=== PATIENT | male | born 1940 | race Caucasian/White ===

== ENCOUNTER 2016-11-03 12:30 | Inpatient (IN) | payer OTHER ==
[2016-11-03] MEDS ORDERED: PHARMACY CONSULT - DOSE _____ XX SCH (15:06)
[2016-11-03] MEDS: NS 1000 ML 1,000 ML IV SCH (15:37)
[2016-11-03 15:45] LABS: BASOPHILS # (AUTO) 0.1 X10^3/uL (0.0-0.1); BASOPHILS % (AUTO) 0.8 % (0.2-1.0); EOSINOPHILS # (AUTO) 0.4 x10^3/uL (0.0-0.2); EOSINOPHILS % (AUTO) 2.7 % (0.9-2.9); LYMPHOCYTES # (AUTO) 1.3 X10^3/uL (1.3-2.9); LYMPHOCYTES % (AUTO) 9.7 % (21.0-51.0); MEAN CORPUSCULAR HEMOGLOBIN 30.4 pg (27.0-34.0); MEAN CORPUSCULAR HGB CONC 33.3 g/dL (33.0-35.0); MEAN CORPUSCULAR VOLUME 91.3 fL (80.0-100.0); MONOCYTES # (AUTO) 1.3 x10^3/uL (0.3-0.8); MONOCYTES % (AUTO) 9.3 % (0.0-13.0); NEUTROPHILS # (AUTO) 10.4 x10^3/uL (2.2-4.8); NEUTROPHILS % (AUTO) 77.5 % (42.0-75.0); PLATELET COUNT 327 X10^3/uL (150.0-450.0); RED BLOOD COUNT 3.28 X10^6/uL (4.7-6.0); RED CELL DISTRIBUTION WIDTH 13.5 % (11.6-16.5); WHITE BLOOD COUNT 13.5 X10^3/uL (3.6-10.0)
[2016-11-03 15:58] LABS: ALBUMIN 2.7 g/dL (3.4-5.0); C-REACTIVE PROTEIN 60.6 mg/L (0-3.0); CARBON DIOXIDE 26.5 mmol/L (21-32); CREATININE 2.05 mg/dL (0.70-1.30); TOTAL PROTEIN 7.9 g/dL (6.4-8.2)
[2016-11-03 16:02] VITALS: BMI 32.8
[2016-11-03] MEDS: HumuLIN R SUBCUT PRN (16:44)
[2016-11-03 17:50] LABS: ERYTHROCYTE SEDIMENTATION RATE 111 MM/HOUR (0-15)
[2016-11-03] MEDS: ROCEPHIN VIAL 1 GM 1 GM in NS 50 ML IV + SPIKE MINIBAG* 50 ML IV SCH (17:55)
[2016-11-03] MEDS ORDERED: MILK OF MAGNESIA PO PRN (19:07)
[2016-11-03] MEDS ORDERED: PROVENTIL NEB TX 0.083% 2.5MG/ 3ML NEB PRN (19:52)
[2016-11-03] MEDS: LIPITOR TAB 40 MG PO SCH (20:36)
[2016-11-03] MEDS: PROSCAR PO SCH (20:36)
[2016-11-03] MEDS: VISTARIL PO PRN (20:37)
[2016-11-03] MEDS: COLACE CAP 100 MG PO SCH (20:39)
[2016-11-03] MEDS: COREG TAB 12.5 MG PO SCH (20:39)
[2016-11-03] MEDS: ULTRAM PO PRN (20:39)
[2016-11-03] MEDS: COUMADIN TAB 7.5 MG PO SCH (20:41)
[2016-11-03] MEDS: SNACK - Diabetic Appropriate PO SCH (20:43)
[2016-11-03] MEDS ORDERED: LANTUS SC SCH (21:00)
[2016-11-04] MEDS ORDERED: BENADRYL CAP 50 MG PO PRN (01:41)
[2016-11-04] MEDS ORDERED: BENADRYL CAP/TAB 25 MG PO ONE (01:43)
[2016-11-04] MEDS: ULTRAM PO PRN ×3 (04:31→18:06)
[2016-11-04] MEDS: NS 1000 ML 1,000 ML IV SCH ×2 (04:32→14:23)
[2016-11-04 06:21] LABS: BASOPHILS # (AUTO) 0.1 X10^3/uL (0.0-0.1); BASOPHILS % (AUTO) 0.9 % (0.2-1.0); EOSINOPHILS # (AUTO) 0.4 x10^3/uL (0.0-0.2); EOSINOPHILS % (AUTO) 3.9 % (0.9-2.9); HEMATOCRIT 28.5 % (42.0-54.0); HEMOGLOBIN 9.6 g/dL (13.5-18.0); LYMPHOCYTES # (AUTO) 1.7 X10^3/uL (1.3-2.9); LYMPHOCYTES % (AUTO) 14.5 % (21.0-51.0); MEAN CORPUSCULAR HEMOGLOBIN 30.5 pg (27.0-34.0); MEAN CORPUSCULAR HGB CONC 33.6 g/dL (33.0-35.0); MEAN CORPUSCULAR VOLUME 90.7 fL (80.0-100.0); MEAN PLATELET VOLUME 8.5 fL (7.4-11.0); MONOCYTES # (AUTO) 1.3 x10^3/uL (0.3-0.8); MONOCYTES % (AUTO) 11.7 % (0.0-13.0); NEUTROPHILS # (AUTO) 7.9 x10^3/uL (2.2-4.8); PLATELET COUNT 287 X10^3/uL (150.0-450.0); RED BLOOD COUNT 3.15 X10^6/uL (4.7-6.0); WHITE BLOOD COUNT 11.4 X10^3/uL (3.6-10.0)
[2016-11-04 06:32] LABS: ALANINE AMINOTRANSFERASE 20 Units/L (12-78); ALBUMIN 2.5 g/dL (3.4-5.0); ALKALINE PHOSPHATASE 133 Units/L (46-116); ASPARTATE AMINO TRANSFERASE 22 Units/L (15-37); BLOOD UREA NITROGEN 49 mg/dL (7-18); CALCIUM 8.8 mg/dL (8.5-10.1); CARBON DIOXIDE 25.6 mmol/L (21-32); CHLORIDE 104 mmol/L (98-107); CREATININE 1.74 mg/dL (0.70-1.30); GLUCOSE 87 mg/dL (65-99); SODIUM 139 mmol/L (136-145); TOTAL PROTEIN 7.5 g/dL (6.4-8.2); eGFR BLACK RACES 49 (>60); eGFR NON BLACK RACES 41 (>60)
[2016-11-04 07:21] LABS: ERYTHROCYTE SEDIMENTATION RATE 108 MM/HOUR (0-15)
[2016-11-04] MEDS: IMDUR PO SCH (08:51)
[2016-11-04] MEDS: COREG TAB 12.5 MG PO SCH ×2 (08:51→22:07)
[2016-11-04] MEDS: HYZAAR 50/12.5 MG PO SCH (08:52)
[2016-11-04] MEDS: ROCEPHIN VIAL 1 GM 1 GM in NS 50 ML IV + SPIKE MINIBAG* 50 ML IV SCH (08:57)
[2016-11-04] MEDS: PULMICORT NEB TX 0.5 MG NEB SCH (08:58)
[2016-11-04] MEDS ORDERED: LANTUS SC SCH (09:00)
[2016-11-04] MEDS ORDERED: LASIX PO SCH (09:00)
[2016-11-04] MEDS ORDERED: ALDACTONE TAB 25 MG PO SCH (09:00)
[2016-11-04] MEDS ORDERED: REFLEX: PROVENTIL NEB & PulmiCORT NEB~ NEB SCH (09:00)
[2016-11-04] MEDS: VISTARIL PO PRN ×2 (09:00→18:06)
[2016-11-04] MEDS: ATARAX TAB 25 MG PO SCH ×3 (11:00→22:04)
[2016-11-04] MEDS: HumuLIN R SUBCUT PRN (11:45)
--- NOTE | 2016-11-04 11:57 | DR.H&P ---
H&P - History & Physical for Day of: H&P Date: 11/03/16 - Chief Complaint Chief Complaint: Renal Failure - Allergies Allergies/Adverse Reactions: Allergies Allergy/AdvReac Type Severity Reaction Status Date / Time Oxycodone Allergy Mild NAUSEA Verified 11/03/16 15:36 Acetaminophen Allergy Verified 11/03/16 17:38 [From Lorcet 10650] Azithromycin Allergy Verified 07/30/14 11:29 Clindamycin Allergy Verified 07/30/14 11:29 Hydrocodone Allergy Verified 11/03/16 17:38 [From Lorcet 10650] Pseudoephedrine Allergy Verified 07/30/14 11:29 [From Sudafed] Ramipril [From Altace] Allergy Verified 07/30/14 11:29 Rosiglitazone [From Avandia] Allergy Verified 07/30/14 11:29 - History of Present Illness History of Present Illness: Patient is an 76 yo male who presented to the hospital as a direct admit from the office after receiving his outpatient lab work show acute renal failure. Patient was admitted for Acute on chronic renal failure. Patient started on NS@75 and Rocephin 1gm IV Daily. We resumed his home medications with the exception of his aldactone and Lasix. Patient has a history of Renal Failure, Diabetes Mellitus Type 2, Coronary artery disease, pacemaker and defibrillator placement, Hyperlipidemia, Hypertension, COPD. Patient is also noted to have a small tunneling wound to his right heel which we are setting up a wound culture for. Vital signs on arrival 98.3, 60, 20, 98% on RA, 143/67. Labs are within normal limits with the exception of WBC 13.5, RBC 3.28, Hgb 10.0 Hct 30.0, Neut% 77.5, Lymph% 9.7, Neut# 10.4, [place]# 1.3, Eos # 0.4, ESR 111, INR 1.58, Sodium 134, Potassium 5.7, BUN 60, Creatinine 2.05, Est GFR 34, Glucose 163, Alkaline Phosphate 141, CRP 60.60, Albumin 2.7, Globulin 5.2, Albumin/Globulin Ratio 0.5. We will follow up with patient in the am with repeat labs and continue his current treatment. - Past Medical History Past Medical History: COPD, Coronary Artery Disease, Diabetes, Dyslipidemia, Hypertension, Renal Disease Additional Medical History: Pacemaker, Defibrillator - Past Surgical History Surgical History: CABG/Valve Surgery, Other - Family History Family Medical History: Heart Failure, Hypertension - Social History Does patient currently use any type of tobacco product: No Have you used tobacco products in the last 12 months: No Type of Tobacco Use: None Does any household member use tobacco: No Alcohol Use: None Drug Use: None - Medications Home Medications: Budesonide-Formoterol [SYMBICORT INH 160/4.5 mcg] 1 - 2 puff IN DAILY 11/03/16 [ History Confirmed 11/03/16] Ciprofloxacin HCl [Cipro 750 mg tab] 750 mg PO BID 11/03/16 [History Confirmed 11/03/16] Diphenhydramine HCl [Benadryl Cap/Tab 25 mg] 25 mg PO Q4-6H PRN 11/03/16 [ History Confirmed 11/03/16] Docusate Sodium [COLACE CAP 100 MG *] 200 mg PO HS 11/03/16 [History Confirmed 11/03/16] Insulin Lispro (Human) [Humalog] 4 - 6 unit SC AC PRN 11/03/16 [History Confirmed 11/03/16] Magnesium Hydroxide Susp [Milk of Magnesia] 30 ml PO HS PRN 11/03/16 [History Confirmed 11/03/16] Spironolactone [Aldactone] 100 mg PO DAILY 11/03/16 [History Confirmed 11/03/16] Tramadol HCl 50 mg PO BID PRN 11/03/16 [History Confirmed 11/03/16] - Review of Systems Constitutional: No Symptoms Reported Eyes: No Symptoms Reported ENT: No Symptoms Reported Respiratory: No Symptoms Reported Cardiovascular: No Symptoms Reported Gastrointestinal: No Symptoms Reported Genitourinary: No Symptoms Reported Musculoskeletal: Leg Pain (right leg and foot pain) Skin: No Symptoms Reported Neurological: No Symptoms Reported - Physical Exam Vital Signs: 98.3, 60, 20, 98% on RA, 143/67. Oriented: Normal Eyes: Normal Ear: Normal Nose: Normal Throat: Normal Respiratory: Clear Throughout Cardiovascular: Normal : Normal Auscultation: Bowel Sounds: Normal Palpation: Normal Tenderness: Normal Skin: Normal Musculoskeletal: Right, Foot (tunelling would to right foot) Psychiatric: Normal Mood Description: Calm, Appropriate Affect: Normal Speech Pattern: Clear, Appropriate - Assessment/Plan (1) Hyperlipidemia Qualifiers: Hyperlipidemia type: H Status: Acute Plan: continue lipitor (2) Acute renal failure Qualifiers: Acute renal failure type: A Status: Acute Plan: NS @75, hold aldactone and lasix (3) Constipation Qualifiers: Constipation type: C Status: Acute Plan: resume home medication of colace (4) Unspecified open wound, right foot, initial encounter Qualifiers: Encounter type: E Status: Acute Plan: wound culture, rocephin IV (5) CAD (coronary artery disease) Qualifiers: Coronary Disease-Associated Artery/Lesion type: C [place] vs. transplanted heart: N Associated angina: A Status: Chronic Plan: continue to monitor (6) COPD (chronic obstructive pulmonary disease) Qualifiers: COPD type: chronic bronchitis Chronic bronchitis type: C Emphysema type: E Status: Chronic Plan: proventil nebulizer (7) Diabetes mellitus, type 2 Qualifiers: Diabetes mellitus complication status: D Diabetes mellitus complication detail: D Diabetic retinopathy severity: D Proliferative retinopathy type: P Diabetes mellitus macular edema: D Diabetes mellitus termite control servicer insulin use : D Laterality: L Chronic kidney disease stage: C Status: Chronic Plan: continue lantus, OTBS ACHS with Regular insulin sliding scale coverage (8) Essential hypertension Status: Chronic Plan: continue hyzaar, isosorbide mononitrate
--- NOTE | 2016-11-04 12:13 | PCM.PROG ---
Progress Note - Progress Note for Day of Date: 11/04/16 - Subjective Subjective: Patient is a 76 yo male admitted with acute on chronic renal failure. Patinet states he is having a good bit of pain in his right leg and the ultram is working good but does not last very long so we are going to increase to every 4hrs as needed. Patient also complains of itching and we are going to start atarax 50mg TID. We are going to call dr. ellis office to get his bone scan he had performed. Vital signs this am are 97.7, 51, 20, 95% on [place], 168/75. Labs aer within normal limits with the exception of WBC 11.4, RBC 3.15, Hgb 9.6, Hct 28.5, Lymph% 14.5, Eos% 3.9, Neut# 7.9, [place]# 1.3, Eos# 0.4, ESR 108, INR !.70, BUN 49, Creatinine 1.74, Est GFR 41, Alkaline PHosphate 133, CRP 54.60, Albumin 2.5, Globulin 5.0, Albumin/Globulin Ratio 0.5. We will continue with his current treatment plan with the addition of increasing ultram frequency and adding atarax. - Past Medical Family Social History Past Med/Fam/Surg Hx: No changes since H&P Allergies: Allergies Oxycodone Allergy (Mild, Verified 11/03/16 15:36) NAUSEA Acetaminophen [From Lorcet 10/650] Allergy (Verified 11/03/16 17:38) Azithromycin Allergy (Verified 07/30/14 11:29) Clindamycin Allergy (Verified 07/30/14 11:29) Hydrocodone [From Lorcet 10/650] Allergy (Verified 11/03/16 17:38) Pseudoephedrine [From Sudafed] Allergy (Verified 07/30/14 11:29) Ramipril [From Altace] Allergy (Verified 07/30/14 11:29) Rosiglitazone [From Avandia] Allergy (Verified 07/30/14 11:29) - Review of Systems ROS: No change since H&P - Vital Signs and I&O's Vital Signs: 97.7, 51, 20, 95% on [place], 168/75 Intake and Output: Intake & Output 11/02/16 11/03/16 11/04/16 11/05/16 11:59 11:59 11:59 11:59 Intake Total 1620 Output Total 1550 Balance 70 - Physical Exam Oriented: Normal Eyes: Normal Ear: Normal Nose: Normal Throat: Normal Cardiovascular: Normal : Normal Auscultation: Bowel Sounds: Normal Palpation: Normal Tenderness: Normal Skin: Normal Musculoskeletal: Right, Foot (tunelling would to right foot) Psychiatric: Normal Mood Description: Calm, Appropriate Affect: Normal Speech Pattern: Clear, Appropriate - Laboratory and Diagnostics Result Diagrams: 11/04/16 03:35 11/04/16 03:35 Labs: 11/03/16 17:14 Foot - Right Gram Stain - Final 11/03/16 17:14 Foot - Right Wound Culture - Preliminary Laboratory WBC 11.4 X10^3/uL (3.6-10.0) H 11/04/16 03:35 RBC 3.15 X10^6/uL (4.7-6.0) L 11/04/16 03:35 Hgb 9.6 g/dL (13.5-18.0) L 11/04/16 03:35 Hct 28.5 % (42.0-54.0) L 11/04/16 03:35 MCV 90.7 fL (80.0-100.0) 11/04/16 03:35 MCH 30.5 pg (27.0-34.0) 11/04/16 03:35 MCHC 33.6 g/dL (33.0-35.0) 11/04/16 03:35 RDW 13.0 % (11.6-16.5) 11/04/16 03:35 Plt Count 287 X10^3/uL (150.0-450.0) 11/04/16 03:35 MPV 8.5 fL (7.4-11.0) 11/04/16 03:35 Neut % 69.0 % (42.0-75.0) 11/04/16 03:35 Lymph % 14.5 % (21.0-51.0) L 11/04/16 03:35 [place] % 11.7 % (0.0-13.0) 11/04/16 03:35 Eos % 3.9 % (0.9-2.9) H 11/04/16 03:35 Baso % 0.9 % (0.2-1.0) 11/04/16 03:35 Neut # 7.9 x10^3/uL (2.2-4.8) H 11/04/16 03:35 Lymph # 1.7 X10^3/uL (1.3-2.9) 11/04/16 03:35 [place] # 1.3 x10^3/uL (0.3-0.8) H 11/04/16 03:35 Eos # 0.4 x10^3/uL (0.0-0.2) H 11/04/16 03:35 Baso # 0.1 X10^3/uL (0.0-0.1) 11/04/16 03:35 Absolute Nucleated RBC 0.0 /100WBC 11/04/16 03:35 ESR 108 MM/HOUR (0-15) H 11/04/16 03:35 INR Target Range - 11/04/16 03:35 INR 1.70 (0.8-1.3) H 11/04/16 03:35 Sodium 139 mmol/L (136-145) 11/04/16 03:35 Corrected Sodium TNP 11/04/16 03:35 Potassium 5.1 mmol/L (3.5-5.1) 11/04/16 03:35 Chloride 104 mmol/L (98-107) 11/04/16 03:35 Carbon Dioxide 25.6 mmol/L (21-32) 11/04/16 03:35 BUN 49 mg/dL (7-18) H 11/04/16 03:35 Creatinine 1.74 mg/dL (0.70-1.30) H 11/04/16 03:35 Est GFR (MDRD) Af Amer 49 (>60) L 11/04/16 03:35 Est GFR (MDRD) Non-Af 41 (>60) L 11/04/16 03:35 Glucose 87 mg/dL (65-99) 11/04/16 03:35 Calcium 8.8 mg/dL (8.5-10.1) 11/04/16 03:35 Corrected Calcium 10.0 mg/dL (8.5-10.1) 11/04/16 03:35 Total Bilirubin 0.30 mg/dL (0.2-1.0) 11/04/16 03:35 AST 22 Units/L (15-37) 11/04/16 03:35 ALT 20 Units/L (12-78) 11/04/16 03:35 Alkaline Phosphatase 133 Units/L (46-116) H 11/04/16 03:35 C-Reactive Protein 54.60 mg/L (0-3.0) H 11/04/16 03:35 Total Protein 7.5 g/dL (6.4-8.2) 11/04/16 03:35 Albumin 2.5 g/dL (3.4-5.0) L 11/04/16 03:35 Globulin 5.0 g/dL (2.5-4.5) H 11/04/16 03:35 Albumin/Globulin Ratio 0.5 Ratio (1.1-2.1) L 11/04/16 03:35 - Plan (1) Hyperlipidemia Status: Acute Qualifiers: Hyperlipidemia type: H Plan: continue lipitor (2) Acute renal failure Status: Acute Qualifiers: Acute renal failure type: A Plan: NS @75, hold aldactone and lasix (3) Constipation Status: Acute Qualifiers: Constipation type: C Plan: resume home medication of colace (4) Unspecified open wound, right foot, initial encounter Status: Acute Qualifiers: Encounter type: E Plan: wound culture, rocephin IV (5) CAD (coronary artery disease) Status: Chronic Qualifiers: Coronary Disease-Associated Artery/Lesion type: C [place] vs. transplanted heart: N Associated angina: A Plan: continue to monitor (6) COPD (chronic obstructive pulmonary disease) Status: Chronic Qualifiers: COPD type: chronic bronchitis Chronic bronchitis type: C Emphysema type: E Plan: proventil nebulizer (7) Diabetes mellitus, type 2 Status: Chronic Qualifiers: Diabetes mellitus complication status: D Diabetes mellitus complication detail: D Diabetic retinopathy severity: D Proliferative retinopathy type: P Diabetes mellitus macular edema: D Diabetes mellitus shelter insulin use : D Laterality: L Chronic kidney disease stage: C Plan: continue lantus, OTBS ACHS with Regular insulin sliding scale coverage (8) Essential hypertension Status: Chronic Plan: continue hyzaar, isosorbide mononitrate (9) Itching Status: Acute Plan: atarax 50mg TID (10) Right leg pain Status: Acute Plan: increased ultram frequency to every 4hr
[2016-11-04] MEDS: COLACE CAP 100 MG PO SCH (22:04)
[2016-11-04] MEDS: LIPITOR TAB 40 MG PO SCH (22:04)
[2016-11-04] MEDS: COUMADIN TAB 7.5 MG PO SCH (22:04)
[2016-11-04] MEDS: PROSCAR PO SCH (22:05)
[2016-11-04] MEDS: SNACK - Diabetic Appropriate PO SCH (22:08)
[2016-11-05] MEDS: ULTRAM PO PRN ×3 (03:18→21:03)
[2016-11-05] MEDS: BENADRYL CAP/TAB 25 MG PO PRN ×2 (03:18→21:03)
[2016-11-05 05:33] LABS: BASOPHILS # (AUTO) 0.1 X10^3/uL (0.0-0.1); BASOPHILS % (AUTO) 0.6 % (0.2-1.0); EOSINOPHILS # (AUTO) 0.4 x10^3/uL (0.0-0.2); EOSINOPHILS % (AUTO) 3.6 % (0.9-2.9); HEMATOCRIT 27.6 % (42.0-54.0); HEMOGLOBIN 9.4 g/dL (13.5-18.0); LYMPHOCYTES # (AUTO) 1.4 X10^3/uL (1.3-2.9); LYMPHOCYTES % (AUTO) 11.5 % (21.0-51.0); MEAN CORPUSCULAR HEMOGLOBIN 30.8 pg (27.0-34.0); MEAN CORPUSCULAR HGB CONC 34.1 g/dL (33.0-35.0); MEAN CORPUSCULAR VOLUME 90.6 fL (80.0-100.0); MEAN PLATELET VOLUME 8.6 fL (7.4-11.0); MONOCYTES # (AUTO) 1.4 x10^3/uL (0.3-0.8); MONOCYTES % (AUTO) 11.6 % (0.0-13.0); NEUTROPHILS # (AUTO) 8.8 x10^3/uL (2.2-4.8); NEUTROPHILS % (AUTO) 72.7 % (42.0-75.0); PLATELET COUNT 276 X10^3/uL (150.0-450.0); RED BLOOD COUNT 3.05 X10^6/uL (4.7-6.0); RED CELL DISTRIBUTION WIDTH 13.2 % (11.6-16.5); WHITE BLOOD COUNT 12.1 X10^3/uL (3.6-10.0)
[2016-11-05 05:36] LABS: ALANINE AMINOTRANSFERASE 20 Units/L (12-78); ALBUMIN 2.4 g/dL (3.4-5.0); ALKALINE PHOSPHATASE 131 Units/L (46-116); ASPARTATE AMINO TRANSFERASE 22 Units/L (15-37); BLOOD UREA NITROGEN 42 mg/dL (7-18); CALCIUM 8.3 mg/dL (8.5-10.1); CARBON DIOXIDE 22.3 mmol/L (21-32); CHLORIDE 105 mmol/L (98-107); COR CA(FOR HYPOALB) 9.6 mg/dL (8.5-10.1); CREATININE 1.64 mg/dL (0.70-1.30); GLUCOSE 68 mg/dL (65-99); SODIUM 139 mmol/L (136-145); TOTAL PROTEIN 7.2 g/dL (6.4-8.2); eGFR BLACK RACES 53 (>60); eGFR NON BLACK RACES 44 (>60)
[2016-11-05] MEDS: ATARAX TAB 25 MG PO SCH ×2 (05:43→13:07)
[2016-11-05] MEDS: NS 1000 ML 1,000 ML IV SCH ×4 (05:44→23:42)
[2016-11-05 07:15] LABS: ERYTHROCYTE SEDIMENTATION RATE 112 MM/HOUR (0-15)
[2016-11-05] MEDS: PULMICORT NEB TX 0.5 MG NEB SCH ×2 (08:51→21:30)
[2016-11-05] MEDS: HYZAAR 50/12.5 MG PO SCH (09:04)
[2016-11-05] MEDS: VISTARIL PO PRN (09:04)
[2016-11-05] MEDS: IMDUR PO SCH (09:04)
[2016-11-05] MEDS: COREG TAB 12.5 MG PO SCH ×2 (09:05→21:05)
[2016-11-05] MEDS: ROCEPHIN VIAL 1 GM 1 GM in NS 50 ML IV + SPIKE MINIBAG* 50 ML IV SCH (09:06)
[2016-11-05] MEDS: LANTUS SC SCH (09:06)
[2016-11-05] MEDS ORDERED: PHARMACY CONSULT - VANCOMYCIN XX SCH (10:00)
[2016-11-05] MEDS ORDERED: VANCOMYCIN HCL 500 MG VIAL 250 MG, VANCOMYCIN HCL 1 GM VIAL 1 GM in NS 250 ML IV 250 ML IV SCH (11:00)
--- NOTE | 2016-11-05 11:50 | CT ---
HISTORY: Right knee pain Study: CT right knee without contrast Comparison: None Technique: Axial non contrast images with coronal and sagittal reformats. Dose reduction procedures were used with MA/kv adjusted for body size. Findings: There is no evidence for fracture, lytic, or blastic lesion. No joint erosion is identified. The med ial, lateral, and patellofemoral compartments are preserved. A moderately large joint effusion is pr esent. No periarticular soft tissue abnormality is identified. No popliteal cyst is identified. Mult iple surgical clips are present within the medial soft tissues. IMPRESSION: Joint effusion Reported By:
--- NOTE | 2016-11-05 11:55 | CT ---
HISTORY: Right hip pain, nontraumatic Study: CT right hip without contrast Comparison: None, no plain films were obtained. Technique: Axial noncontrast images with coronal and sagittal reformats. Dose reduction procedures w ere used with MA/kv adjusted for body size. Findings: The bones are osteopenic. The visualized portion of the sacrum and right SI joint are normal. The vi sualized pelvic bones are intact. The right hip joint is intact. No joint erosions are identified. T here is moderate degenerative joint space narrowing present. No fracture, lytic, or blastic lesion i s identified. No joint effusion or periarticular soft tissue abnormality is identified. IMPRESSION: Moderate degenerative joint space narrowing right hip Reported By:
--- NOTE | 2016-11-05 13:30 | PCM.PROG ---
Progress Note - Progress Note for Day of Date: 11/05/16 - Subjective Subjective: Patient is a 76 yo male admitted with acute on chronic renal failure. Patient states that increasing the ultram has helped a good bit with the pain. As well as the atarax for itching. We received a copy of his bone scan from Dr. Vieyra which shows Mild right posterior calcaneal osteomyelitis. We are going to order a CT without contrast of the right knee and right hip due to the patient having the inability bear much weight on right leg. Patient will be started on vancomycin per pharmacy dosing due to his renal failure. We will also begin arranging for patient to receive the vancomycin at home and will be having a PICC line place on Tuesday to receive the vancomycin for 6 weeks. Vital signs this am 98.1, 65, 20, 97% on RA, 133/63. Labs are within normal limits with the exception of WBC 12.1, RBC 3.05, hgb 9.4, Hct 27.6 , Lymph% 11.5, Eps% 3.6, Neut# 8.8, [place]# 1.4, Eos# 0.4, ESR 112, INR 1.61, BUN 42, Creatinine 1.64, Est Gfr 44, Calcium 8.3, Alkaline phosphate 131, CRP 65.20 , Albumin 2.4, Globulin 2.8, Albumin/Globulin Ratio 0.5. We will follow up [facility] patient with repeat labs in the am. - Past Medical Family Social History Past Med/Fam/Surg Hx: No changes since H&P Allergies: Allergies MS Oxycodone [Oxycodone] Allergy (Mild, Verified 11/03/16 15:36) NAUSEA MS Acetaminophen [From Lorcet 10/650] Allergy (Verified 11/03/16 17:38) MS Azithromycin [Azithromycin] Allergy (Verified 07/30/14 11:29) MS Clindamycin [Clindamycin] Allergy (Verified 07/30/14 11:29) MS Hydrocodone [From Lorcet 10/650] Allergy (Verified 11/03/16 17:38) MS Pseudoephedrine [From Sudafed] Allergy (Verified 07/30/14 11:29) MS Ramipril [From Altace] Allergy (Verified 07/30/14 11:29) MS Rosiglitazone [From Avandia] Allergy (Verified 07/30/14 11:29) - Review of Systems ROS: No change since H&P - Vital Signs and I&O's Vital Signs: Temperature 98.1 F Pulse Rate [Right Brachial] 65 Respiratory Rate 20 Blood Pressure [Left Arm] 146/70 Blood Pressure [Right Arm] 133/63 Blood Pressure 146/70 O2 Sat by Pulse Oximetry 97 Intake and Output: Intake & Output 11/03/16 11/04/16 11/05/16 11/06/16 11:59 11:59 11:59 11:59 Intake Total 1620 2980 Output Total 1550 3275 Balance 70 -295 - Physical Exam Oriented: Normal Eyes: Normal Ear: Normal Nose: Normal Throat: Normal Cardiovascular: Normal : Normal Auscultation: Bowel Sounds: Normal Tenderness: Normal Skin: Normal Musculoskeletal: Right, Leg (right leg limited mobility and ROM), Foot ( tunelling would to right foot) Psychiatric: Normal Mood Description: Calm, Appropriate Affect: Normal Speech Pattern: Clear - Laboratory and Diagnostics Result Diagrams: 11/05/16 03:05 11/05/16 03:05 Labs: 11/03/16 17:14 Foot - Right Gram Stain - Final 11/03/16 17:14 Foot - Right Wound Culture - Final Enterococcus Faecalis Laboratory WBC 12.1 X10^3/uL (3.6-10.0) H 11/05/16 03:05 RBC 3.05 X10^6/uL (4.7-6.0) L 11/05/16 03:05 Hgb 9.4 g/dL (13.5-18.0) L 11/05/16 03:05 Hct 27.6 % (42.0-54.0) L 11/05/16 03:05 MCV 90.6 fL (80.0-100.0) 11/05/16 03:05 MCH 30.8 pg (27.0-34.0) 11/05/16 03:05 MCHC 34.1 g/dL (33.0-35.0) 11/05/16 03:05 RDW 13.2 % (11.6-16.5) 11/05/16 03:05 Plt Count 276 X10^3/uL (150.0-450.0) 11/05/16 03:05 MPV 8.6 fL (7.4-11.0) 11/05/16 03:05 Neut % 72.7 % (42.0-75.0) 11/05/16 03:05 Lymph % 11.5 % (21.0-51.0) L 11/05/16 03:05 [place] % 11.6 % (0.0-13.0) 11/05/16 03:05 Eos % 3.6 % (0.9-2.9) H 11/05/16 03:05 Baso % 0.6 % (0.2-1.0) 11/05/16 03:05 Neut # 8.8 x10^3/uL (2.2-4.8) H 11/05/16 03:05 Lymph # 1.4 X10^3/uL (1.3-2.9) 11/05/16 03:05 [place] # 1.4 x10^3/uL (0.3-0.8) H 11/05/16 03:05 Eos # 0.4 x10^3/uL (0.0-0.2) H 11/05/16 03:05 Baso # 0.1 X10^3/uL (0.0-0.1) 11/05/16 03:05 Absolute Nucleated RBC 0.0 /100WBC 11/05/16 03:05 ESR 112 MM/HOUR (0-15) H 11/05/16 03:05 INR Target Range - 11/05/16 03:05 INR 1.61 (0.8-1.3) H 11/05/16 03:05 Sodium 139 mmol/L (136-145) 11/05/16 03:05 Corrected Sodium TNP 11/05/16 03:05 Potassium 4.7 mmol/L (3.5-5.1) 11/05/16 03:05 Chloride 105 mmol/L (98-107) 11/05/16 03:05 Carbon Dioxide 22.3 mmol/L (21-32) 11/05/16 03:05 BUN 42 mg/dL (7-18) H 11/05/16 03:05 Creatinine 1.64 mg/dL (0.70-1.30) H 11/05/16 03:05 Est GFR (MDRD) Af Amer 53 (>60) L 11/05/16 03:05 Est GFR (MDRD) Non-Af 44 (>60) L 11/05/16 03:05 Glucose 68 mg/dL (65-99) 11/05/16 03:05 Calcium 8.3 mg/dL (8.5-10.1) L 11/05/16 03:05 Corrected Calcium 9.6 mg/dL (8.5-10.1) 11/05/16 03:05 Total Bilirubin 0.30 mg/dL (0.2-1.0) 11/05/16 03:05 AST 22 Units/L (15-37) 11/05/16 03:05 ALT 20 Units/L (12-78) 11/05/16 03:05 Alkaline Phosphatase 131 Units/L (46-116) H 11/05/16 03:05 C-Reactive Protein 65.20 mg/L (0-3.0) H 11/05/16 03:05 Total Protein 7.2 g/dL (6.4-8.2) 11/05/16 03:05 Albumin 2.4 g/dL (3.4-5.0) L 11/05/16 03:05 Globulin 4.8 g/dL (2.5-4.5) H 11/05/16 03:05 Albumin/Globulin Ratio 0.5 Ratio (1.1-2.1) L 11/05/16 03:05 - Plan (1) Hyperlipidemia Status: Acute Qualifiers: Hyperlipidemia type: H Plan: continue lipitor (2) Acute renal failure Status: Acute Qualifiers: Acute renal failure type: A Plan: NS @75, hold aldactone and lasix (3) Constipation Status: Acute Qualifiers: Constipation type: C Plan: resume home medication of colace (4) Unspecified open wound, right foot, initial encounter Status: Acute Qualifiers: Encounter type: E Plan: wound culture, rocephin IV (5) CAD (coronary artery disease) Status: Chronic Qualifiers: Coronary Disease-Associated Artery/Lesion type: C [place] vs. transplanted heart: N Associated angina: A Plan: continue to monitor (6) COPD (chronic obstructive pulmonary disease) Status: Chronic Qualifiers: COPD type: chronic bronchitis Chronic bronchitis type: C Emphysema type: E Plan: proventil nebulizer (7) Diabetes mellitus, type 2 Status: Chronic Qualifiers: Diabetes mellitus complication status: D Diabetes mellitus complication detail: D Diabetic retinopathy severity: D Proliferative retinopathy type: P Diabetes mellitus macular edema: D Diabetes mellitus ferry terminal agent insulin use : D Laterality: L Chronic kidney disease stage: C Plan: continue lantus, OTBS ACHS with Regular insulin sliding scale coverage (8) Essential hypertension Status: Chronic Plan: continue hyzaar, isosorbide mononitrate (9) Itching Status: Acute Plan: atarax 50mg TID (10) Right leg pain Status: Acute Plan: continue ultram, CT of right knee and right hip (11) Acute osteomyelitis of right calcaneus Status: Acute Plan: vancomycin IV
[2016-11-05] MEDS ORDERED: BENADRYL INJ 50 MG VIAL IVP ONE (15:08)
[2016-11-05] MEDS: COLACE CAP 100 MG PO SCH (21:02)
[2016-11-05] MEDS: LIPITOR TAB 40 MG PO SCH (21:03)
[2016-11-05] MEDS: COUMADIN TAB 7.5 MG PO SCH (21:04)
[2016-11-05] MEDS: PROSCAR PO SCH (21:04)
[2016-11-05] MEDS: SNACK - Diabetic Appropriate PO SCH (21:05)
[2016-11-05] MEDS: ZYVOX 600MG IV 600 MG/300 ML BAG IV SCH (22:37)
[2016-11-06 05:44] LABS: BASOPHILS # (AUTO) 0.1 X10^3/uL (0.0-0.1); BASOPHILS % (AUTO) 0.6 % (0.2-1.0); EOSINOPHILS # (AUTO) 0.3 x10^3/uL (0.0-0.2); EOSINOPHILS % (AUTO) 2.1 % (0.9-2.9); HEMATOCRIT 26.1 % (42.0-54.0); HEMOGLOBIN 8.9 g/dL (13.5-18.0); LYMPHOCYTES # (AUTO) 1.2 X10^3/uL (1.3-2.9); MEAN CORPUSCULAR HEMOGLOBIN 30.8 pg (27.0-34.0); MEAN CORPUSCULAR VOLUME 90.6 fL (80.0-100.0); MEAN PLATELET VOLUME 8.4 fL (7.4-11.0); MONOCYTES # (AUTO) 1.2 x10^3/uL (0.3-0.8); MONOCYTES % (AUTO) 9.4 % (0.0-13.0); NEUTROPHILS # (AUTO) 10.2 x10^3/uL (2.2-4.8); NEUTROPHILS % (AUTO) 78.9 % (42.0-75.0); PLATELET COUNT 226 X10^3/uL (150.0-450.0); RED BLOOD COUNT 2.88 X10^6/uL (4.7-6.0); RED CELL DISTRIBUTION WIDTH 13.3 % (11.6-16.5); WHITE BLOOD COUNT 12.9 X10^3/uL (3.6-10.0)
[2016-11-06 06:01] LABS: ALBUMIN 2.1 g/dL (3.4-5.0); COR CA(FOR HYPOALB) 9.5 mg/dL (8.5-10.1); CREATININE 1.75 mg/dL (0.70-1.30); TOTAL PROTEIN 6.8 g/dL (6.4-8.2)
[2016-11-06] MEDS: PULMICORT NEB TX 0.5 MG NEB SCH ×2 (08:18→20:07)
[2016-11-06] MEDS: HYZAAR 50/12.5 MG PO SCH (08:51)
[2016-11-06] MEDS: IMDUR PO SCH (08:52)
[2016-11-06] MEDS: COREG TAB 12.5 MG PO SCH ×2 (08:52→22:05)
[2016-11-06] MEDS: LANTUS SC SCH (08:53)
[2016-11-06] MEDS: ZYVOX 600MG IV 600 MG/300 ML BAG IV SCH ×2 (08:53→22:03)
[2016-11-06] MEDS: ULTRAM PO PRN ×2 (09:00→22:12)
[2016-11-06] MEDS: BENADRYL CAP/TAB 25 MG PO PRN ×2 (09:00→22:12)
[2016-11-06] MEDS: NS 1000 ML 1,000 ML IV SCH ×2 (09:05→13:29)
[2016-11-06] MEDS: SNACK - Diabetic Appropriate PO SCH (19:50)
[2016-11-06] MEDS: HumuLIN R SUBCUT PRN (22:03)
[2016-11-06] MEDS: LIPITOR TAB 40 MG PO SCH (22:04)
[2016-11-06] MEDS: COUMADIN TAB 7.5 MG PO SCH (22:04)
[2016-11-06] MEDS: COLACE CAP 100 MG PO SCH (22:04)
[2016-11-06] MEDS: PROSCAR PO SCH (22:04)
[2016-11-07] MEDS: NS 1000 ML 1,000 ML IV SCH ×2 (03:30→17:32)
[2016-11-07 05:36] LABS: BASOPHILS # (AUTO) 0.1 X10^3/uL (0.0-0.1); BASOPHILS % (AUTO) 0.6 % (0.2-1.0); EOSINOPHILS # (AUTO) 0.3 x10^3/uL (0.0-0.2); EOSINOPHILS % (AUTO) 2.5 % (0.9-2.9); HEMATOCRIT 26.8 % (42.0-54.0); HEMOGLOBIN 8.9 g/dL (13.5-18.0); LYMPHOCYTES # (AUTO) 0.8 X10^3/uL (1.3-2.9); LYMPHOCYTES % (AUTO) 5.7 % (21.0-51.0); MEAN CORPUSCULAR HEMOGLOBIN 30.1 pg (27.0-34.0); MEAN CORPUSCULAR HGB CONC 33.3 g/dL (33.0-35.0); MEAN CORPUSCULAR VOLUME 90.3 fL (80.0-100.0); MEAN PLATELET VOLUME 8.3 fL (7.4-11.0); MONOCYTES % (AUTO) 7.5 % (0.0-13.0); NEUTROPHILS # (AUTO) 11.1 x10^3/uL (2.2-4.8); NEUTROPHILS % (AUTO) 83.7 % (42.0-75.0); PLATELET COUNT 231 X10^3/uL (150.0-450.0); RED BLOOD COUNT 2.97 X10^6/uL (4.7-6.0); RED CELL DISTRIBUTION WIDTH 13.2 % (11.6-16.5); WHITE BLOOD COUNT 13.3 X10^3/uL (3.6-10.0)
[2016-11-07 06:23] LABS: ALANINE AMINOTRANSFERASE 24 Units/L (12-78); ALBUMIN 2.1 g/dL (3.4-5.0); ALKALINE PHOSPHATASE 133 Units/L (46-116); ASPARTATE AMINO TRANSFERASE 24 Units/L (15-37); BLOOD UREA NITROGEN 38 mg/dL (7-18); CALCIUM 8.1 mg/dL (8.5-10.1); CHLORIDE 105 mmol/L (98-107); COR CA(FOR HYPOALB) 9.6 mg/dL (8.5-10.1); CREATININE 1.55 mg/dL (0.70-1.30); GLUCOSE 110 mg/dL (65-99); SODIUM 136 mmol/L (136-145); TOTAL PROTEIN 6.8 g/dL (6.4-8.2); eGFR BLACK RACES 56 (>60); eGFR NON BLACK RACES 47 (>60)
[2016-11-07] MEDS: ZOFRAN INJ 4 MG VIAL IVP PRN ×2 (06:25→21:13)
[2016-11-07 06:46] LABS: CARBON DIOXIDE 20.1 mmol/L (21-32)
[2016-11-07] MEDS: PULMICORT NEB TX 0.5 MG NEB SCH ×2 (08:40→20:29)
[2016-11-07] MEDS: HYZAAR 50/12.5 MG PO SCH (09:17)
[2016-11-07] MEDS: LANTUS SC SCH (09:18)
[2016-11-07] MEDS: IMDUR PO SCH (09:18)
[2016-11-07] MEDS: COREG TAB 12.5 MG PO SCH ×2 (09:18→21:02)
[2016-11-07] MEDS: ZYVOX 600MG IV 600 MG/300 ML BAG IV SCH ×2 (09:18→21:01)
[2016-11-07] MEDS: BENADRYL CAP/TAB 25 MG PO PRN ×2 (09:21→21:13)
[2016-11-07] MEDS: SNACK - Diabetic Appropriate PO SCH (20:00)
[2016-11-07] MEDS: LIPITOR TAB 40 MG PO SCH (21:02)
[2016-11-07] MEDS: PROSCAR PO SCH (21:02)
[2016-11-07] MEDS: COLACE CAP 100 MG PO SCH (21:02)
[2016-11-07] MEDS: COUMADIN TAB 7.5 MG PO SCH (21:02)
[2016-11-08 05:11] LABS: BASOPHILS # (AUTO) 0.1 X10^3/uL (0.0-0.1); BASOPHILS % (AUTO) 0.5 % (0.2-1.0); EOSINOPHILS # (AUTO) 0.4 x10^3/uL (0.0-0.2); EOSINOPHILS % (AUTO) 3.4 % (0.9-2.9); HEMOGLOBIN 8.3 g/dL (13.5-18.0); LYMPHOCYTES % (AUTO) 8.2 % (21.0-51.0); MEAN CORPUSCULAR HEMOGLOBIN 30.4 pg (27.0-34.0); MEAN CORPUSCULAR HGB CONC 33.3 g/dL (33.0-35.0); MEAN CORPUSCULAR VOLUME 91.2 fL (80.0-100.0); MEAN PLATELET VOLUME 9.2 fL (7.4-11.0); MONOCYTES # (AUTO) 1.1 x10^3/uL (0.3-0.8); MONOCYTES % (AUTO) 9.3 % (0.0-13.0); NEUTROPHILS # (AUTO) 9.2 x10^3/uL (2.2-4.8); NEUTROPHILS % (AUTO) 78.6 % (42.0-75.0); PLATELET COUNT 215 X10^3/uL (150.0-450.0); RED BLOOD COUNT 2.74 X10^6/uL (4.7-6.0); RED CELL DISTRIBUTION WIDTH 13.7 % (11.6-16.5); WHITE BLOOD COUNT 11.7 X10^3/uL (3.6-10.0)
[2016-11-08 05:21] LABS: C-REACTIVE PROTEIN 99.2 mg/L (0-3.0); CARBON DIOXIDE 20.7 mmol/L (21-32); COR CA(FOR HYPOALB) 9.6 mg/dL (8.5-10.1); CREATININE 1.5 mg/dL (0.70-1.30); TOTAL PROTEIN 6.5 g/dL (6.4-8.2)
[2016-11-08 06:06] LABS: ERYTHROCYTE SEDIMENTATION RATE 124 MM/HOUR (0-15)
[2016-11-08] MEDS: ZYVOX 600MG IV 600 MG/300 ML BAG IV SCH (08:26)
[2016-11-08] MEDS: LANTUS SC SCH (08:27)
[2016-11-08] MEDS: NS 1000 ML 1,000 ML IV SCH (08:29)
[2016-11-08] MEDS: HYZAAR 50/12.5 MG PO SCH (08:29)
[2016-11-08] MEDS: COREG TAB 12.5 MG PO SCH (08:29)
[2016-11-08] MEDS: IMDUR PO SCH (08:29)
[2016-11-08] MEDS: PULMICORT NEB TX 0.5 MG NEB SCH (09:39)
[2016-11-08] MEDS ORDERED: LASIX IVP SCH (10:00)
[2016-11-08] MEDS: ULTRAM PO PRN (10:47)
--- NOTE | 2016-11-08 11:02 | PCM.PROG ---
Progress Note - Progress Note for Day of Date: 11/08/16 - Subjective Subjective: Patient is a 76yo male who was admitted with acute on chronic renal failure. Patient also has osteomyelitis of the mild right posterior calcaneal. Patient wound culture grew out enterococcus faecalis which was not sensitive to vancomycin and was changed to zyvox this weekend. Patient knee CT showed a joint effusion and the hip ct showed moderate degenerative joint space narrowing of the right hip. Patient complained of some wheezing and increased shortness of breath and has not been on his home medication of diuretics we are going to give him Lasix 40mg IV x2 doses. We are going to work with case management to get patient set up with home health to have zyvox IV for 2 weeks and patient is also to have PICC line inserted today to receive antibiotics outpatient. Vital Signs are 98.4, 63, 18, 93% on RA, 159/70. Labs are within normal limits with the exception of WBC 11.7, RBC 2.74, Hgb 8.3, Hct 25.0, Neut % 78.6, Lymph# 8.2, EOS% 3.4, Neut# 9.2, Lymph# 1.0, [place]# 1.1, Eos# 0.4, ESR 124, INR 2.43, Carbon Dioxide 20.7, BUN 36, Creatinine 1.50, Est GFR 48, Glucose 119, Calcium 8.0, Alkaline Phosphate 139, CRP 99.20, Albumin 2.0, Albumin/Globulin Ratio 0.4. We will follow up with patient in the am with repeat labs and if everything is set up with home health to receive outpatient antibiotics we will let him go home tomorrow. - Past Medical Family Social History Past Med/Fam/Surg Hx: No changes since H&P Allergies: Allergies MS Oxycodone [Oxycodone] Allergy (Mild, Verified 11/03/16 15:36) NAUSEA MS Acetaminophen [From Lorcet 10650] Allergy (Verified 11/03/16 17:38) MS Azithromycin [Azithromycin] Allergy (Verified 07/30/14 11:29) MS Clindamycin [Clindamycin] Allergy (Verified 07/30/14 11:29) MS Hydrocodone [From Lorcet 10650] Allergy (Verified 11/03/16 17:38) MS Pseudoephedrine [From Sudafed] Allergy (Verified 07/30/14 11:29) MS Ramipril [From Altace] Allergy (Verified 07/30/14 11:29) MS Rosiglitazone [From Avandia] Allergy (Verified 07/30/14 11:29) MS Hydroxyzine [From MS Atarax] Adverse Reaction (Verified 11/05/16 15:45) VISTARIL Adverse Reaction (Uncoded 11/05/16 15:46) - Review of Systems ROS: No change since H&P - Vital Signs and I&O's Vital Signs: Temperature 98.4 F Pulse Rate [Right Brachial] 63 Pulse Rate 60 Respiratory Rate 18 Blood Pressure [Left Arm] 146/70 Blood Pressure [Right Arm] 159/70 Blood Pressure 146/70 O2 Sat by Pulse Oximetry 93 Intake and Output: Intake & Output 11/05/16 11/06/16 11/07/16 11/08/16 11:59 11:59 11:59 11:59 Intake Total 2980 3460 3083 2442 Output Total 3275 150 1125 825 Balance -295 3310 1958 1617 - Physical Exam Oriented: Normal Eyes: Normal Ear: Normal Nose: Normal Throat: Normal Respiratory: Wheezes Cardiovascular: Normal : Normal Auscultation: Bowel Sounds: Normal Tenderness: Normal Skin: Normal Musculoskeletal: Right, Leg (right leg limited mobility and ROM), Foot ( tunelling would to right foot) Psychiatric: Normal Mood Description: Calm, Appropriate Affect: Normal Speech Pattern: Clear - Laboratory and Diagnostics Result Diagrams: 11/08/16 02:55 11/08/16 02:55 Labs: 11/03/16 17:14 Foot - Right Gram Stain - Final 11/03/16 17:14 Foot - Right Wound Culture - Final Enterococcus Faecalis Laboratory WBC 11.7 X10^3/uL (3.6-10.0) H 11/08/16 02:55 RBC 2.74 X10^6/uL (4.7-6.0) L 11/08/16 02:55 Hgb 8.3 g/dL (13.5-18.0) L 11/08/16 02:55 Hct 25.0 % (42.0-54.0) L 11/08/16 02:55 MCV 91.2 fL (80.0-100.0) 11/08/16 02:55 MCH 30.4 pg (27.0-34.0) 11/08/16 02:55 MCHC 33.3 g/dL (33.0-35.0) 11/08/16 02:55 RDW 13.7 % (11.6-16.5) 11/08/16 02:55 Plt Count 215 X10^3/uL (150.0-450.0) 11/08/16 02:55 MPV 9.2 fL (7.4-11.0) 11/08/16 02:55 Neut % 78.6 % (42.0-75.0) H 11/08/16 02:55 Lymph % 8.2 % (21.0-51.0) L 11/08/16 02:55 [place] % 9.3 % (0.0-13.0) 11/08/16 02:55 Eos % 3.4 % (0.9-2.9) H 11/08/16 02:55 Baso % 0.5 % (0.2-1.0) 11/08/16 02:55 Neut # 9.2 x10^3/uL (2.2-4.8) H 11/08/16 02:55 Lymph # 1.0 X10^3/uL (1.3-2.9) L 11/08/16 02:55 [place] # 1.1 x10^3/uL (0.3-0.8) H 11/08/16 02:55 Eos # 0.4 x10^3/uL (0.0-0.2) H 11/08/16 02:55 Baso # 0.1 X10^3/uL (0.0-0.1) 11/08/16 02:55 Absolute Nucleated RBC 0.0 /100WBC 11/08/16 02:55 ESR 124 MM/HOUR (0-15) H 11/08/16 02:55 INR Target Range - 11/08/16 02:55 INR 2.43 (0.8-1.3) H 11/08/16 02:55 Sodium 136 mmol/L (136-145) 11/08/16 02:55 Corrected Sodium 136 mmol/L (136-145) 11/08/16 02:55 Potassium 4.3 mmol/L (3.5-5.1) 11/08/16 02:55 Chloride 106 mmol/L (98-107) 11/08/16 02:55 Carbon Dioxide 20.7 mmol/L (21-32) L 11/08/16 02:55 BUN 36 mg/dL (7-18) H 11/08/16 02:55 Creatinine 1.50 mg/dL (0.70-1.30) H 11/08/16 02:55 Est GFR (MDRD) Af Amer 59 (>60) 11/08/16 02:55 Est GFR (MDRD) Non-Af 48 (>60) L 11/08/16 02:55 Glucose 119 mg/dL (65-99) H 11/08/16 02:55 Calcium 8.0 mg/dL (8.5-10.1) L 11/08/16 02:55 Corrected Calcium 9.6 mg/dL (8.5-10.1) 11/08/16 02:55 Total Bilirubin 0.30 mg/dL (0.2-1.0) 11/08/16 02:55 AST 25 Units/L (15-37) 11/08/16 02:55 ALT 27 Units/L (12-78) 11/08/16 02:55 Alkaline Phosphatase 139 Units/L (46-116) H 11/08/16 02:55 C-Reactive Protein 99.20 mg/L (0-3.0) H 11/08/16 02:55 Total Protein 6.5 g/dL (6.4-8.2) 11/08/16 02:55 Albumin 2.0 g/dL (3.4-5.0) L 11/08/16 02:55 Globulin 4.5 g/dL (2.5-4.5) 11/08/16 02:55 Albumin/Globulin Ratio 0.4 Ratio (1.1-2.1) L 11/08/16 02:55 Random Vancomycin 5.5 ug/mL 11/07/16 00:40 - Plan (1) Hyperlipidemia Status: Acute Qualifiers: Hyperlipidemia type: H Plan: continue lipitor (2) Acute renal failure Status: Acute Qualifiers: Acute renal failure type: A Plan: NS @76, lasix 40mg IV x 2 doses (3) Constipation Status: Acute Qualifiers: Constipation type: C Plan: resume home medication of colace (4) Unspecified open wound, right foot, initial encounter Status: Acute Qualifiers: Encounter type: E Plan: wound culture, Zyvox IV (5) CAD (coronary artery disease) Status: Chronic Qualifiers: Coronary Disease-Associated Artery/Lesion type: C [place] vs. transplanted heart: N Associated angina: A Plan: continue to monitor (6) COPD (chronic obstructive pulmonary disease) Status: Chronic Qualifiers: COPD type: chronic bronchitis Chronic bronchitis type: C Emphysema type: E Plan: proventil nebulizer (7) Diabetes mellitus, type 2 Status: Chronic Qualifiers: Diabetes mellitus complication status: D Diabetes mellitus complication detail: D Diabetic retinopathy severity: D Proliferative retinopathy type: P Diabetes mellitus macular edema: D Diabetes mellitus [facility] insulin use : D Laterality: L Chronic kidney disease stage: C Plan: continue lantus, OTBS ACHS with Regular insulin sliding scale coverage (8) Essential hypertension Status: Chronic Plan: continue hyzaar, isosorbide mononitrate (9) Itching Status: Acute Plan: atarax 50mg TID (10) Right leg pain Status: Acute Plan: continue ultram, CT of right knee and right hip (11) Acute osteomyelitis of right calcaneus Status: Acute Plan: Zyvox IV
--- NOTE | 2016-11-08 16:30 | DR.CARTERD ---
- Discharge Summary for: Discharge Summary for Date of:: 11/08/16 - Admission Date Date of Admission: 11/03/16 - Admission Diagnoses Admission Diagnosis: Acute on Chronic Renal Failure. Diabetes Mellitus Type 2. Hypertension. Coronary artery disease - Discharge Date Discharge Date: 11/08/16 - Discharge Diagnoses Discharge Diagnosis: osteomyelitis of the mild right posterior calcaneal Enterococcus Faecalis positive wound culture Acute on Chronic Renal Failure Diabetes Mellitus Type 2 Hypertension Coronary artery disease - Hospital Course Hospital Course: Patient is a 76yo male who was admitted with acute on chronic renal failure. Patient also has osteomyelitis of the mild right posterior calcaneal that was seen in a previous bone scan by Dr. Sj quezada. Patient was started on IVF and Vancomycin renally dosed by pharmacy. Home medications were resumes with the exception of Lasix and aldactone. Patient wound culture grew out enterococcus faecalis which was not sensitive to vancomycin and was changed to zyvox this weekend. Patient knee CT showed a joint effusion and the hip ct showed moderate degenerative joint space narrowing of the right hip. Patient complained of some wheezing and increased shortness of breath and has not been on his home medication of diuretics we are going to give him Lasix 40mg IV x2 doses. Patient is going to be set up with home health for wound care of wound to right heel and will receive Zyvox 600mg Po Q12hr for 6weeks for treatment of osteomyelitis. Vital Signs are 98.4, 63, 18, 93% on RA, 159/70. Labs are within normal limits with the exception of WBC 11.7, RBC 2.74, Hgb 8.3, Hct 25.0, Neut % 78.6, Lymph# 8.2, EOS% 3.4, Neut# 9.2, Lymph# 1.0, [place]# 1.1, Eos# 0.4, ESR 124, INR 2.43, Carbon Dioxide 20.7, BUN 36, Creatinine 1.50, Est GFR 48, Glucose 119, Calcium 8.0, Alkaline Phosphate 139, CRP 99.20, Albumin 2.0, Albumin/Globulin Ratio 0.4. We will follow up with patient in 1 week in the office. He will resume his home medications with Lasix changed to 40mg daily PRN , the addition of atarax 50mg Po TID and Zyvox 600mg BID for 6weeks. Labs: Labs are within normal limits with the exception of WBC 11.7, RBC 2.74, Hgb 8.3 , Hct 25.0, Neut% 78.6, Lymph# 8.2, EOS% 3.4, Neut# 9.2, Lymph# 1.0, [place]# 1.1, Eos# 0.4, ESR 124, INR 2.43, Carbon Dioxide 20.7, BUN 36, Creatinine 1.50, Est GFR 48, Glucose 119, Calcium 8.0, Alkaline Phosphate 139, CRP 99.20, Albumin 2.0 , Albumin/Globulin Ratio 0.4 - Discharge Medications Discharge Medications: Budesonide-Formoterol [SYMBICORT INH 160-4.5 mcg (10.2 g) *] 1 - 2 puff IN DAILY 11/03/16 [History] Diphenhydramine HCl [Benadryl Cap/Tab 25 mg] 25 mg PO Q4-6H PRN 11/03/16 [ History] Docusate Sodium [COLACE CAP 100 MG *] 200 mg PO HS 11/03/16 [History] Insulin Lispro (Human) [Humalog] 4 - 6 unit SC AC PRN 11/03/16 [History] Magnesium Hydroxide Susp [MILK of MAGNESIA SUSP *] 30 ml PO HS PRN 11/03/16 [ History] Spironolactone [Aldactone] 100 mg PO DAILY 11/03/16 [History] Tramadol HCl 50 mg PO BID PRN 11/03/16 [History] Hydroxyzine HCl 25 mg Tab [ATARAX *] 50 mg PO TID #90 tab 11/08/16 [Rx] Linezolid [ZYVOX TAB 600 MG *] 600 mg PO Q12H #84 tab 11/08/16 [Rx] - Discharge Disposition Discharge Disposition: Home with home health
[2016-11-08 16:47] VITALS: BP 155/70
== END 2016-11-08 17:10 | disposition home health service (06) | DRG 682 ==
LOC: MED/SURG 12:30 → UNDOADMIN 12:30 → MED/SURG 14:44
PROVIDERS: ADMIT Internal Medicine; ATTEND Internal Medicine
DX: N17.8 Other acute kidney failure (principal); L89.613 Pressure ulcer of right heel, stage 3; M86.171 Other acute osteomyelitis, right ankle and foot; N18.9 Chronic kidney disease, unspecified; E11.65 Type 2 diabetes mellitus with hyperglycemia; B95.2 Enterococcus as the cause of diseases classified elsewhere; M25.461 Effusion, right knee; M16.11 Unilateral primary osteoarthritis, right hip; L29.8 Other pruritus; M79.604 Pain in right leg; K59.09 Other constipation; J44.9 Chronic obstructive pulmonary disease, unspecified; I12.9 Hypertensive chronic kidney disease with stage 1 through stage 4 chronic kidney disease, or unspecified chronic kidney disease; E78.2 Mixed hyperlipidemia; Z95.0 Presence of cardiac pacemaker; M25.551 Pain in right hip
CPT/HCPCS: 36415; 73700; 80053; 80202; 85025; 85610; 85652; 86140; 87070; 87075; 87077; 87186; 87205; 94640; 99231; A4222; Q0177; S0138; G0378; J0696; J1200; J1815; J1940; J2020; J2405; J3370; J7613; J7626

== ENCOUNTER 2018-04-11 16:34 | Inpatient (IN) ==
[2018-04-11 17:51] LABS: BASOPHILS # (AUTO) 0.1 X10^3/uL (0.0-0.1); BASOPHILS % (AUTO) 0.9 % (0.2-1.0); EOSINOPHILS # (AUTO) 0.1 x10^3/uL (0.0-0.2); EOSINOPHILS % (AUTO) 0.6 % (0.9-2.9); HEMATOCRIT 31.5 % (42.0-54.0); HEMOGLOBIN 10.5 g/dL (13.5-18.0); LYMPHOCYTES # (AUTO) 0.7 X10^3/uL (1.3-2.9); LYMPHOCYTES % (AUTO) 4.7 % (21.0-51.0); MEAN CORPUSCULAR HEMOGLOBIN 29.7 pg (27.0-34.0); MEAN CORPUSCULAR HGB CONC 33.2 g/dL (33.0-35.0); MEAN CORPUSCULAR VOLUME 89.6 fL (80.0-100.0); MONOCYTES # (AUTO) 1.3 x10^3/uL (0.3-0.8); MONOCYTES % (AUTO) 8.4 % (0.0-13.0); NEUTROPHILS # (AUTO) 13.2 x10^3/uL (2.2-4.8); NEUTROPHILS % (AUTO) 85.4 % (42.0-75.0); PLATELET COUNT 155 X10^3/uL (150.0-450.0); RED BLOOD COUNT 3.52 X10^6/uL (4.7-6.0); WHITE BLOOD COUNT 15.5 X10^3/uL (3.6-10.0)
[2018-04-11 17:58] LABS: ALANINE AMINOTRANSFERASE 25 Units/L (12-78); ALBUMIN 2.6 g/dL (3.4-5.0); ALKALINE PHOSPHATASE 147 Units/L (46-116); ASPARTATE AMINO TRANSFERASE 17 Units/L (15-37); BLOOD UREA NITROGEN 52 mg/dL (7-18); CALCIUM 7.5 mg/dL (8.5-10.1); CARBON DIOXIDE 19.1 mmol/L (21-32); CHLORIDE 105 mmol/L (98-107); COR CA(FOR HYPOALB) 8.6 mg/dL (8.5-10.1); CREATININE 2.14 mg/dL (0.70-1.30); SODIUM 139 mmol/L (136-145); URIC ACID 8.6 mg/dL (3.5-7.2); eGFR NON BLACK RACES 32 (>60)
[2018-04-11 18:29] LABS: ERYTHROCYTE SEDIMENTATION RATE 60 MM/HOUR (0-15)
[2018-04-11] MEDS ORDERED: CONSULT PHARMACY - ANTIBIOTIC XX SCH (19:00)
[2018-04-11] MEDS: NS 1000 ML 1,000 ML IV SCH (19:17)
[2018-04-11 19:44] LABS: BILIRUBIN,URINE NEGATIVE (NEGATIVE); BLOOD/HEMOGLOBIN,URINE 2+ (NEGATIVE); GLUCOSE, URINE NEGATIVE (NEGATIVE); KETONES,URINE NEGATIVE (NEGATIVE); LEUKOCYTE ESTERASE ,URINE 3+ (NEGATIVE); NITRITES,URINE NEGATIVE (NEGATIVE); PROTEIN,URINE 2+ (NEGATIVE); UROBILINOGEN,URINE 1+ (NORMAL)
[2018-04-11 19:51] LABS: APPEARANCE,URINE HAZY (CLEAR); BACTERIA,URINE 2+ /HPF (NEGATIVE); COLOR,URINE AMBER (YELLOW); RBC,URINE TNTC /HPF (NONE SEEN); SQUAMOUS EPITHELIAL CELL,UR MODERATE /HPF (NEGATIVE)
[2018-04-11] MEDS: ZOSYN VIAL 3.375 GRAMS 3.375 G in NS 100 ML IV + SPIKE MINIBAG* 100 ML IV SCH (21:33)
[2018-04-11] MEDS: PROVENTIL NEB TX 0.083% 2.5MG/ 3ML NEB PRN (21:54)
[2018-04-11] MEDS: PULMICORT NEB TX 0.5 MG NEB SCH (21:54)
[2018-04-12] MEDS: ZOSYN VIAL 3.375 GRAMS 3.375 G in NS 100 ML IV + SPIKE MINIBAG* 100 ML IV SCH (05:10)
[2018-04-12 05:15] LABS: BASOPHILS # (AUTO) 0.1 X10^3/uL (0.0-0.1); BASOPHILS % (AUTO) 0.7 % (0.2-1.0); EOSINOPHILS # (AUTO) 0.2 x10^3/uL (0.0-0.2); EOSINOPHILS % (AUTO) 1.6 % (0.9-2.9); HEMATOCRIT 29.3 % (42.0-54.0); HEMOGLOBIN 9.7 g/dL (13.5-18.0); LYMPHOCYTES # (AUTO) 0.7 X10^3/uL (1.3-2.9); LYMPHOCYTES % (AUTO) 5.9 % (21.0-51.0); MEAN CORPUSCULAR HEMOGLOBIN 29.3 pg (27.0-34.0); MEAN CORPUSCULAR VOLUME 88.8 fL (80.0-100.0); MEAN PLATELET VOLUME 9.9 fL (7.4-11.0); MONOCYTES % (AUTO) 8.9 % (0.0-13.0); NEUTROPHILS # (AUTO) 9.6 x10^3/uL (2.2-4.8); NEUTROPHILS % (AUTO) 82.9 % (42.0-75.0); PLATELET COUNT 128 X10^3/uL (150.0-450.0); WHITE BLOOD COUNT 11.6 X10^3/uL (3.6-10.0)
[2018-04-12 05:24] LABS: ALANINE AMINOTRANSFERASE 23 Units/L (12-78); ALBUMIN 2.3 g/dL (3.4-5.0); ALKALINE PHOSPHATASE 155 Units/L (46-116); ASPARTATE AMINO TRANSFERASE 16 Units/L (15-37); BLOOD UREA NITROGEN 58 mg/dL (7-18); CALCIUM 7.5 mg/dL (8.5-10.1); CARBON DIOXIDE 21.9 mmol/L (21-32); CHLORIDE 104 mmol/L (98-107); COR CA(FOR HYPOALB) 8.9 mg/dL (8.5-10.1); CREATININE 2.41 mg/dL (0.70-1.30); SODIUM 139 mmol/L (136-145); TOTAL PROTEIN 6.4 g/dL (6.4-8.2); eGFR NON BLACK RACES 28 (>60)
--- NOTE | 2018-04-12 06:21 | RAD ---
HISTORY: Weakness, shortness of breath Study: Chest AP portable Comparison: 08/03/2015 Findings: There is a pacemaker present on the left obscuring a portion of the left upper lobe. The patient is status post median sternotomy and CABG. The heart remains enlarged. No congestive heart failure is noted on today's examination. No acute alveolar infiltrates or pleural effusions are identified. Now visualized is an irregular nodular density projected over the left lower lobe. This may represent nipple shadow. Repeat film with nipple markers is recommended in order to confirm this and exclude a pulmonary nodule. Diaphragmatic calcifications are now visualized on the left suggestive of prior asbestos exposure. The bony thorax is unremarkable. IMPRESSION: Continued cardiomegaly but without congestive heart failure Nodular density projected over the left lower lobe possibly nipple shadow. Repeat film with nipple markers is recommended. Diaphragmatic calcifications suggestive of prior asbestos exposure Reported By:
--- NOTE | 2018-04-12 08:24 | DR.UPDATE ---
H&P Update History and Physical Update: WAS SEEN IN THE OFFICE ON 04/11/18. A H&P WAS COMPLETED PRIOR TO ADMISSION. PATIENT HAS BEEN SEEN AND EXAMINED WITH NO CHANGES NOTED TO H&P. Changes noted: NO Yes with the following:
[2018-04-12] MEDS: PULMICORT NEB TX 0.5 MG NEB SCH ×2 (09:18→21:00)
[2018-04-12] MEDS ORDERED: PATIENT'S HOME MEDICATION (Ferrous Sulfate [Ferrous Sulfate] 325 MG) PO SCH (09:45)
[2018-04-12] MEDS ORDERED: COLCRYS TAB 0.6 MG PO SCH (10:00)
[2018-04-12] MEDS ORDERED: COREG TAB 3.125 MG PO SCH ×2 (10:00→21:00)
[2018-04-12] MEDS ORDERED: LANTUS SC SCH (10:00)
[2018-04-12] MEDS: PROSCAR PO SCH (10:45)
[2018-04-12] MEDS: ALDACTONE TAB 25 MG PO SCH (10:46)
[2018-04-12] MEDS: COREG TAB 3.125 MG PO SCH ×2 (10:46→20:43)
[2018-04-12] MEDS: ULTRAM PO SCH ×4 (10:46→20:44)
[2018-04-12] MEDS: PriLOSEC PO SCH (10:46)
[2018-04-12] MEDS: SINGULAIR TAB 10 MG PO SCH (10:47)
[2018-04-12] MEDS: FERROUS GLUCONATE PO SCH (10:47)
[2018-04-12] MEDS: IMDUR PO SCH (10:51)
--- NOTE | 2018-04-12 12:23 | VAS ---
HISTORY: Extremity pain, swelling, and edema Study: Left upper extremity Doppler venous ultrasound. TECHNIQUE: Multiple torres scale and color flow Doppler images of the deep venous system were obtained of the upper extremity. FINDINGS: The deep venous system of the left upper extremity evaluated from the level of the internal jugular vein through the radial and ulnar veins. Normal color flow and augmentation can be observed. In addition, normal compression is seen throughout the upper extremity deep venous system. No soft tissue hematoma is seen. IMPRESSION: Negative examination for DVT. Reported By:
[2018-04-12] MEDS: ZOSYN VIAL 2.25 GRAMS 2.25 G in NS 100 ML IV + SPIKE MINIBAG* 100 ML IV SCH ×3 (13:24→22:04)
[2018-04-12] MEDS: NS 1000 ML 1,000 ML IV SCH (16:37)
[2018-04-12] MEDS ORDERED: MAALOX or MYLANTA PO PRN (20:10)
[2018-04-12] MEDS: SNACK - Diabetic Appropriate PO SCH (20:57)
[2018-04-12] MEDS: COUMADIN TAB 5 MG PO SCH (20:57)
[2018-04-13 05:12] LABS: BASOPHILS # (AUTO) 0.1 X10^3/uL (0.0-0.1); BASOPHILS % (AUTO) 0.6 % (0.2-1.0); EOSINOPHILS # (AUTO) 0.2 x10^3/uL (0.0-0.2); EOSINOPHILS % (AUTO) 1.6 % (0.9-2.9); HEMATOCRIT 28.9 % (42.0-54.0); HEMOGLOBIN 9.9 g/dL (13.5-18.0); LYMPHOCYTES # (AUTO) 0.6 X10^3/uL (1.3-2.9); LYMPHOCYTES % (AUTO) 6.6 % (21.0-51.0); MEAN CORPUSCULAR HEMOGLOBIN 30.1 pg (27.0-34.0); MEAN CORPUSCULAR HGB CONC 34.2 g/dL (33.0-35.0); MEAN PLATELET VOLUME 9.8 fL (7.4-11.0); MONOCYTES # (AUTO) 0.7 x10^3/uL (0.3-0.8); MONOCYTES % (AUTO) 7.6 % (0.0-13.0); NEUTROPHILS # (AUTO) 8.2 x10^3/uL (2.2-4.8); NEUTROPHILS % (AUTO) 83.6 % (42.0-75.0); PLATELET COUNT 134 X10^3/uL (150.0-450.0); RED BLOOD COUNT 3.29 X10^6/uL (4.7-6.0); RED CELL DISTRIBUTION WIDTH 15.7 % (11.6-16.5); WHITE BLOOD COUNT 9.8 X10^3/uL (3.6-10.0)
[2018-04-13] MEDS: ZOSYN VIAL 2.25 GRAMS 2.25 G in NS 100 ML IV + SPIKE MINIBAG* 100 ML IV SCH ×3 (05:24→22:00)
[2018-04-13] MEDS: NS 1000 ML 1,000 ML IV SCH (05:24)
[2018-04-13 05:27] LABS: ALANINE AMINOTRANSFERASE 23 Units/L (12-78); ALBUMIN 2.2 g/dL (3.4-5.0); ALKALINE PHOSPHATASE 161 Units/L (46-116); ASPARTATE AMINO TRANSFERASE 21 Units/L (15-37); BLOOD UREA NITROGEN 61 mg/dL (7-18); CALCIUM 7.5 mg/dL (8.5-10.1); CARBON DIOXIDE 19.8 mmol/L (21-32); CHLORIDE 105 mmol/L (98-107); COR CA(FOR HYPOALB) 8.9 mg/dL (8.5-10.1); CREATININE 2.36 mg/dL (0.70-1.30); SODIUM 138 mmol/L (136-145); TOTAL PROTEIN 6.3 g/dL (6.4-8.2); eGFR NON BLACK RACES 29 (>60)
[2018-04-13] MEDS: SINGULAIR TAB 10 MG PO SCH (08:55)
[2018-04-13] MEDS: FERROUS GLUCONATE PO SCH (08:55)
[2018-04-13] MEDS: ULTRAM PO SCH ×4 (08:56→20:38)
[2018-04-13] MEDS: PROSCAR PO SCH (08:56)
[2018-04-13] MEDS: ALDACTONE TAB 25 MG PO SCH (08:56)
[2018-04-13] MEDS: PriLOSEC PO SCH (08:56)
[2018-04-13] MEDS: IMDUR PO SCH (08:56)
[2018-04-13] MEDS: COREG TAB 3.125 MG PO SCH ×2 (08:56→20:42)
[2018-04-13] MEDS ORDERED: ISOSORBIDE MONONITRATE 30 MG PO SCH (09:00)
[2018-04-13] MEDS: PULMICORT NEB TX 0.5 MG NEB SCH ×2 (09:05→20:59)
[2018-04-13] MEDS: PROVENTIL NEB TX 0.083% 2.5MG/ 3ML NEB PRN (09:05)
[2018-04-13] MEDS ORDERED: SOLU-Medrol 125 MG VIAL IVP ONE (14:37)
[2018-04-13] MEDS ORDERED: SOLU-Medrol 125 MG VIAL ONE (17:10)
[2018-04-13] MEDS ORDERED: COLCRYS TAB 0.6 MG ONE ×2 (17:10→19:34)
[2018-04-13] MEDS: COLCRYS TAB 0.6 MG PO SCH ×3 (17:17→20:39)
[2018-04-13] MEDS: COUMADIN TAB 5 MG PO SCH (20:40)
[2018-04-13] MEDS: SNACK - Diabetic Appropriate PO SCH (20:43)
[2018-04-14] MEDS: NS 1000 ML 1,000 ML IV SCH ×4 (03:00→18:24)
[2018-04-14 05:25] LABS: BASOPHILS % (AUTO) 0.2 % (0.2-1.0); HEMATOCRIT 29.3 % (42.0-54.0); HEMOGLOBIN 9.7 g/dL (13.5-18.0); LYMPHOCYTES # (AUTO) 0.2 X10^3/uL (1.3-2.9); LYMPHOCYTES % (AUTO) 4.2 % (21.0-51.0); MEAN CORPUSCULAR HEMOGLOBIN 29.9 pg (27.0-34.0); MEAN CORPUSCULAR HGB CONC 33.1 g/dL (33.0-35.0); MEAN CORPUSCULAR VOLUME 90.2 fL (80.0-100.0); MEAN PLATELET VOLUME 9.3 fL (7.4-11.0); MONOCYTES # (AUTO) 0.1 x10^3/uL (0.3-0.8); MONOCYTES % (AUTO) 1.3 % (0.0-13.0); NEUTROPHILS # (AUTO) 5.5 x10^3/uL (2.2-4.8); NEUTROPHILS % (AUTO) 94.3 % (42.0-75.0); PLATELET COUNT 146 X10^3/uL (150.0-450.0); RED BLOOD COUNT 3.25 X10^6/uL (4.7-6.0); RED CELL DISTRIBUTION WIDTH 15.8 % (11.6-16.5); WHITE BLOOD COUNT 5.9 X10^3/uL (3.6-10.0)
[2018-04-14 05:34] LABS: ALBUMIN 2.2 g/dL (3.4-5.0); CALCIUM 7.6 mg/dL (8.5-10.1); CARBON DIOXIDE 16.8 mmol/L (21-32); CREATININE 2.21 mg/dL (0.70-1.30); TOTAL PROTEIN 6.5 g/dL (6.4-8.2); URIC ACID 8.7 mg/dL (3.5-7.2)
[2018-04-14] MEDS: ZOSYN VIAL 2.25 GRAMS 2.25 G in NS 100 ML IV + SPIKE MINIBAG* 100 ML IV SCH ×3 (06:13→21:55)
[2018-04-14 06:58] LABS: PLATELET MORPHOLOGY COMMENT NORMAL (NORMAL)
[2018-04-14] MEDS: PROVENTIL NEB TX 0.083% 2.5MG/ 3ML NEB PRN (09:05)
[2018-04-14] MEDS: PULMICORT NEB TX 0.5 MG NEB SCH ×2 (09:06→21:34)
[2018-04-14] MEDS: PriLOSEC PO SCH (09:49)
[2018-04-14] MEDS: COREG TAB 3.125 MG PO SCH ×2 (09:49→21:48)
[2018-04-14] MEDS: FERROUS GLUCONATE PO SCH (09:49)
[2018-04-14] MEDS: IMDUR PO SCH (09:49)
[2018-04-14] MEDS: COLCRYS TAB 0.6 MG PO SCH (09:49)
[2018-04-14] MEDS: ALDACTONE TAB 25 MG PO SCH (09:49)
[2018-04-14] MEDS: SINGULAIR TAB 10 MG PO SCH (09:50)
[2018-04-14] MEDS: ULTRAM PO SCH ×4 (09:50→21:48)
[2018-04-14] MEDS: PROSCAR PO SCH (09:50)
[2018-04-14] MEDS: HumuLIN R SUBCUT PRN ×2 (15:57→21:54)
[2018-04-14] MEDS ORDERED: SNACK - Diabetic Appropriate PO SCH (20:00)
[2018-04-14] MEDS: SNACK - Diabetic Appropriate PO SCH (21:03)
[2018-04-14] MEDS ORDERED: COLACE CAP 100 MG PO PRN (21:12)
[2018-04-14] MEDS ORDERED: MILK OF MAGNESIA PO PRN (21:12)
[2018-04-14] MEDS: COUMADIN TAB 5 MG PO SCH (21:49)
[2018-04-15 05:24] LABS: BASOPHILS # (AUTO) 0.1 X10^3/uL (0.0-0.1); BASOPHILS % (AUTO) 0.5 % (0.2-1.0); EOSINOPHILS % (AUTO) 0.2 % (0.9-2.9); HEMATOCRIT 32.1 % (42.0-54.0); HEMOGLOBIN 10.4 g/dL (13.5-18.0); LYMPHOCYTES # (AUTO) 0.7 X10^3/uL (1.3-2.9); LYMPHOCYTES % (AUTO) 5.2 % (21.0-51.0); MEAN CORPUSCULAR HEMOGLOBIN 29.2 pg (27.0-34.0); MEAN CORPUSCULAR HGB CONC 32.4 g/dL (33.0-35.0); MEAN CORPUSCULAR VOLUME 90.3 fL (80.0-100.0); MEAN PLATELET VOLUME 9.7 fL (7.4-11.0); MONOCYTES # (AUTO) 0.6 x10^3/uL (0.3-0.8); MONOCYTES % (AUTO) 4.9 % (0.0-13.0); NEUTROPHILS # (AUTO) 11.2 x10^3/uL (2.2-4.8); NEUTROPHILS % (AUTO) 89.2 % (42.0-75.0); PLATELET COUNT 192 X10^3/uL (150.0-450.0); RED BLOOD COUNT 3.56 X10^6/uL (4.7-6.0); RED CELL DISTRIBUTION WIDTH 16.5 % (11.6-16.5); WHITE BLOOD COUNT 12.5 X10^3/uL (3.6-10.0)
[2018-04-15 05:31] LABS: CALCIUM 8.1 mg/dL (8.5-10.1); CARBON DIOXIDE 19.6 mmol/L (21-32); CREATININE 2.29 mg/dL (0.70-1.30)
[2018-04-15] MEDS: ZOSYN VIAL 2.25 GRAMS 2.25 G in NS 100 ML IV + SPIKE MINIBAG* 100 ML IV SCH ×3 (06:24→21:00)
[2018-04-15] MEDS: HumuLIN R SUBCUT PRN ×2 (06:32→21:16)
[2018-04-15] MEDS: PULMICORT NEB TX 0.5 MG NEB SCH ×3 (07:37→20:53)
[2018-04-15] MEDS: SINGULAIR TAB 10 MG PO SCH (08:51)
[2018-04-15] MEDS: COLCRYS TAB 0.6 MG PO SCH (08:51)
[2018-04-15] MEDS: ALDACTONE TAB 25 MG PO SCH (08:51)
[2018-04-15] MEDS: PriLOSEC PO SCH (08:51)
[2018-04-15] MEDS: PROSCAR PO SCH (08:51)
[2018-04-15] MEDS: COREG TAB 3.125 MG PO SCH ×2 (08:52→20:59)
[2018-04-15] MEDS: ULTRAM PO SCH ×4 (08:52→21:00)
[2018-04-15] MEDS: IMDUR PO SCH (08:52)
[2018-04-15] MEDS: FERROUS GLUCONATE PO SCH (08:53)
[2018-04-15] MEDS: NS 1000 ML 1,000 ML IV SCH ×3 (08:59→21:58)
[2018-04-15 14:12] LABS: BASOPHILS # (AUTO) 0.1 X10^3/uL (0.0-0.1); BASOPHILS % (AUTO) 0.4 % (0.2-1.0); EOSINOPHILS # (AUTO) 0.3 x10^3/uL (0.0-0.2); EOSINOPHILS % (AUTO) 1.7 % (0.9-2.9); HEMATOCRIT 33.6 % (42.0-54.0); HEMOGLOBIN 11.1 g/dL (13.5-18.0); LYMPHOCYTES # (AUTO) 0.5 X10^3/uL (1.3-2.9); MEAN CORPUSCULAR HEMOGLOBIN 29.4 pg (27.0-34.0); MEAN CORPUSCULAR HGB CONC 33.2 g/dL (33.0-35.0); MEAN CORPUSCULAR VOLUME 88.5 fL (80.0-100.0); MEAN PLATELET VOLUME 8.5 fL (7.4-11.0); MONOCYTES # (AUTO) 0.7 x10^3/uL (0.3-0.8); MONOCYTES % (AUTO) 4.7 % (0.0-13.0); NEUTROPHILS % (AUTO) 90.2 % (42.0-75.0); PLATELET COUNT 212 X10^3/uL (150.0-450.0); RED BLOOD COUNT 3.79 X10^6/uL (4.7-6.0); RED CELL DISTRIBUTION WIDTH 16.1 % (11.6-16.5); WHITE BLOOD COUNT 15.5 X10^3/uL (3.6-10.0)
[2018-04-15 14:22] LABS: PLATELET MORPHOLOGY COMMENT NORMAL (NORMAL)
[2018-04-15 16:04] LABS: CARBON DIOXIDE 18.9 mmol/L (21-32); CREATININE 2.14 mg/dL (0.70-1.30)
[2018-04-15 16:05] LABS: CALCIUM 8.3 mg/dL (8.5-10.1)
[2018-04-15 16:06] LABS: ALBUMIN 2.4 g/dL (3.4-5.0); COR CA(FOR HYPOALB) 9.6 mg/dL (8.5-10.1); TOTAL PROTEIN 6.8 g/dL (6.4-8.2)
[2018-04-15] MEDS: PROVENTIL NEB TX 0.083% 2.5MG/ 3ML NEB PRN (16:10)
[2018-04-15] MEDS: SNACK - Diabetic Appropriate PO SCH (21:00)
[2018-04-15] MEDS: COUMADIN TAB 5 MG PO SCH (21:01)
[2018-04-16 04:59] LABS: CALCIUM 7.6 mg/dL (8.5-10.1); CARBON DIOXIDE 16.9 mmol/L (21-32); CREATININE 1.93 mg/dL (0.70-1.30)
[2018-04-16 05:16] LABS: BASOPHILS # (AUTO) 0.1 X10^3/uL (0.0-0.1); BASOPHILS % (AUTO) 1.1 % (0.2-1.0); EOSINOPHILS # (AUTO) 0.3 x10^3/uL (0.0-0.2); EOSINOPHILS % (AUTO) 3.8 % (0.9-2.9); HEMATOCRIT 30.9 % (42.0-54.0); HEMOGLOBIN 10.3 g/dL (13.5-18.0); LYMPHOCYTES # (AUTO) 0.9 X10^3/uL (1.3-2.9); MEAN CORPUSCULAR HEMOGLOBIN 29.7 pg (27.0-34.0); MEAN CORPUSCULAR HGB CONC 33.4 g/dL (33.0-35.0); MEAN CORPUSCULAR VOLUME 88.9 fL (80.0-100.0); MEAN PLATELET VOLUME 9.4 fL (7.4-11.0); MONOCYTES # (AUTO) 0.5 x10^3/uL (0.3-0.8); MONOCYTES % (AUTO) 6.2 % (0.0-13.0); NEUTROPHILS % (AUTO) 78.9 % (42.0-75.0); PLATELET COUNT 168 X10^3/uL (150.0-450.0); RED BLOOD COUNT 3.48 X10^6/uL (4.7-6.0); RED CELL DISTRIBUTION WIDTH 16.3 % (11.6-16.5); WHITE BLOOD COUNT 8.8 X10^3/uL (3.6-10.0)
[2018-04-16] MEDS: ZOSYN VIAL 2.25 GRAMS 2.25 G in NS 100 ML IV + SPIKE MINIBAG* 100 ML IV SCH ×3 (05:40→21:30)
[2018-04-16] MEDS: HumuLIN R SUBCUT PRN ×2 (05:51→19:00)
[2018-04-16] MEDS: FERROUS GLUCONATE PO SCH (08:20)
[2018-04-16] MEDS: SINGULAIR TAB 10 MG PO SCH (08:20)
[2018-04-16] MEDS: PROSCAR PO SCH (08:20)
[2018-04-16] MEDS: ALDACTONE TAB 25 MG PO SCH (08:20)
[2018-04-16] MEDS: COREG TAB 3.125 MG PO SCH ×2 (08:20→21:25)
[2018-04-16] MEDS: COLCRYS TAB 0.6 MG PO SCH (08:20)
[2018-04-16] MEDS: IMDUR PO SCH (08:20)
[2018-04-16] MEDS: PriLOSEC PO SCH (08:20)
[2018-04-16] MEDS: ULTRAM PO SCH ×4 (08:20→21:25)
[2018-04-16] MEDS: PULMICORT NEB TX 0.5 MG NEB SCH ×2 (08:41→20:06)
[2018-04-16] MEDS: NS 1000 ML 1,000 ML IV SCH ×2 (11:47→13:33)
[2018-04-16] MEDS: SNACK - Diabetic Appropriate PO SCH (20:20)
[2018-04-16] MEDS: COUMADIN TAB 5 MG PO SCH (21:26)
[2018-04-17] MEDS: NS 1000 ML 1,000 ML IV SCH (01:38)
[2018-04-17 05:18] LABS: BASOPHILS # (AUTO) 0.1 X10^3/uL (0.0-0.1); BASOPHILS % (AUTO) 0.8 % (0.2-1.0); EOSINOPHILS # (AUTO) 0.4 x10^3/uL (0.0-0.2); EOSINOPHILS % (AUTO) 4.6 % (0.9-2.9); HEMATOCRIT 30.5 % (42.0-54.0); HEMOGLOBIN 10.1 g/dL (13.5-18.0); LYMPHOCYTES # (AUTO) 0.7 X10^3/uL (1.3-2.9); LYMPHOCYTES % (AUTO) 8.7 % (21.0-51.0); MEAN CORPUSCULAR HEMOGLOBIN 29.8 pg (27.0-34.0); MEAN CORPUSCULAR HGB CONC 33.3 g/dL (33.0-35.0); MEAN CORPUSCULAR VOLUME 89.7 fL (80.0-100.0); MONOCYTES # (AUTO) 0.5 x10^3/uL (0.3-0.8); MONOCYTES % (AUTO) 6.1 % (0.0-13.0); NEUTROPHILS # (AUTO) 6.2 x10^3/uL (2.2-4.8); NEUTROPHILS % (AUTO) 79.8 % (42.0-75.0); PLATELET COUNT 205 X10^3/uL (150.0-450.0); RED CELL DISTRIBUTION WIDTH 16.4 % (11.6-16.5); WHITE BLOOD COUNT 7.7 X10^3/uL (3.6-10.0)
[2018-04-17 05:29] LABS: ALBUMIN 2.2 g/dL (3.4-5.0); CALCIUM 7.6 mg/dL (8.5-10.1); CARBON DIOXIDE 18.6 mmol/L (21-32); CREATININE 1.71 mg/dL (0.70-1.30); TOTAL PROTEIN 6.2 g/dL (6.4-8.2)
[2018-04-17 05:44] VITALS: BMI 31.0
[2018-04-17] MEDS: ZOSYN VIAL 2.25 GRAMS 2.25 G in NS 100 ML IV + SPIKE MINIBAG* 100 ML IV SCH (06:00)
[2018-04-17] MEDS: HumuLIN R SUBCUT PRN (06:12)
[2018-04-17] MEDS: COREG TAB 3.125 MG PO SCH (09:05)
[2018-04-17] MEDS: FERROUS GLUCONATE PO SCH (09:05)
[2018-04-17] MEDS: PriLOSEC PO SCH (09:05)
[2018-04-17] MEDS: COLCRYS TAB 0.6 MG PO SCH (09:05)
[2018-04-17] MEDS: PROSCAR PO SCH (09:05)
[2018-04-17] MEDS: IMDUR PO SCH (09:05)
[2018-04-17] MEDS: ALDACTONE TAB 25 MG PO SCH (09:05)
[2018-04-17] MEDS: ULTRAM PO SCH ×2 (09:06→13:33)
[2018-04-17] MEDS: SINGULAIR TAB 10 MG PO SCH (09:07)
[2018-04-17] MEDS: PULMICORT NEB TX 0.5 MG NEB SCH (09:19)
--- NOTE | 2018-04-17 09:37 | RAD ---
History: Weakness edema shortness of breath Technique: AP chest Comparison: 04/11/2018 Findings: Status post median sternotomy. There is a single lead AICD present. There is moderate enlargement of the cardiac silhouette with venous congestive changes. There is a small amount of fluid in the minor fissure and a trace right pleural effusion noted. Mild prominence of the perihilar interstitium suggested. No focal airspace opacities noted Impression: 1. Enlargement of the cardiac silhouette with venous congestive changes and mild prominence of the perihilar interstitium suggesting venous congestion and perhaps mild interstitial pulmonary edema 2. Trace right pleural effusion and small amount of fluid in the minor fissure. Reported By:
[2018-04-17] MEDS ORDERED: CONSULT PHARMACY - ANTIBIOTIC XX SCH (13:00)
[2018-04-17] MEDS ORDERED: INVANZ INJ 1 GM VIAL 1 GM in NS 100 ML IV + SPIKE MINIBAG* 100 ML IV SCH (14:00)
[2018-04-17 15:34] VITALS: BP 148/75
--- NOTE | 2018-05-19 11:36 | PCM.PROG ---
Progress Note - Progress Note for Day of Date of Exam: 04/16/18 - Subjective Subjective: The patient is a 77-year-old white male who is a primary care patient of Dr. Kerr who was admitted to [facility] on April 12, 2018 secondary to extensive cellulitis involving the left upper extremity and probable acute gouty arthritis involving the right knee and left elbow which has markedly improved. The patient also has acute on chronic renal failure with continued slow improvement in this renal function. Denies complaints at present. - Past Medical Family Social History Past Med/Fam/Surg Hx: No changes since H&P Allergies: Allergies acetaminophen Allergy (Verified 04/11/18 18:00) azithromycin Allergy (Verified 04/11/18 18:00) clindamycin Allergy (Verified 04/11/18 18:00) hydroxyzine [From Atarax] Allergy (Verified 04/11/18 18:00) oxycodone Allergy (Verified 04/11/18 18:00) pseudoephedrine Allergy (Verified 04/11/18 18:00) ramipril Allergy (Verified 04/11/18 18:00) rosiglitazone Allergy (Verified 04/11/18 18:00) VISTARIL Adverse Reaction (Uncoded 11/05/16 15:46) - Review of Systems ROS: No change since H&P - Vital Signs and I&O's Vital Signs: Temperature 98.2 F Pulse Rate [Right Brachial] 60 Pulse Rate 72 Respiratory Rate 18 Blood Pressure [Left Arm] 155/65 Blood Pressure [Right Arm] 148/75 Blood Pressure 155/70 O2 Sat by Pulse Oximetry 97 - Physical Exam Oriented: Normal Eyes: Normal Ear: Normal Nose: Normal Throat: Normal Respiratory: Normal Cardiovascular: Normal : Normal Auscultation: Bowel Sounds: Normal Palpation: Normal Tenderness: Normal Skin: Red, Tender, Other Musculoskeletal: Right, Left, Arm, Knee Mood Description: Calm Affect: Normal Speech Pattern: Clear, Appropriate - Laboratory and Diagnostics Result Diagrams: 04/17/18 04:30 04/17/18 04:30 Labs: 04/11/18 19:25 Urine,Clean Catch Urine Culture - Final Klebsiella Pneumoniae Laboratory WBC 7.7 X10^3/uL (3.6-10.0) 04/17/18 04:30 RBC 3.40 X10^6/uL (4.7-6.0) L 04/17/18 04:30 Hgb 10.1 g/dL (13.5-18.0) L 04/17/18 04:30 Hct 30.5 % (42.0-54.0) L 04/17/18 04:30 MCV 89.7 fL (80.0-100.0) 04/17/18 04:30 MCH 29.8 pg (27.0-34.0) 04/17/18 04:30 MCHC 33.3 g/dL (33.0-35.0) 04/17/18 04:30 RDW 16.4 % (11.6-16.5) 04/17/18 04:30 Plt Count 205 X10^3/uL (150.0-450.0) 04/17/18 04:30 Plt Count Comment Adequate (ADEQUATE) 04/15/18 14:02 MPV 9.0 fL (7.4-11.0) 04/17/18 04:30 Neut % (Auto) 79.8 % (42.0-75.0) H 04/17/18 04:30 Lymph % (Auto) 8.7 % (21.0-51.0) L 04/17/18 04:30 [place] % (Auto) 6.1 % (0.0-13.0) 04/17/18 04:30 Eos % (Auto) 4.6 % (0.9-2.9) H 04/17/18 04:30 Baso % (Auto) 0.8 % (0.2-1.0) 04/17/18 04:30 Neut # (Auto) 6.2 x10^3/uL (2.2-4.8) H 04/17/18 04:30 Lymph # (Auto) 0.7 X10^3/uL (1.3-2.9) L 04/17/18 04:30 [place] # (Auto) 0.5 x10^3/uL (0.3-0.8) 04/17/18 04:30 Eos # (Auto) 0.4 x10^3/uL (0.0-0.2) H 04/17/18 04:30 Baso # (Auto) 0.1 X10^3/uL (0.0-0.1) 04/17/18 04:30 Absolute Nucleated RBC 0.0 /100WBC 04/17/18 04:30 Total Counted 100 04/15/18 14:02 Neutrophils % (Manual) 84 % (39-76) H 04/15/18 14:02 Lymphocytes % (Manual) 6 % (13-43) L 04/15/18 14:02 Monocytes % (Manual) 5 % (4-9) 04/15/18 14:02 Eosinophils % (Manual) 5 % (0-6) 04/15/18 14:02 Plt Morphology Comment Normal (NORMAL) 04/15/18 14:02 RBC Morphology Normal (NORMAL) 04/15/18 14:02 ESR 60 MM/HOUR (0-15) H 04/11/18 17:31 INR Target Range - 04/17/18 04:30 INR 2.66 (0.8-1.3) H 04/17/18 04:30 Sodium 141 mmol/L (136-145) 04/17/18 04:30 Corrected Sodium 143 mmol/L (136-145) 04/17/18 04:30 Potassium 4.1 mmol/L (3.5-5.1) 04/17/18 04:30 Chloride 109 mmol/L (98-107) H 04/17/18 04:30 Carbon Dioxide 18.6 mmol/L (21-32) L 04/17/18 04:30 BUN 53 mg/dL (7-18) H 04/17/18 04:30 Creatinine 1.71 mg/dL (0.70-1.30) H 04/17/18 04:30 Est GFR (MDRD) Af Amer 50 (>60) L 04/17/18 04:30 Est GFR (MDRD) Non-Af 42 (>60) L 04/17/18 04:30 Glucose 200 mg/dL (65-99) H 04/17/18 04:30 POC Glucose (mg/dL) 169 mg/dL (65-99) H 04/17/18 10:51 Uric Acid 8.7 mg/dL (3.5-7.2) H 04/14/18 04:50 Calcium 7.6 mg/dL (8.5-10.1) L 04/17/18 04:30 Corrected Calcium 9.0 mg/dL (8.5-10.1) 04/17/18 04:30 Total Bilirubin 0.50 mg/dL (0.2-1.0) 04/17/18 04:30 AST 14 Units/L (15-37) L 04/17/18 04:30 ALT 19 Units/L (12-78) 04/17/18 04:30 Alkaline Phosphatase 144 Units/L (46-116) H 04/17/18 04:30 C-Reactive Protein 162.70 mg/L (0-3.0) H 04/12/18 04:45 Total Protein 6.2 g/dL (6.4-8.2) L 04/17/18 04:30 Albumin 2.2 g/dL (3.4-5.0) L 04/17/18 04:30 Globulin 4.0 g/dL (2.5-4.5) 04/17/18 04:30 Albumin/Globulin Ratio 0.6 Ratio (1.1-2.1) L 04/17/18 04:30 Specimen Type Clean catch urine 04/11/18 19:25 Urine Color [place] (YELLOW) 04/11/18 19:25 Urine Appearance Hazy (CLEAR) 04/11/18 19:25 Urine pH 5.0 (5.0 - 8.0) 04/11/18 19:25 Ur Specific [place] 1.020 (1.000-1.030) 04/11/18 19:25 Urine Protein 2+ (NEGATIVE) 04/11/18 19:25 Urine Glucose (UA) Negative (NEGATIVE) 04/11/18 19: Urine Ketones Negative (NEGATIVE) 04/11/18 19: Urine Occult Blood 2+ (NEGATIVE) 04/11/18 19:25 Urine Nitrite Negative (NEGATIVE) 04/11/18 19:25 Urine Bilirubin Negative (NEGATIVE) 04/11/18 19:25 Urine Urobilinogen 1+ (NORMAL) 04/11/18 19:25 Ur Leukocyte Esterase 3+ (NEGATIVE) 04/11/18 19:25 Urine RBC Tntc /HPF (NONE SEEN) 04/11/18 19:25 Urine WBC Tntc /HPF (NONE SEEN) 04/11/18 19:25 Ur Squamous Epith Cells Moderate /HPF (NEGATIVE) 04/11/18 19:25 Urine Bacteria 2+ /HPF (NEGATIVE) 04/11/18 19:25 Ur Culture Indicated? Yes/culture set up 04/11/18 19:25 - Plan (1) Cellulitis of arm, left Status: Acute Plan: Continue IV antibiotics. (2) Gouty arthritis Status: Acute Plan: pain mgmt as needed (3) Diabetes mellitus, type 2 Status: Chronic (4) Essential hypertension Status: Chronic
--- NOTE | 2018-05-25 14:43 | PCM.PROG ---
Progress Note - Progress Note for Day of Date of Exam: 04/12/18 - Subjective Subjective: WAS ADMITTED FOR HYPOTENSION, GENERALIZED WEAKNESS, GOUT FLARE, AND UPPER EXTREMITY CELLULITIS. TODAY, HE IS ALERT AND ORIENTED, SITTING UP IN BED ON MORNING ROUNDS. HE CONTINUES WITH COMPLAINTS OF GENERALIZED WEAKNESS AND GENERALIZED PAIN. HE CONTINUES WITH REDNESS AND SWELLING TO THE LEFT UPPER EXTREMITY. HE IS ALSO NOTED WITH BILATERAL LOWER EXTREMITY PAIN AND SWELLING. HIS VITALS THIS MORNING ARE 98.3-72-20-92%RA-123/58. LABS WERE OBTAINED. ABNORMAL LAB VALUES INCLUDE THE FOLLOWING: WBC 11.6, RBC 3.30, HGB 9.7, HCT 29.3, BUN 58, CREATININE 2.41, CALCIUM 7.5, ALK PHOS 155, CRP 162.70, ALBUMIN 2.3. URINALYSIS REVALED: WBC TNTC, RBC TNTC, BACTERIA 2+, LEUKOCYTES 2+. URINE CULTURE IS PENDING. TODAY, WE WILL OBTAIN A LEFT UPPER ARM VENOUS DOPPLER. WE WILL START TRAMADOL 50MG PO QID, COREG 3.125MG PO BID, AND ALDACTONE 25MG PO DAILY. OTHERWISE, WE WILL CONTINUE WITH IV ANTIBIOITCS AND CURRENT PLAN OF CARE. WE WILL FOLLOW UP WITH AM LABS AND CONTINUE TO MONITOR. - Past Medical Family Social History Past Med/Fam/Surg Hx: No changes since H&P Allergies: Allergies acetaminophen Allergy (Verified 04/11/18 18:00) azithromycin Allergy (Verified 04/11/18 18:00) clindamycin Allergy (Verified 04/11/18 18:00) hydroxyzine [From Atarax] Allergy (Verified 04/11/18 18:00) oxycodone Allergy (Verified 04/11/18 18:00) pseudoephedrine Allergy (Verified 04/11/18 18:00) ramipril Allergy (Verified 04/11/18 18:00) rosiglitazone Allergy (Verified 04/11/18 18:00) VISTARIL Adverse Reaction (Uncoded 11/05/16 15:46) - Review of Systems ROS: No change since H&P - Vital Signs and I&O's Vital Signs: Temperature 98.2 F Pulse Rate [Right Brachial] 60 Pulse Rate 72 Respiratory Rate 18 Blood Pressure [Left Arm] 155/65 Blood Pressure [Right Arm] 148/75 Blood Pressure 155/70 O2 Sat by Pulse Oximetry 97 - Physical Exam Oriented: Normal Eyes: Normal Ear: Normal Nose: Normal Throat: Normal Respiratory: Normal Cardiovascular: Normal : Normal Auscultation: Bowel Sounds: Normal Palpation: Normal Tenderness: Normal Skin: Red, Tender, Other Musculoskeletal: Right, Left, Arm, Knee Mood Description: Calm Affect: Normal Speech Pattern: Clear, Appropriate - Laboratory and Diagnostics Result Diagrams: 04/17/18 04:30 04/17/18 04:30 Labs: 04/11/18 19:25 Urine,Clean Catch Urine Culture - Final Klebsiella Pneumoniae Laboratory WBC 7.7 X10^3/uL (3.6-10.0) 04/17/18 04:30 RBC 3.40 X10^6/uL (4.7-6.0) L 04/17/18 04:30 Hgb 10.1 g/dL (13.5-18.0) L 04/17/18 04:30 Hct 30.5 % (42.0-54.0) L 04/17/18 04:30 MCV 89.7 fL (80.0-100.0) 04/17/18 04:30 MCH 29.8 pg (27.0-34.0) 04/17/18 04:30 MCHC 33.3 g/dL (33.0-35.0) 04/17/18 04:30 RDW 16.4 % (11.6-16.5) 04/17/18 04:30 Plt Count 205 X10^3/uL (150.0-450.0) 04/17/18 04:30 Plt Count Comment Adequate (ADEQUATE) 04/15/18 14:02 MPV 9.0 fL (7.4-11.0) 04/17/18 04:30 Neut % (Auto) 79.8 % (42.0-75.0) H 04/17/18 04:30 Lymph % (Auto) 8.7 % (21.0-51.0) L 04/17/18 04:30 [place] % (Auto) 6.1 % (0.0-13.0) 04/17/18 04:30 Eos % (Auto) 4.6 % (0.9-2.9) H 04/17/18 04:30 Baso % (Auto) 0.8 % (0.2-1.0) 04/17/18 04:30 Neut # (Auto) 6.2 x10^3/uL (2.2-4.8) H 04/17/18 04:30 Lymph # (Auto) 0.7 X10^3/uL (1.3-2.9) L 04/17/18 04:30 [place] # (Auto) 0.5 x10^3/uL (0.3-0.8) 04/17/18 04:30 Eos # (Auto) 0.4 x10^3/uL (0.0-0.2) H 04/17/18 04:30 Baso # (Auto) 0.1 X10^3/uL (0.0-0.1) 04/17/18 04:30 Absolute Nucleated RBC 0.0 /100WBC 04/17/18 04:30 Total Counted 100 04/15/18 14:02 Neutrophils % (Manual) 84 % (39-76) H 04/15/18 14:02 Lymphocytes % (Manual) 6 % (13-43) L 04/15/18 14:02 Monocytes % (Manual) 5 % (4-9) 04/15/18 14:02 Eosinophils % (Manual) 5 % (0-6) 04/15/18 14:02 Plt Morphology Comment Normal (NORMAL) 04/15/18 14:02 RBC Morphology Normal (NORMAL) 04/15/18 14:02 ESR 60 MM/HOUR (0-15) H 04/11/18 17:31 INR Target Range - 04/17/18 04:30 INR 2.66 (0.8-1.3) H 04/17/18 04:30 Sodium 141 mmol/L (136-145) 04/17/18 04:30 Corrected Sodium 143 mmol/L (136-145) 04/17/18 04:30 Potassium 4.1 mmol/L (3.5-5.1) 04/17/18 04:30 Chloride 109 mmol/L (98-107) H 04/17/18 04:30 Carbon Dioxide 18.6 mmol/L (21-32) L 04/17/18 04:30 BUN 53 mg/dL (7-18) H 04/17/18 04:30 Creatinine 1.71 mg/dL (0.70-1.30) H 04/17/18 04:30 Est GFR (MDRD) Af Amer 50 (>60) L 04/17/18 04:30 Est GFR (MDRD) Non-Af 42 (>60) L 04/17/18 04:30 Glucose 200 mg/dL (65-99) H 04/17/18 04:30 POC Glucose (mg/dL) 169 mg/dL (65-99) H 04/17/18 10:51 Uric Acid 8.7 mg/dL (3.5-7.2) H 04/14/18 04:50 Calcium 7.6 mg/dL (8.5-10.1) L 04/17/18 04:30 Corrected Calcium 9.0 mg/dL (8.5-10.1) 04/17/18 04:30 Total Bilirubin 0.50 mg/dL (0.2-1.0) 04/17/18 04:30 AST 14 Units/L (15-37) L 04/17/18 04:30 ALT 19 Units/L (12-78) 04/17/18 04:30 Alkaline Phosphatase 144 Units/L (46-116) H 04/17/18 04:30 C-Reactive Protein 162.70 mg/L (0-3.0) H 04/12/18 04:45 Total Protein 6.2 g/dL (6.4-8.2) L 04/17/18 04:30 Albumin 2.2 g/dL (3.4-5.0) L 04/17/18 04:30 Globulin 4.0 g/dL (2.5-4.5) 04/17/18 04:30 Albumin/Globulin Ratio 0.6 Ratio (1.1-2.1) L 04/17/18 04:30 Specimen Type Clean catch urine 04/11/18 19:25 Urine Color [place] (YELLOW) 04/11/18: Urine Appearance Hazy (CLEAR) 04/11/18: Urine pH 5.0 (5.0 - 8.0) 04/11/18 19: Ur Specific [place] 1.020 (1.000-1.030) 04/11/18 19:25 Urine Protein 2+ (NEGATIVE) 04/11/18: Urine Glucose (UA) Negative (NEGATIVE) 04/11/18 19:25 Urine Ketones Negative (NEGATIVE) 04/11/18 19:25 Urine Occult Blood 2+ (NEGATIVE) 04/11/18 19:25 Urine Nitrite Negative (NEGATIVE) 04/11/18 19:25 Urine Bilirubin Negative (NEGATIVE) 04/11/18 19:25 Urine Urobilinogen 1+ (NORMAL) 04/11/18 19:25 Ur Leukocyte Esterase 3+ (NEGATIVE) 04/11/18 19:25 Urine RBC Tntc /HPF (NONE SEEN) 04/11/18 19:25 Urine WBC Tntc /HPF (NONE SEEN) 04/11/18 19:25 Ur Squamous Epith Cells Moderate /HPF (NEGATIVE) 04/11/18 19:25 Urine Bacteria 2+ /HPF (NEGATIVE) 04/11/18 19:25 Ur Culture Indicated? Yes/culture set up 04/11/18 19:25 - Plan (1) Cellulitis of arm, left Status: Acute Plan: Continue IV antibiotics. (2) Urinary tract infection Status: Acute Qualifiers: Urinary tract infection type: acute cystitis Hematuria presence: with hematuria Qualified Code(s): N30.01 - Acute cystitis with hematuria Plan: CONTINUE IV ANTIBIOITCS (3) Acute renal failure Status: Acute (4) Gouty arthritis Status: Acute Plan: pain mgmt as needed (5) CHF (congestive heart failure) Status: Chronic (6) COPD (chronic obstructive pulmonary disease) Status: Chronic Qualifiers: COPD type: chronic bronchitis (7) Diabetes mellitus, type 2 Status: Chronic (8) Essential hypertension Status: Chronic
== END 2018-04-17 15:55 | disposition home or self-care (01) | DRG 603 ==
LOC: MED/SURG
PROVIDERS: ADMIT Internal Medicine; ATTEND Internal Medicine
DX: L03.114 Cellulitis of left upper limb; K74.60 Unspecified cirrhosis of liver; I95.89 Other hypotension; R79.82 Elevated C-reactive protein (CRP); R26.89 Other abnormalities of gait and mobility; B96.1 Klebsiella pneumoniae [K. pneumoniae] as the cause of diseases classified elsewhere; R60.0 Localized edema; M10.022 Idiopathic gout, left elbow; J44.9 Chronic obstructive pulmonary disease, unspecified; E87.2 Acidosis; N17.8 Other acute kidney failure; E11.65 Type 2 diabetes mellitus with hyperglycemia; N39.0 Urinary tract infection, site not specified; M10.061 Idiopathic gout, right knee; R79.1 Abnormal coagulation profile; N18.2 Chronic kidney disease, stage 2 (mild)
CPT/HCPCS: 36415; 71010; 71045; 80048; 80053; 81001; 84550; 85025; 85610; 85652; 86140; 87086; 87088; 87186; 93971; 94640; 94760; 97110; 97165; 99231; A4222; S0138; G0378; J1335; J1815; J2543; J2930; J7030; J7050; J7613; J7626

== ENCOUNTER 2018-07-07 11:14 | Inpatient (IN) ==
[2018-07-07] MEDS ORDERED: PHARMACY CONSULT - DOSE _____ XX SCH ×2 (13:00→17:00)
[2018-07-07] MEDS ORDERED: NS 1000 ML 1,000 ML IV SCH (13:10)
[2018-07-07 14:00] LABS: BASOPHILS # (AUTO) 0.1 X10^3/uL (0.0-0.1); BASOPHILS % (AUTO) 1.1 % (0.2-1.0); EOSINOPHILS # (AUTO) 0.3 x10^3/uL (0.0-0.2); EOSINOPHILS % (AUTO) 2.8 % (0.9-2.9); HEMATOCRIT 36.1 % (42.0-54.0); HEMOGLOBIN 11.5 g/dL (13.5-18.0); LYMPHOCYTES # (AUTO) 0.9 X10^3/uL (1.3-2.9); LYMPHOCYTES % (AUTO) 8.8 % (21.0-51.0); MEAN CORPUSCULAR HEMOGLOBIN 29.8 pg (27.0-34.0); MEAN CORPUSCULAR HGB CONC 31.9 g/dL (33.0-35.0); MEAN CORPUSCULAR VOLUME 93.4 fL (80.0-100.0); MEAN PLATELET VOLUME 9.3 fL (7.4-11.0); MONOCYTES % (AUTO) 9.7 % (0.0-13.0); NEUTROPHILS # (AUTO) 7.9 x10^3/uL (2.2-4.8); NEUTROPHILS % (AUTO) 77.6 % (42.0-75.0); PLATELET COUNT 225 X10^3/uL (150.0-450.0); RED BLOOD COUNT 3.87 X10^6/uL (4.7-6.0); RED CELL DISTRIBUTION WIDTH 17.7 % (11.6-16.5); WHITE BLOOD COUNT 10.2 X10^3/uL (3.6-10.0)
[2018-07-07 14:03] LABS: AMMONIA 20 umol/L (11-32)
[2018-07-07 14:08] LABS: ALANINE AMINOTRANSFERASE 27 Units/L (12-78); ALBUMIN 3.1 g/dL (3.4-5.0); ALKALINE PHOSPHATASE 195 Units/L (46-116); ASPARTATE AMINO TRANSFERASE 20 Units/L (15-37); BLOOD UREA NITROGEN 55 mg/dL (7-18); CARBON DIOXIDE 17.2 mmol/L (21-32); CHLORIDE 110 mmol/L (98-107); CKMB % 3.3 % (<4); COR CA(FOR HYPOALB) 9.7 mg/dL (8.5-10.1); COR NA(FOR HYPERGLY) 137 mmol/L (136-145); CREATINE KINASE 58 Units/L (39-308); CREATINE KINASE MB 1.9 ng/mL (0-4.0); CREATININE 1.93 mg/dL (0.70-1.30); SODIUM 136 mmol/L (136-145); TOTAL PROTEIN 7.6 g/dL (6.4-8.2); TROPONIN I < 0.02 ng/mL (0-1.5); eGFR NON BLACK RACES 36 (>60)
[2018-07-07] MEDS: LASIX IVP SCH ×2 (14:44→20:15)
[2018-07-07 15:55] LABS: BILIRUBIN,URINE NEGATIVE (NEGATIVE); BLOOD/HEMOGLOBIN,URINE NEGATIVE (NEGATIVE); GLUCOSE, URINE NEGATIVE (NEGATIVE); KETONES,URINE NEGATIVE (NEGATIVE); LEUKOCYTE ESTERASE ,URINE NEGATIVE (NEGATIVE); NITRITES,URINE NEGATIVE (NEGATIVE); PROTEIN,URINE NEGATIVE (NEGATIVE); UROBILINOGEN,URINE NORMAL (NORMAL)
[2018-07-07 15:58] LABS: APPEARANCE,URINE CLEAR (CLEAR); COLOR,URINE YELLOW (YELLOW)
[2018-07-07 16:07] VITALS: BMI 31.7
[2018-07-07] MEDS ORDERED: NS 1000 ML 1,000 ML IV ONE (16:26)
[2018-07-07] MEDS: PEPCID 20 MG IV PREMIX* 20 MG/50 ML BAG IV SCH (17:47)
[2018-07-07 19:34] LABS: CKMB % 3.1 % (<4); CREATINE KINASE 62 Units/L (39-308); CREATINE KINASE MB 1.9 ng/mL (0-4.0); TROPONIN I < 0.02 ng/mL (0-1.5)
[2018-07-07] MEDS: SNACK - Diabetic Appropriate PO SCH (20:15)
[2018-07-07] MEDS: COREG TAB 12.5 MG PO SCH (20:15)
[2018-07-07] MEDS: PROTONIX INJ 40 MG VIAL IVP SCH (20:15)
[2018-07-07] MEDS: SINGULAIR TAB 10 MG PO SCH (20:16)
[2018-07-07] MEDS: PROVENTIL NEB TX 0.083% 2.5MG/ 3ML NEB SCH (20:38)
[2018-07-07] MEDS: PULMICORT NEB TX 0.5 MG NEB SCH (20:38)
[2018-07-08 02:31] LABS: CKMB % 2.4 % (<4); CREATINE KINASE MB 1.3 ng/mL (0-4.0); TROPONIN I 0.03 ng/mL (0-1.5)
[2018-07-08] MEDS: NS 1000 ML 1,000 ML IV SCH (03:00)
[2018-07-08 05:58] LABS: BASOPHILS # (AUTO) 0.1 X10^3/uL (0.0-0.1); EOSINOPHILS # (AUTO) 0.4 x10^3/uL (0.0-0.2); HEMATOCRIT 33.5 % (42.0-54.0); HEMOGLOBIN 10.8 g/dL (13.5-18.0); LYMPHOCYTES % (AUTO) 9.7 % (21.0-51.0); MEAN CORPUSCULAR HEMOGLOBIN 29.7 pg (27.0-34.0); MEAN CORPUSCULAR HGB CONC 32.4 g/dL (33.0-35.0); MEAN CORPUSCULAR VOLUME 91.9 fL (80.0-100.0); MEAN PLATELET VOLUME 9.4 fL (7.4-11.0); MONOCYTES # (AUTO) 0.9 x10^3/uL (0.3-0.8); MONOCYTES % (AUTO) 9.5 % (0.0-13.0); NEUTROPHILS # (AUTO) 7.5 x10^3/uL (2.2-4.8); NEUTROPHILS % (AUTO) 75.8 % (42.0-75.0); PLATELET COUNT 217 X10^3/uL (150.0-450.0); RED BLOOD COUNT 3.64 X10^6/uL (4.7-6.0); RED CELL DISTRIBUTION WIDTH 17.5 % (11.6-16.5); WHITE BLOOD COUNT 9.9 X10^3/uL (3.6-10.0)
[2018-07-08 06:08] LABS: ALANINE AMINOTRANSFERASE 24 Units/L (12-78); ALBUMIN 2.9 g/dL (3.4-5.0); ALKALINE PHOSPHATASE 178 Units/L (46-116); ASPARTATE AMINO TRANSFERASE 19 Units/L (15-37); BLOOD UREA NITROGEN 51 mg/dL (7-18); CALCIUM 8.5 mg/dL (8.5-10.1); CARBON DIOXIDE 16.5 mmol/L (21-32); CHLORIDE 110 mmol/L (98-107); COR CA(FOR HYPOALB) 9.4 mg/dL (8.5-10.1); SODIUM 137 mmol/L (136-145); TOTAL PROTEIN 7.2 g/dL (6.4-8.2); eGFR NON BLACK RACES 39 (>60)
--- NOTE | 2018-07-08 06:46 | RAD ---
Examination: Portable AP chest History: Hyperkalemia Comparison 04/17/2018 Findings: Continued cardiomegaly with stable position of pacing device. There is a diffuse bilateral interstitial pulmonary prominence which has increased. No focal consolidation, pneumothorax or large pleural effusion. Impression: Stable cardiomegaly with postoperative changes. Increasing interstitial pulmonary process suggestive of perivascular edema. Reported By:
[2018-07-08] MEDS: PULMICORT NEB TX 0.5 MG NEB SCH ×2 (08:18→21:02)
[2018-07-08] MEDS: PROVENTIL NEB TX 0.083% 2.5MG/ 3ML NEB SCH ×2 (08:19→21:02)
[2018-07-08] MEDS: COREG TAB 12.5 MG PO SCH ×2 (09:51→20:37)
[2018-07-08] MEDS: PEPCID 20 MG IV PREMIX* 20 MG/50 ML BAG IV SCH (09:51)
[2018-07-08] MEDS: PROTONIX INJ 40 MG VIAL IVP SCH ×2 (09:51→20:36)
[2018-07-08] MEDS: HEMOCYTE-PLUS PO SCH (09:51)
[2018-07-08] MEDS: LANTUS SC SCH (10:04)
[2018-07-08] MEDS ORDERED: KAYEXALATE SUSP PO ONE ×3 (10:10→21:17)
[2018-07-08] MEDS ORDERED: PATIENT'S HOME MEDICATION (Budesonide-Formoterol 2 PUFF) IN SCH (10:30)
[2018-07-08] MEDS ORDERED: PriLOSEC PO SCH (11:00)
[2018-07-08] MEDS ORDERED: COREG TAB 12.5 MG PO SCH (11:00)
[2018-07-08] MEDS ORDERED: SINGULAIR TAB 10 MG PO SCH (11:00)
[2018-07-08] MEDS: IMDUR PO SCH (12:10)
[2018-07-08] MEDS: PROSCAR PO SCH (12:11)
[2018-07-08] MEDS: AMOXIL CAP 500 MG PO SCH ×4 (12:11→21:16)
[2018-07-08] MEDS: LASIX IVP SCH ×3 (12:12→21:16)
[2018-07-08] MEDS: COUMADIN TAB 5 MG PO SCH (12:13)
[2018-07-08] MEDS: FLONASE NASAL SPRAY ENOSTRIL SCH ×2 (14:42→20:40)
[2018-07-08 15:54] LABS: CALCIUM 8.6 mg/dL (8.5-10.1); CARBON DIOXIDE 18.6 mmol/L (21-32); CREATININE 1.8 mg/dL (0.70-1.30)
[2018-07-08] MEDS ORDERED: SNACK - Diabetic Appropriate PO SCH (20:00)
[2018-07-08] MEDS: SINGULAIR TAB 10 MG PO SCH (20:37)
[2018-07-08] MEDS: SNACK - Diabetic Appropriate PO SCH (20:38)
[2018-07-08] MEDS ORDERED: LANTUS SC SCH (21:00)
[2018-07-09 02:33] LABS: BASOPHILS # (AUTO) 0.1 X10^3/uL (0.0-0.1); BASOPHILS % (AUTO) 1.1 % (0.2-1.0); EOSINOPHILS # (AUTO) 0.4 x10^3/uL (0.0-0.2); EOSINOPHILS % (AUTO) 4.5 % (0.9-2.9); HEMATOCRIT 31.4 % (42.0-54.0); HEMOGLOBIN 10.2 g/dL (13.5-18.0); LYMPHOCYTES # (AUTO) 1.1 X10^3/uL (1.3-2.9); LYMPHOCYTES % (AUTO) 11.6 % (21.0-51.0); MEAN CORPUSCULAR HEMOGLOBIN 29.6 pg (27.0-34.0); MEAN CORPUSCULAR HGB CONC 32.5 g/dL (33.0-35.0); MEAN PLATELET VOLUME 9.1 fL (7.4-11.0); MONOCYTES % (AUTO) 11.1 % (0.0-13.0); NEUTROPHILS # (AUTO) 6.8 x10^3/uL (2.2-4.8); NEUTROPHILS % (AUTO) 71.7 % (42.0-75.0); PLATELET COUNT 198 X10^3/uL (150.0-450.0); RED BLOOD COUNT 3.45 X10^6/uL (4.7-6.0); RED CELL DISTRIBUTION WIDTH 17.6 % (11.6-16.5); WHITE BLOOD COUNT 9.4 X10^3/uL (3.6-10.0)
[2018-07-09 02:41] LABS: ALBUMIN 2.7 g/dL (3.4-5.0); CARBON DIOXIDE 16.9 mmol/L (21-32); CREATININE 1.79 mg/dL (0.70-1.30); TOTAL PROTEIN 6.9 g/dL (6.4-8.2)
[2018-07-09] MEDS: LASIX IVP SCH ×3 (05:01→21:12)
[2018-07-09] MEDS: AMOXIL CAP 500 MG PO SCH (05:01)
[2018-07-09] MEDS: PULMICORT NEB TX 0.5 MG NEB SCH ×2 (08:12→20:35)
[2018-07-09] MEDS: PROVENTIL NEB TX 0.083% 2.5MG/ 3ML NEB SCH ×2 (08:12→20:35)
[2018-07-09] MEDS: HEMOCYTE-PLUS PO SCH (08:59)
[2018-07-09] MEDS: COREG TAB 12.5 MG PO SCH ×2 (08:59→21:13)
[2018-07-09] MEDS: FLONASE NASAL SPRAY ENOSTRIL SCH ×2 (08:59→21:14)
[2018-07-09] MEDS: PEPCID 20 MG IV PREMIX* 20 MG/50 ML BAG IV SCH (09:00)
[2018-07-09] MEDS: COUMADIN TAB 5 MG PO SCH (09:00)
[2018-07-09] MEDS: PROSCAR PO SCH (09:00)
[2018-07-09] MEDS: PROTONIX INJ 40 MG VIAL IVP SCH ×2 (09:00→21:12)
[2018-07-09] MEDS: LANTUS SC SCH ×2 (09:01→09:45)
[2018-07-09] MEDS: IMDUR PO SCH (09:03)
[2018-07-09] MEDS ORDERED: PATIENT'S HOME MEDICATION (Budesonide-Formoterol 2 INH) IN SCH (11:45)
[2018-07-09] MEDS ORDERED: SINGULAIR TAB 10 MG PO SCH (12:00)
[2018-07-09] MEDS ORDERED: PriLOSEC PO SCH (12:00)
[2018-07-09] MEDS ORDERED: PROSCAR PO SCH (12:00)
[2018-07-09] MEDS: COZAAR PO SCH (12:21)
[2018-07-09] MEDS ORDERED: MERREM VIAL IVP SCH (14:00)
[2018-07-09] MEDS ORDERED: MERREM VIAL ONE ×2 (15:21→21:28)
[2018-07-09] MEDS ORDERED: NS 100 ML IV 100 ML IV ONE (15:21)
[2018-07-09] MEDS: MERREM PREMIX IV 500 MG 500 MG/50 ML BAG IV SCH ×2 (16:00→21:58)
[2018-07-09] MEDS: ULTRAM PO PRN (19:40)
[2018-07-09] MEDS: NS 1000 ML 1,000 ML IV SCH (19:41)
[2018-07-09 19:46] LABS: BILIRUBIN,URINE NEGATIVE (NEGATIVE); BLOOD/HEMOGLOBIN,URINE 3+ (NEGATIVE); GLUCOSE, URINE NEGATIVE (NEGATIVE); KETONES,URINE NEGATIVE (NEGATIVE); LEUKOCYTE ESTERASE ,URINE 3+ (NEGATIVE); NITRITES,URINE NEGATIVE (NEGATIVE); PROTEIN,URINE 2+ (NEGATIVE); UROBILINOGEN,URINE NORMAL (NORMAL)
[2018-07-09 19:55] LABS: APPEARANCE,URINE CLOUDY (CLEAR); COLOR,URINE YELLOW (YELLOW)
[2018-07-09 20:09] LABS: AMORPHOUS SEDIMENT,UR TRACE /HPF (NEGATIVE); BACTERIA,URINE TRACE /HPF (NEGATIVE); HYALINE CASTS, URINE FEW /LPF (NEGATIVE); MUCUS,URINE MODERATE /HPF (NEGATIVE); SQUAMOUS EPITHELIAL CELL,UR RARE /HPF (NEGATIVE)
[2018-07-09] MEDS: LIPITOR TAB 40 MG PO SCH (21:13)
[2018-07-09] MEDS: SNACK - Diabetic Appropriate PO SCH (21:13)
[2018-07-09] MEDS: SINGULAIR TAB 10 MG PO SCH (21:16)
[2018-07-10] MEDS ORDERED: MERREM VIAL ONE (05:21)
[2018-07-10] MEDS ORDERED: NS 100 ML IV 100 ML IV ONE (05:24)
[2018-07-10] MEDS: ULTRAM PO PRN ×3 (05:35→20:22)
[2018-07-10 05:40] LABS: BASOPHILS # (AUTO) 0.1 X10^3/uL (0.0-0.1); BASOPHILS % (AUTO) 0.7 % (0.2-1.0); EOSINOPHILS # (AUTO) 0.3 x10^3/uL (0.0-0.2); HEMATOCRIT 29.5 % (42.0-54.0); HEMOGLOBIN 9.8 g/dL (13.5-18.0); LYMPHOCYTES % (AUTO) 9.2 % (21.0-51.0); MEAN CORPUSCULAR HEMOGLOBIN 30.1 pg (27.0-34.0); MEAN CORPUSCULAR HGB CONC 33.1 g/dL (33.0-35.0); MEAN CORPUSCULAR VOLUME 90.9 fL (80.0-100.0); MEAN PLATELET VOLUME 8.9 fL (7.4-11.0); MONOCYTES # (AUTO) 1.3 x10^3/uL (0.3-0.8); MONOCYTES % (AUTO) 12.6 % (0.0-13.0); NEUTROPHILS # (AUTO) 7.8 x10^3/uL (2.2-4.8); NEUTROPHILS % (AUTO) 74.5 % (42.0-75.0); PLATELET COUNT 203 X10^3/uL (150.0-450.0); RED BLOOD COUNT 3.25 X10^6/uL (4.7-6.0); RED CELL DISTRIBUTION WIDTH 16.9 % (11.6-16.5); WHITE BLOOD COUNT 10.5 X10^3/uL (3.6-10.0)
[2018-07-10 05:53] LABS: ALBUMIN 2.6 g/dL (3.4-5.0); CALCIUM 8.1 mg/dL (8.5-10.1); CARBON DIOXIDE 18.3 mmol/L (21-32); COR CA(FOR HYPOALB) 9.2 mg/dL (8.5-10.1); TOTAL PROTEIN 6.8 g/dL (6.4-8.2)
[2018-07-10] MEDS: LASIX IVP SCH ×3 (06:12→21:59)
[2018-07-10] MEDS: COUMADIN TAB 5 MG PO SCH (08:16)
[2018-07-10] MEDS: LANTUS SC SCH (08:17)
[2018-07-10] MEDS: COZAAR PO SCH (08:20)
[2018-07-10] MEDS: MERREM VIAL IVP SCH ×2 (08:20→20:24)
[2018-07-10] MEDS: HEMOCYTE-PLUS PO SCH (08:20)
[2018-07-10] MEDS: PEPCID 20 MG IV PREMIX* 20 MG/50 ML BAG IV SCH (08:20)
[2018-07-10] MEDS: PROSCAR PO SCH (08:21)
[2018-07-10] MEDS: PROTONIX INJ 40 MG VIAL IVP SCH ×2 (08:21→20:23)
[2018-07-10] MEDS: IMDUR PO SCH (08:21)
[2018-07-10] MEDS: FLONASE NASAL SPRAY ENOSTRIL SCH ×2 (08:21→20:23)
[2018-07-10] MEDS: COREG TAB 12.5 MG PO SCH ×2 (08:21→20:22)
[2018-07-10] MEDS ORDERED: KAYEXALATE SUSP PO ONE (08:44)
[2018-07-10] MEDS: PULMICORT NEB TX 0.5 MG NEB SCH ×2 (08:50→22:09)
[2018-07-10] MEDS: PROVENTIL NEB TX 0.083% 2.5MG/ 3ML NEB PRN ×2 (08:50→22:08)
[2018-07-10] MEDS: PROVENTIL NEB TX 0.083% 2.5MG/ 3ML NEB SCH ×3 (09:00→22:09)
[2018-07-10] MEDS ORDERED: MERREM PREMIX IV 500 MG 500 MG/50 ML BAG IV SCH (09:00)
[2018-07-10] MEDS ORDERED: MERREM VIAL IVP SCH (09:00)
[2018-07-10] MEDS: FLOMAX PO SCH (10:41)
[2018-07-10] MEDS: COLCRYS TAB 0.6 MG PO SCH (10:42)
[2018-07-10] MEDS: NS 1000 ML 1,000 ML IV SCH ×2 (11:50→16:17)
[2018-07-10 13:23] LABS: CARBON DIOXIDE 19.2 mmol/L (21-32); CREATININE 2.17 mg/dL (0.70-1.30)
[2018-07-10] MEDS: SINGULAIR TAB 10 MG PO SCH (20:22)
[2018-07-10] MEDS: LIPITOR TAB 40 MG PO SCH (20:22)
[2018-07-10] MEDS: SNACK - Diabetic Appropriate PO SCH (20:23)
[2018-07-11 05:32] LABS: BASOPHILS # (AUTO) 0.1 X10^3/uL (0.0-0.1); BASOPHILS % (AUTO) 0.6 % (0.2-1.0); EOSINOPHILS # (AUTO) 0.5 x10^3/uL (0.0-0.2); EOSINOPHILS % (AUTO) 5.3 % (0.9-2.9); HEMATOCRIT 30.8 % (42.0-54.0); HEMOGLOBIN 10.1 g/dL (13.5-18.0); LYMPHOCYTES % (AUTO) 9.6 % (21.0-51.0); MEAN CORPUSCULAR HEMOGLOBIN 29.8 pg (27.0-34.0); MEAN CORPUSCULAR HGB CONC 32.9 g/dL (33.0-35.0); MEAN CORPUSCULAR VOLUME 90.7 fL (80.0-100.0); MEAN PLATELET VOLUME 9.6 fL (7.4-11.0); MONOCYTES # (AUTO) 1.3 x10^3/uL (0.3-0.8); MONOCYTES % (AUTO) 12.7 % (0.0-13.0); NEUTROPHILS # (AUTO) 7.1 x10^3/uL (2.2-4.8); NEUTROPHILS % (AUTO) 71.8 % (42.0-75.0); PLATELET COUNT 219 X10^3/uL (150.0-450.0); RED CELL DISTRIBUTION WIDTH 16.6 % (11.6-16.5); WHITE BLOOD COUNT 9.9 X10^3/uL (3.6-10.0)
[2018-07-11 05:36] LABS: CALCIUM 7.9 mg/dL (8.5-10.1); CARBON DIOXIDE 18.9 mmol/L (21-32); CREATININE 2.51 mg/dL (0.70-1.30)
[2018-07-11] MEDS: LASIX IVP SCH ×3 (06:00→22:00)
[2018-07-11] MEDS: PULMICORT NEB TX 0.5 MG NEB SCH ×2 (08:46→20:16)
[2018-07-11] MEDS: PROVENTIL NEB TX 0.083% 2.5MG/ 3ML NEB SCH ×2 (08:47→20:16)
[2018-07-11] MEDS: COLCRYS TAB 0.6 MG PO SCH (09:29)
[2018-07-11] MEDS: FLOMAX PO SCH (09:30)
[2018-07-11] MEDS: COUMADIN TAB 5 MG PO SCH (09:30)
[2018-07-11] MEDS: PEPCID 20 MG IV PREMIX* 20 MG/50 ML BAG IV SCH (09:31)
[2018-07-11] MEDS: PROTONIX INJ 40 MG VIAL IVP SCH ×2 (09:31→20:32)
[2018-07-11] MEDS: LANTUS SC SCH (09:31)
[2018-07-11] MEDS: IMDUR PO SCH (09:31)
[2018-07-11] MEDS: MERREM VIAL IVP SCH ×2 (09:31→20:32)
[2018-07-11] MEDS: PROSCAR PO SCH (09:31)
[2018-07-11] MEDS: HEMOCYTE-PLUS PO SCH (09:32)
[2018-07-11] MEDS: COZAAR PO SCH (09:32)
[2018-07-11] MEDS: COREG TAB 12.5 MG PO SCH ×2 (09:32→20:34)
[2018-07-11] MEDS: FLONASE NASAL SPRAY ENOSTRIL SCH ×2 (09:32→20:35)
[2018-07-11] MEDS: PROVENTIL NEB TX 0.083% 2.5MG/ 3ML NEB PRN ×2 (12:04→17:15)
[2018-07-11 13:05] LABS: ALBUMIN 2.7 g/dL (3.4-5.0); COR CA(FOR HYPOALB) 8.9 mg/dL (8.5-10.1); TOTAL PROTEIN 7.2 g/dL (6.4-8.2)
--- NOTE | 2018-07-11 13:57 | PCM.PROG ---
Progress Note - Progress Note for Day of Date of Exam: 07/11/18 - Subjective Subjective: WAS ADMITTED FOR HYPERKALEMIA AND UNCONTROLLED DIABETES MELLITUS. 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 HE WAS RECEIVING ALDACTONE AND LASIX AT HOME TO MODERATED HIS ASCITES. HYPERKALMEIA IS LIKELY DUE TO USE OF THE ALDACTONE. A URINE CULTURE AND SPUTUM CULTURES WERE OBTAINED ON ADMISSION DUE TO ELEVATED WBC. SPUTUM CULTURE REPORTED GROWTH OF PSEUDOMONAS AERUGINOSA. URINE CULTURE REPORTED GROWTH OF KLEBSIELLA PNEUMONIAE. TODAY, HE IS ALERT AND ORIENTED, LYING IN BED ON MORNING ROUNDS. HE DOES REPORT LOWER ABDOMINAL PAIN AT TIMES. HIS VITALS THIS MORNING ARE 98.0-84-18-94%-112/63. LABS WERE OBTAINED. ABNORMAL LAB VALUES INCLUDE THE F OLLOWING: RBC 3.40, HGB 10.1, HCT 30.8, INR 1.44, SODIUM 133, CARBON DIOXIDE 18.9, BUN 54, CREATININE 2.51, GLUCOSE 120, CALCIUM 7.9, ALK PHOS 172, ALBUMIN 2.7. A URINALYSIS WAS REPEATED YESTERDAY AND REVEALED: WBC TNTC, RBC 5-10, LEUKOCYTES 3+, BACTERIA TRACE, MUCUS FEW. HE IS CURRENTLY RECEIVING RESPIRATORY TREATMENTS, LASIX 20MG IV TID, MEROPENEM 500MG IV Q12H, AND HIS HOME MEDICATIONS WERE RESUMED WITH THE EXCEPTION OF ALDACTONE. WE WILL CONTINUE WITH CURRENT PLAN OF CARE TODAY. OTHERWISE, WE WILL FOLLOW UP WITH AM LABS AND CONTINUE TO MONITOR. - Past Medical Family Social History Past Med/Fam/Surg Hx: No changes since H&P Allergies: Allergies acetaminophen Allergy (Verified 04/11/18 18:00) azithromycin Allergy (Verified 04/11/18 18:00) clindamycin Allergy (Verified 04/11/18 18:00) hydroxyzine [From Atarax] Allergy (Verified 04/11/18 18:00) oxycodone Allergy (Verified 04/11/18 18:00) pseudoephedrine Allergy (Verified 04/11/18 18:00) ramipril Allergy (Verified 04/11/18 18:00) rosiglitazone Allergy (Verified 04/11/18 18:00) VISTARIL Adverse Reaction (Uncoded 11/05/16 15:46) - Review of Systems ROS: No change since H&P - Vital Signs and I&O's Vital Signs: Temperature 97.8 F Pulse Rate [Right Brachial] 53 Pulse Rate [Left Brachial] 59 Pulse Rate 51 Respiratory Rate 18 Blood Pressure [Left Arm] 155/65 Blood Pressure [Right Arm] 94/46 Blood Pressure 117/62 O2 Sat by Pulse Oximetry 96 Intake and Output: Intake & Output 07/09/18 07/10/18 07/11/18 07/12/18 11:59 11:59 11:59 11:59 Intake Total 2320 / 2320 3165 / 3165 1406 / 1406 524 / 524 Output Total 3700 / 3700 2900 / 2900 Balance -1380 / -1380 265 / 265 1406 / 1406 524 / 524 - Physical Exam Oriented: Normal Eyes: Normal Ear: Normal Nose: Normal Throat: Normal Respiratory: Generalized, Diminished Cardiovascular: Normal. negative: S3, Murmur, Edema : Normal Auscultation: Bowel Sounds: Normal Palpation: Normal Tenderness: Suprapubic, Mild. negative: Rebound, Guarding, Rigidity Skin: Normal Musculoskeletal: Normal Psychiatric: Normal Mood Description: Calm Affect: Normal Speech Pattern: Clear, Appropriate - Laboratory and Diagnostics Result Diagrams: 07/11/18 04:05 07/11/18 04:05 Labs: 07/09/18 19:35 Urine,Clean Catch Urine Culture - Final Klebsiella Pneumoniae 07/07/18 21:56 Sputum - Expectorated Sputum Sputum Culture - Final Pseudomonas Aeruginosa 07/07/18 21:56 Sputum - Expectorated Sputum - Final 07/07/18 13:10 Urine,Clean Catch Urine Culture - Final Klebsiella Pneumoniae Laboratory WBC 9.9 X10^3/uL (3.6-10.0) 07/11/18 04:05 RBC 3.40 X10^6/uL (4.7-6.0) L 07/11/18 04:05 Hgb 10.1 g/dL (13.5-18.0) L 07/11/18 04:05 Hct 30.8 % (42.0-54.0) L 07/11/18 04:05 MCV 90.7 fL (80.0-100.0) 07/11/18 04:05 MCH 29.8 pg (27.0-34.0) 07/11/18 04:05 MCHC 32.9 g/dL (33.0-35.0) L 07/11/18 04:05 RDW 16.6 % (11.6-16.5) H 07/11/18 04:05 Plt Count 219 X10^3/uL (150.0-450.0) 07/11/18 04:05 MPV 9.6 fL (7.4-11.0) 07/11/18 04:05 Neut % (Auto) 71.8 % (42.0-75.0) 07/11/18 04:05 Lymph % (Auto) 9.6 % (21.0-51.0) L 07/11/18 04:05 [place] % (Auto) 12.7 % (0.0-13.0) 07/11/18 04:05 Eos % (Auto) 5.3 % (0.9-2.9) H 07/11/18 04:05 Baso % (Auto) 0.6 % (0.2-1.0) 07/11/18 04:05 Neut # (Auto) 7.1 x10^3/uL (2.2-4.8) H 07/11/18 04:05 Lymph # (Auto) 1.0 X10^3/uL (1.3-2.9) L 07/11/18 04:05 [place] # (Auto) 1.3 x10^3/uL (0.3-0.8) H 07/11/18 04:05 Eos # (Auto) 0.5 x10^3/uL (0.0-0.2) H 07/11/18 04:05 Baso # (Auto) 0.1 X10^3/uL (0.0-0.1) 07/11/18 04:05 Absolute Nucleated RBC 0.0 /100WBC 07/11/18 04:05 INR Target Range - 07/11/18 04:05 INR 1.44 (0.8-1.3) H 07/11/18 04:05 Sodium 133 mmol/L (136-145) L 07/11/18 04:05 Corrected Sodium 133 mmol/L (136-145) L 07/11/18 04:05 Potassium 5.0 mmol/L (3.5-5.1) 07/11/18 04:05 Chloride 103 mmol/L (98-107) 07/11/18 04:05 Carbon Dioxide 18.9 mmol/L (21-32) L 07/11/18 04:05 BUN 54 mg/dL (7-18) H 07/11/18 04:05 Creatinine 2.51 mg/dL (0.70-1.30) H 07/11/18 04:05 Est GFR (MDRD) Af Amer 32 (>60) L 07/11/18 04:05 Est GFR (MDRD) Non-Af 27 (>60) L 07/11/18 04:05 Glucose 120 mg/dL (65-99) H 07/11/18 04:05 POC Glucose (mg/dL) 144 mg/dL (65-99) H 07/11/18 11:11 Calcium 7.9 mg/dL (8.5-10.1) L 07/11/18 04:05 Corrected Calcium 8.9 mg/dL (8.5-10.1) 07/11/18 04:05 Total Bilirubin 0.50 mg/dL (0.2-1.0) 07/11/18 04:05 AST 19 Units/L (15-37) 07/11/18 04:05 ALT 20 Units/L (12-78) 07/11/18 04:05 Alkaline Phosphatase 172 Units/L (46-116) H 07/11/18 04:05 Ammonia 20 umol/L (11-32) 07/07/18 13:38 Creatine Kinase 54 Units/L (39-308) 07/08/18 01:40 CK-MB (CK-2) 1.3 ng/mL (0-4.0) 07/08/18 01:40 CK/CKMB % Calc 2.4 % (<4) 07/08/18 01:40 Troponin I 0.03 ng/mL (0-1.5) 07/08/18 01:40 Total Protein 7.2 g/dL (6.4-8.2) 07/11/18 04:05 Albumin 2.7 g/dL (3.4-5.0) L 07/11/18 04:05 Globulin 4.5 g/dL (2.5-4.5) 07/11/18 04:05 Albumin/Globulin Ratio 0.6 Ratio (1.1-2.1) L 07/11/18 04:05 Specimen Type Clean catch urine 07/09/18 19:35 Urine Color Yellow (YELLOW) 07/09/18 19:35 Urine Appearance Cloudy (CLEAR) 07/09/18 19:35 Urine pH 5.0 (5.0 - 8.0) 07/09/18 19:35 Ur Specific [place] 1.010 (1.000-1.030) 07/09/18 19:35 Urine Protein 2+ (NEGATIVE) 07/09/18 19:35 Urine Glucose (UA) Negative (NEGATIVE) 07/09/18 19:35 Urine Ketones Negative (NEGATIVE) 07/09/18 19:35 Urine Occult Blood 3+ (NEGATIVE) 07/09/18 19:35 Urine Nitrite Negative (NEGATIVE) 07/09/18 19:35 Urine Bilirubin Negative (NEGATIVE) 07/09/18 19:35 Urine Urobilinogen Normal (NORMAL) 07/09/18 19:35 Ur Leukocyte Esterase 3+ (NEGATIVE) 07/09/18 19:35 Urine RBC 5-10 /HPF (NONE SEEN) 07/09/18 19:35 Urine WBC Tntc /HPF (NONE SEEN) 07/09/18 19:35 Ur Squamous Epith Cells Rare /HPF (NEGATIVE) 07/09/18 19:35 Amorphous Sediment Trace /HPF (NEGATIVE) 07/09/18 19:35 Urine Bacteria Trace /HPF (NEGATIVE) 07/09/18 19:35 Hyaline Casts Few /LPF (NEGATIVE) 07/09/18 19:35 Urine Mucus Moderate /HPF (NEGATIVE) 07/09/18 19:35 Ur Culture Indicated? Yes/culture set up 07/09/18 19:35 - Plan (1) Urinary tract infection Status: Acute Qualifiers: Urinary tract infection type: acute cystitis Hematuria presence: with hematuria Qualified Code(s): N30.01 - Acute cystitis with hematuria Plan: MEROPENEM 500MG IV Q12H, CONTINUE TO MONITOR (2) Bronchitis Status: Acute Plan: MEROPENEM 500MG IV Q12H, RESPIRATORY TX, SUPPLEMENTAL OXYGEN, CONTINUE TO MONITOR, (3) Acute renal failure Status: Acute Qualifiers: Acute renal failure type: unspecified Qualified Code(s): N17.9 - Acute kidney failure, unspecified Plan: GENTLE IV HYDRATION (4) Hyperlipidemia Status: Acute Qualifiers: Hyperlipidemia type: mixed hyperlipidemia Qualified Code(s): E78.2 - Mixed hyperlipidemia Plan: CONTINUE HOME MEDS (5) Diabetes mellitus, type 2 Status: Chronic Qualifiers: Diabetes mellitus alf insulin use: with alf use Diabetes mellitus complication status: with unspecified complications Qualified Code(s): E11.8 - Type 2 diabetes mellitus with unspecified complications; Z79.4 - middle or intermediate school principal (current) use of insulin Plan: NTUS 25UNITS SC QAM, MONIOTR OTBS ACHS, CONTINUE TO MONITOR (6) Essential hypertension Status: Chronic (7) CAD (coronary artery disease) Status: Chronic Qualifiers: Coronary Disease-Associated Artery/Lesion type: [place] artery [place] vs. transplanted heart: [place] heart Associated angina: without angina Qualified Code(s): I25.10 - Atherosclerotic heart disease of [place] coronary artery with out angina pectoris Plan: CONTINUE HOME MEDS, CONTINUE TO MONITOR (8) COPD (chronic obstructive pulmonary disease) Status: Chronic Qualifiers: COPD type: chronic bronchitis Plan: RESPIRATORY TX, SUPPLEMENTAL OXYGEN, CONTINUE HOME MEDS (9) CHF (congestive heart failure) Status: Chronic Plan: LASIX, CONTINUE HOME MEDS, CONTINUIE TO MONITOR
--- NOTE | 2018-07-11 14:54 | RAD ---
History: Shortness of breath Study: AP chest Comparison: July 08 Findings: The heart size is prominent status post CABG with an intact stimulator wire via the left subclavian vein. There is unchanged mild vascular congestion. There is no significant effusion. There is no focal lung consolidation. Impression: Unchanged mild cardiomegaly and vascular congestion Reported By:
[2018-07-11] MEDS: NS 1000 ML 1,000 ML IV SCH (17:05)
[2018-07-11] MEDS: ULTRAM PO PRN (20:32)
[2018-07-11] MEDS: LIPITOR TAB 40 MG PO SCH (20:32)
[2018-07-11] MEDS: SINGULAIR TAB 10 MG PO SCH (20:33)
[2018-07-11] MEDS: SNACK - Diabetic Appropriate PO SCH (20:34)
[2018-07-12 05:17] LABS: BASOPHILS # (AUTO) 0.1 X10^3/uL (0.0-0.1); BASOPHILS % (AUTO) 0.6 % (0.2-1.0); EOSINOPHILS # (AUTO) 0.5 x10^3/uL (0.0-0.2); EOSINOPHILS % (AUTO) 6.3 % (0.9-2.9); HEMATOCRIT 27.9 % (42.0-54.0); HEMOGLOBIN 9.3 g/dL (13.5-18.0); LYMPHOCYTES % (AUTO) 11.1 % (21.0-51.0); MEAN CORPUSCULAR HEMOGLOBIN 30.5 pg (27.0-34.0); MEAN CORPUSCULAR HGB CONC 33.5 g/dL (33.0-35.0); MEAN PLATELET VOLUME 9.5 fL (7.4-11.0); MONOCYTES % (AUTO) 11.7 % (0.0-13.0); NEUTROPHILS # (AUTO) 6.1 x10^3/uL (2.2-4.8); NEUTROPHILS % (AUTO) 70.3 % (42.0-75.0); PLATELET COUNT 197 X10^3/uL (150.0-450.0); RED BLOOD COUNT 3.06 X10^6/uL (4.7-6.0); RED CELL DISTRIBUTION WIDTH 16.9 % (11.6-16.5); WHITE BLOOD COUNT 8.6 X10^3/uL (3.6-10.0)
[2018-07-12] MEDS: LASIX IVP SCH (05:35)
[2018-07-12 05:42] LABS: ALANINE AMINOTRANSFERASE 19 Units/L (12-78); ALBUMIN 2.4 g/dL (3.4-5.0); ALKALINE PHOSPHATASE 169 Units/L (46-116); ASPARTATE AMINO TRANSFERASE 14 Units/L (15-37); BLOOD UREA NITROGEN 68 mg/dL (7-18); CALCIUM 7.7 mg/dL (8.5-10.1); CARBON DIOXIDE 18.2 mmol/L (21-32); CHLORIDE 103 mmol/L (98-107); CREATININE 2.85 mg/dL (0.70-1.30); SODIUM 132 mmol/L (136-145); TOTAL PROTEIN 6.6 g/dL (6.4-8.2); eGFR NON BLACK RACES 23 (>60)
--- NOTE | 2018-07-12 07:09 | RAD ---
HISTORY: Shortness of breath Study: Chest AP portable Comparison: 07/11/2018 Findings: There is a pacemaker present on the left obscuring a portion of the lateral left upper lobe. The patient is status post median sternotomy and CABG. The heart remains enlarged. No congestive heart failure is noted. No acute alveolar infiltrates or pleural effusions are identified. The bony thorax is unremarkable. IMPRESSION: Persistent cardiomegaly without definite congestive heart failure No infiltrates Reported By:
[2018-07-12] MEDS: PROVENTIL NEB TX 0.083% 2.5MG/ 3ML NEB SCH ×2 (08:45→20:37)
[2018-07-12] MEDS: PULMICORT NEB TX 0.5 MG NEB SCH ×2 (08:45→20:37)
[2018-07-12] MEDS: COLCRYS TAB 0.6 MG PO SCH (08:54)
[2018-07-12] MEDS: FLONASE NASAL SPRAY ENOSTRIL SCH ×2 (08:55→20:42)
[2018-07-12] MEDS: COREG TAB 12.5 MG PO SCH ×2 (08:55→20:41)
[2018-07-12] MEDS: HEMOCYTE-PLUS PO SCH (08:55)
[2018-07-12] MEDS: COUMADIN TAB 5 MG PO SCH (08:55)
[2018-07-12] MEDS: IMDUR PO SCH (08:55)
[2018-07-12] MEDS: COZAAR PO SCH (08:56)
[2018-07-12] MEDS: FLOMAX PO SCH (08:57)
[2018-07-12] MEDS: PROTONIX INJ 40 MG VIAL IVP SCH ×2 (08:57→21:30)
[2018-07-12] MEDS: MERREM VIAL IVP SCH ×2 (08:57→22:00)
[2018-07-12] MEDS: LANTUS SC SCH (08:57)
[2018-07-12] MEDS: PROSCAR PO SCH (08:57)
[2018-07-12] MEDS: PROVENTIL NEB TX 0.083% 2.5MG/ 3ML NEB PRN ×2 (12:05→17:16)
[2018-07-12] MEDS: NS 1000 ML 1,000 ML IV SCH (17:34)
[2018-07-12] MEDS: SNACK - Diabetic Appropriate PO SCH (20:00)
[2018-07-12] MEDS: LIPITOR TAB 40 MG PO SCH (20:40)
[2018-07-12] MEDS: ULTRAM PO PRN (20:40)
[2018-07-12] MEDS: SINGULAIR TAB 10 MG PO SCH (20:41)
[2018-07-13 05:30] LABS: BASOPHILS # (AUTO) 0.1 X10^3/uL (0.0-0.1); BASOPHILS % (AUTO) 0.7 % (0.2-1.0); EOSINOPHILS # (AUTO) 0.5 x10^3/uL (0.0-0.2); EOSINOPHILS % (AUTO) 6.5 % (0.9-2.9); HEMATOCRIT 27.1 % (42.0-54.0); HEMOGLOBIN 9.1 g/dL (13.5-18.0); LYMPHOCYTES # (AUTO) 0.8 X10^3/uL (1.3-2.9); LYMPHOCYTES % (AUTO) 9.2 % (21.0-51.0); MEAN CORPUSCULAR HGB CONC 33.6 g/dL (33.0-35.0); MEAN CORPUSCULAR VOLUME 89.2 fL (80.0-100.0); MEAN PLATELET VOLUME 9.4 fL (7.4-11.0); MONOCYTES # (AUTO) 0.9 x10^3/uL (0.3-0.8); MONOCYTES % (AUTO) 10.4 % (0.0-13.0); NEUTROPHILS # (AUTO) 6.1 x10^3/uL (2.2-4.8); NEUTROPHILS % (AUTO) 73.2 % (42.0-75.0); PLATELET COUNT 202 X10^3/uL (150.0-450.0); RED BLOOD COUNT 3.04 X10^6/uL (4.7-6.0); RED CELL DISTRIBUTION WIDTH 16.8 % (11.6-16.5); WHITE BLOOD COUNT 8.3 X10^3/uL (3.6-10.0)
[2018-07-13 05:52] LABS: ALBUMIN 2.3 g/dL (3.4-5.0); CALCIUM 7.9 mg/dL (8.5-10.1); CARBON DIOXIDE 18.9 mmol/L (21-32); COR CA(FOR HYPOALB) 9.3 mg/dL (8.5-10.1); CREATININE 2.52 mg/dL (0.70-1.30); TOTAL PROTEIN 6.4 g/dL (6.4-8.2)
--- NOTE | 2018-07-13 07:48 | RAD ---
HISTORY: Shortness of breath Study: Chest AP portable Comparison: 07/12/2018 Findings: There is a pacemaker present on the left obscuring a portion of the left upper lobe. The patient is status post median sternotomy and CABG. The heart remains enlarged. No congestive heart failure is noted. The lungs are hyperinflated but free of acute alveolar infiltrates. There is some calcification on the pleural surface of the left hemidiaphragm suggestive of prior asbestos exposure. No pleural effusions are identified. The bony thorax is unremarkable. IMPRESSION: Continued cardiomegaly without congestive heart failure Lungs hyperinflated but clear Diaphragmatic calcifications in a distribution suggestive of prior asbestos exposure Reported By:
[2018-07-13 08:04] VITALS: BP 132/62
--- NOTE | 2018-07-13 08:21 | PCM.PROG ---
Progress Note - Progress Note for Day of Date of Exam: 07/12/18 - Subjective Subjective: WAS ADMITTED FOR HYPERKALEMIA AND UNCONTROLLED DIABETES MELLITUS. 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 HE WAS RECEIVING ALDACTONE AND LASIX AT HOME TO MODERATED HIS ASCITES. HYPERKALMEIA IS LIKELY DUE TO USE OF THE ALDACTONE. A URINE CULTURE AND SPUTUM CULTURES WERE OBTAINED ON ADMISSION DUE TO ELEVATED WBC. SPUTUM CULTURE REPORTED GROWTH OF PSEUDOMONAS AERUGINOSA. URINE CULTURE REPORTED GROWTH OF KLEBSIELLA PNEUMONIAE. TODAY, HE IS ALERT AND ORIENTED, LYING IN BED ON MORNING ROUNDS. HE REPORTS WEAKNESS TODAY. HIS VITALS THIS MORNING ARE 97.5-59-17-94%-131/61. LABS WERE OBTAINED. ABNORMAL LAB VALUES INCLUDE THE FOLLOWING: RBC 3.06, HGB 9.3, HCT 27.9, INR 1.50, SODIUM 132, CARBON DIOXIDE 18.2, BUN 68, CREATININE 2.85, GLUCOSE 102, CALCIUM 7.7, AST 14, ALK PHOS 169, ALBUMIN 2.4. HE IS CURRENTLY RECEIVING RESPIRATORY TREATMENTS, LASIX 20MG IV TID, MEROPENEM 500MG IV Q12H, AND HIS HOME MEDICATIONS WERE RESUMED WITH THE EXCEPTION OF ALDACTONE. TODAY, WE WILL HOLD LASIX DUE TO INCREASE BUN AND CREATININE. WE WILL INCREASE HIS IV FLUIDS TO 60ML/HR. OTHERWISE, WE WILL CONTINUE WITH CURRENT PLAN OF CARE TODAY. WE WILL FOLLOW UP WITH AM LABS AND CONTINUE TO MONITOR. - Past Medical Family Social History Past Med/Fam/Surg Hx: No changes since H&P Allergies: Allergies acetaminophen Allergy (Verified 04/11/18 18:00) azithromycin Allergy (Verified 04/11/18 18:00) clindamycin Allergy (Verified 04/11/18 18:00) hydroxyzine [From Atarax] Allergy (Verified 04/11/18 18:00) oxycodone Allergy (Verified 04/11/18 18:00) pseudoephedrine Allergy (Verified 04/11/18 18:00) ramipril Allergy (Verified 04/11/18 18:00) rosiglitazone Allergy (Verified 04/11/18 18:00) VISTARIL Adverse Reaction (Uncoded 11/05/16 15:46) - Review of Systems ROS: No change since H&P - Vital Signs and I&O's Vital Signs: Temperature 98.3 F Pulse Rate [Right Brachial] 60 Pulse Rate [Left Brachial] 59 Pulse Rate 48 Respiratory Rate 18 Blood Pressure [Left Arm] 109/55 Blood Pressure [Right Arm] 132/62 Blood Pressure 117/62 O2 Sat by Pulse Oximetry 95 Intake and Output: Intake & Output 07/10/18 07/11/18 07/12/18 07/13/18 11:59 11:59 11:59 11:59 Intake Total 3165 / 3165 1406 / 1406 2044 / 2044 2340 / 2340 Output Total 2900 / 2900 Balance 265 / 265 1406 / 1406 2043 / 4 2340 / 2340 - Physical Exam Oriented: Normal Eyes: Normal Ear: Normal Nose: Normal Throat: Normal Respiratory: Generalized, Diminished Cardiovascular: Normal. negative: S3, Murmur, Edema : Normal Auscultation: Bowel Sounds: Normal Palpation: Normal Tenderness: Suprapubic, Mild. negative: Rebound, Guarding, Rigidity Skin: Normal Musculoskeletal: Normal Psychiatric: Normal Mood Description: Calm Affect: Normal Speech Pattern: Clear, Appropriate - Laboratory and Diagnostics Result Diagrams: 07/13/18 04:23 07/13/18 04:23 Labs: 07/09/18 19:35 Urine,Clean Catch Urine Culture - Final Klebsiella Pneumoniae 07/07/18 21:56 Sputum - Expectorated Sputum Sputum Culture - Final Pseudomonas Aeruginosa 07/07/18 21:56 Sputum - Expectorated Sputum - Final 07/07/18 13:10 Urine,Clean Catch Urine Culture - Final Klebsiella Pneumoniae Laboratory WBC 8.3 X10^3/uL (3.6-10.0) 07/13/18 04:23 RBC 3.04 X10^6/uL (4.7-6.0) L 07/13/18 04:23 Hgb 9.1 g/dL (13.5-18.0) L 07/13/18 04:23 Hct 27.1 % (42.0-54.0) L 07/13/18 04:23 MCV 89.2 fL (80.0-100.0) 07/13/18 04:23 MCH 30.0 pg (27.0-34.0) 07/13/18 04:23 MCHC 33.6 g/dL (33.0-35.0) 07/13/18 04:23 RDW 16.8 % (11.6-16.5) H 07/13/18 04:23 Plt Count 202 X10^3/uL (150.0-450.0) 07/13/18 04:23 MPV 9.4 fL (7.4-11.0) 07/13/18 04:23 Neut % (Auto) 73.2 % (42.0-75.0) 07/13/18 04:23 Lymph % (Auto) 9.2 % (21.0-51.0) L 07/13/18 04:23 Lipscomb % (Auto) 10.4 % (0.0-13.0) 07/13/18 04:23 Eos % (Auto) 6.5 % (0.9-2.9) H 07/13/18 04:23 Baso % (Auto) 0.7 % (0.2-1.0) 07/13/18 04:23 Neut # (Auto) 6.1 x10^3/uL (2.2-4.8) H 07/13/18 04:23 Lymph # (Auto) 0.8 X10^3/uL (1.3-2.9) L 07/13/18 04:23 Lipscomb # (Auto) 0.9 x10^3/uL (0.3-0.8) H 07/13/18 04:23 Eos # (Auto) 0.5 x10^3/uL (0.0-0.2) H 07/13/18 04:23 Baso # (Auto) 0.1 X10^3/uL (0.0-0.1) 07/13/18 04:23 Absolute Nucleated RBC 0.0 /100WBC 07/13/18 04:23 INR Target Range - 07/13/18 04:23 INR 1.47 (0.8-1.3) H 07/13/18 04:23 Sodium 133 mmol/L (136-145) L 07/13/18 04:23 Corrected Sodium 133 mmol/L (136-145) L 07/13/18 04:23 Potassium 4.6 mmol/L (3.5-5.1) 07/13/18 04:23 Chloride 104 mmol/L (98-107) 07/13/18 04:23 Carbon Dioxide 18.9 mmol/L (21-32) L 07/13/18 04:23 BUN 75 mg/dL (7-18) H 07/13/18 04:23 Creatinine 2.52 mg/dL (0.70-1.30) H 07/13/18 04:23 Est GFR (MDRD) Af Amer 32 (>60) L 07/13/18 04:23 Est GFR (MDRD) Non-Af 27 (>60) L 07/13/18 04:23 Glucose 113 mg/dL (65-99) H 07/13/18 04:23 POC Glucose (mg/dL) 110 mg/dL (65-99) H 07/13/18 05:37 Calcium 7.9 mg/dL (8.5-10.1) L 07/13/18 04:23 Corrected Calcium 9.3 mg/dL (8.5-10.1) 07/13/18 04:23 Total Bilirubin 0.30 mg/dL (0.2-1.0) 07/13/18 04:23 AST 17 Units/L (15-37) 07/13/18 04:23 ALT 19 Units/L (12-78) 07/13/18 04:23 Alkaline Phosphatase 169 Units/L (46-116) H 07/13/18 04:23 Ammonia 20 umol/L (11-32) 07/07/18 13:38 Creatine Kinase 54 Units/L (39-308) 07/08/18 01:40 CK-MB (CK-2) 1.3 ng/mL (0-4.0) 07/08/18 01:40 CK/CKMB % Calc 2.4 % (<4) 07/08/18 01:40 Troponin I 0.03 ng/mL (0-1.5) 07/08/18 01:40 Total Protein 6.4 g/dL (6.4-8.2) 07/13/18 04:23 Albumin 2.3 g/dL (3.4-5.0) L 07/13/18 04:23 Globulin 4.1 g/dL (2.5-4.5) 07/13/18 04:23 Albumin/Globulin Ratio 0.6 Ratio (1.1-2.1) L 07/13/18 04:23 Specimen Type Clean catch urine 07/09/18 19:35 Urine Color Yellow (YELLOW) 07/09/18 19:35 Urine Appearance Cloudy (CLEAR) 07/09/18 19:35 Urine pH 5.0 (5.0 - 8.0) 07/09/18 19:35 Ur Specific [place] 1.010 (1.000-1.030) 07/09/18 19:35 Urine Protein 2+ (NEGATIVE) 07/09/18 19:35 Urine Glucose (UA) Negative (NEGATIVE) 07/09/18 19:35 Urine Ketones Negative (NEGATIVE) 07/09/18 19:35 Urine Occult Blood 3+ (NEGATIVE) 07/09/18 19:35 Urine Nitrite Negative (NEGATIVE) 07/09/18 19:35 Urine Bilirubin Negative (NEGATIVE) 07/09/18 19:35 Urine Urobilinogen Normal (NORMAL) 07/09/18 19:35 Ur Leukocyte Esterase 3+ (NEGATIVE) 07/09/18 19:35 Urine RBC 5-10 /HPF (NONE SEEN) 07/09/18 19:35 Urine WBC Tntc /HPF (NONE SEEN) 07/09/18 19:35 Ur Squamous Epith Cells Rare /HPF (NEGATIVE) 07/09/18 19:35 Amorphous Sediment Trace /HPF (NEGATIVE) 07/09/18 19:35 Urine Bacteria Trace /HPF (NEGATIVE) 07/09/18 19:35 Hyaline Casts Few /LPF (NEGATIVE) 07/09/18 19:35 Urine Mucus Moderate /HPF (NEGATIVE) 07/09/18 19:35 Ur Culture Indicated? Yes/culture set up 07/09/18 19:35 - Plan (1) Urinary tract infection Status: Acute Qualifiers: Urinary tract infection type: acute cystitis Hematuria presence: with hematuria Qualified Code(s): N30.01 - Acute cystitis with hematuria Plan: MEROPENEM 500MG IV Q12H, CONTINUE TO MONITOR (2) Bronchitis Status: Acute Plan: MEROPENEM 500MG IV Q12H, RESPIRATORY TX, SUPPLEMENTAL OXYGEN, CONTINUE TO MONITOR, (3) Acute renal failure Status: Acute Qualifiers: Acute renal failure type: unspecified Qualified Code(s): N17.9 - Acute kidney failure, unspecified Plan: GENTLE IV HYDRATION (4) Hyperlipidemia Status: Acute Qualifiers: Hyperlipidemia type: mixed hyperlipidemia Qualified Code(s): E78.2 - Mixed hyperlipidemia Plan: CONTINUE HOME MEDS (5) Diabetes mellitus, type 2 Status: Chronic Qualifiers: Diabetes mellitus dedicated intermodal truck driver insulin use: with dedicated intermodal truck driver use Diabetes mellitus complication status: with unspecified complications Qualified Code(s): E11.8 - Type 2 diabetes mellitus with unspecified complications; Z79.4 - exterminator termite (current) use of insulin Plan: LANTUS 25UNITS SC QAM, MONITOR OTBS ACHS, CONTINUE TO MONITOR (6) Essential hypertension Status: Chronic (7) CAD (coronary artery disease) Status: Chronic Qualifiers: Coronary Disease-Associated Artery/Lesion type: [place] artery [place] vs. transplanted heart: [place] heart Associated angina: without angina Qualified Code(s): I25.10 - Atherosclerotic heart disease of [place] coronary artery without angina pectoris Plan: CONTINUE HOME MEDS, CONTINUE TO MONITOR (8) COPD (chronic obstructive pulmonary disease) Status: Chronic Qualifiers: COPD type: chronic bronchitis Plan: RESPIRATORY TX, SUPPLEMENTAL OXYGEN, CONTINUE HOME MEDS (9) CHF (congestive heart failure) Status: Chronic Plan: CONTINUE HOME MEDS, CONTINUE TO MONITOR
[2018-07-13] MEDS: PROVENTIL NEB TX 0.083% 2.5MG/ 3ML NEB SCH (08:30)
[2018-07-13] MEDS: PULMICORT NEB TX 0.5 MG NEB SCH (08:30)
[2018-07-13] MEDS: COLCRYS TAB 0.6 MG PO SCH (08:32)
[2018-07-13] MEDS: COREG TAB 12.5 MG PO SCH (08:32)
[2018-07-13] MEDS: COZAAR PO SCH (08:33)
[2018-07-13] MEDS: FLOMAX PO SCH (08:33)
[2018-07-13] MEDS: COUMADIN TAB 5 MG PO SCH (08:33)
[2018-07-13] MEDS: MERREM VIAL IVP SCH (08:34)
[2018-07-13] MEDS: PROSCAR PO SCH (08:34)
[2018-07-13] MEDS: FLONASE NASAL SPRAY ENOSTRIL SCH (08:34)
[2018-07-13] MEDS: IMDUR PO SCH (08:34)
[2018-07-13] MEDS: PROTONIX INJ 40 MG VIAL IVP SCH (08:34)
[2018-07-13] MEDS: HEMOCYTE-PLUS PO SCH (08:34)
[2018-07-13] MEDS: LANTUS SC SCH (08:35)
== END 2018-07-13 12:01 | disposition home or self-care (01) | DRG 641 ==
LOC: ICU → OBSVTOIN 13:13 → MED/SURG 07-10 10:54
PROVIDERS: ADMIT Obstetrics & Gynecology Obstetrics; ATTEND Internal Medicine
DX: I11.0 Hypertensive heart disease with heart failure; N40.0 Benign prostatic hyperplasia without lower urinary tract symptoms; I48.91 Unspecified atrial fibrillation; I25.10 Atherosclerotic heart disease of native coronary artery without angina pectoris; Z79.01 Long term (current) use of anticoagulants; E87.5 Hyperkalemia; I50.9 Heart failure, unspecified; J20.8 Acute bronchitis due to other specified organisms; E78.2 Mixed hyperlipidemia; B96.1 Klebsiella pneumoniae [K. pneumoniae] as the cause of diseases classified elsewhere; Z95.0 Presence of cardiac pacemaker; Z79.4 Long term (current) use of insulin; N30.01 Acute cystitis with hematuria; K72.10 Chronic hepatic failure without coma; J44.9 Chronic obstructive pulmonary disease, unspecified; E11.65 Type 2 diabetes mellitus with hyperglycemia; N17.8 Other acute kidney failure; N18.2 Chronic kidney disease, stage 2 (mild)
CPT/HCPCS: 36415; 71010; 71045; 80048; 80053; 81001; 81003; 82140; 82550; 82553; 84132; 84484; 85025; 85610; 87070; 87077; 87086; 87088; 87186; 87205; 93005; 94640; A4222; C9113; S0028; S0138; J1815; J1940; J2185; J7030; J7050; J7613; J7626

== ENCOUNTER 2022-10-14 12:40 | Inpatient (IN) ==
[2022-10-14 13:56] LABS: BILIRUBIN,URINE NEGATIVE (NEGATIVE); BLOOD/HEMOGLOBIN,URINE NEGATIVE (NEGATIVE); GLUCOSE, URINE NEGATIVE (NEGATIVE); KETONES,URINE NEGATIVE (NEGATIVE); LEUKOCYTE ESTERASE ,URINE 1+ (NEGATIVE); NITRITES,URINE POSITIVE (NEGATIVE); PROTEIN,URINE NEGATIVE (NEGATIVE); UROBILINOGEN,URINE NORMAL (NORMAL)
[2022-10-14] MEDS ORDERED: PROVENTIL NEB TX 0.083% 2.5MG/ 3ML NEB PRN (14:04)
[2022-10-14 14:05] LABS: APPEARANCE,URINE HAZY (CLEAR); BACTERIA,URINE 3+ /HPF (NEGATIVE); COLOR,URINE PALE YELLOW (YELLOW); RBC,URINE NONE SEEN /HPF (0-3); SQUAMOUS EPITHELIAL CELL,UR RARE /HPF (NEGATIVE)
--- NOTE | 2022-10-14 14:53 | EKG ---
Test Reason : WEAKNESS, SOB, HX AFIB Blood Pressure : */* mmHG Vent. Rate : 50 BPM Atrial Rate : 47 BPM P-R Int : * ms QRS Dur : 210 ms QT Int : 556 ms P-R-T Axes : * -88 82 degrees QTc Int : 506 ms Ventricular-paced rhythm Abnormal ECG When compared with ECG of 23-APR-2022 03:26, No significant change was found Confirmed by Merrill Munoz ([id number]) on 10/15/2022 7:45:10 AM Referred By: Confirmed By: Merrill Munoz
[2022-10-14 15:36] LABS: EOSINOPHILS # (AUTO) 0.1 x10^3/uL (0.0-0.2); HEMOGLOBIN 14.9 g/dL (13.5-18.0); MEAN PLATELET VOLUME 8.7 fL (7.4-11.0)
[2022-10-14 15:49] LABS: ALBUMIN 1.6 g/dL (3.4-5.0); CALCIUM 7.7 mg/dL (8.5-10.1); CARBON DIOXIDE 25.9 mmol/L (21-32); COR CA(FOR HYPOALB) 9.6 mg/dL (8.5-10.1); CREATININE 2.54 mg/dL (0.70-1.30); TOTAL PROTEIN 5.3 g/dL (6.4-8.2)
[2022-10-14 16:09] LABS: BASOPHILS # (AUTO) 0.1 X10^3/uL (0.0-0.1); BASOPHILS % (AUTO) 0.9 % (0.2-1.0); EOSINOPHILS % (AUTO) 0.8 % (0.9-2.9); HEMATOCRIT 45.2 % (42.0-54.0); LYMPHOCYTES % (AUTO) 8.8 % (21.0-51.0); MEAN CORPUSCULAR HGB CONC 32.9 g/dL (33.0-35.0); MEAN CORPUSCULAR VOLUME 97.1 fL (80.0-100.0); MONOCYTES # (AUTO) 0.9 x10^3/uL (0.3-0.8); MONOCYTES % (AUTO) 7.7 % (0.0-13.0); NEUTROPHILS # (AUTO) 9.2 x10^3/uL (2.2-4.8); NEUTROPHILS % (AUTO) 81.8 % (42.0-75.0); PLATELET COUNT 212 X10^3/uL (150.0-450.0); RED BLOOD COUNT 4.65 X10^6/uL (4.7-6.0); RED CELL DISTRIBUTION WIDTH 15.3 % (11.6-16.5); WHITE BLOOD COUNT 11.2 X10^3/uL (3.6-10.0)
[2022-10-14] MEDS ORDERED: STERILE WATER IRRIGATION IR ONE ×2 (18:22→18:37)
[2022-10-14] MEDS ORDERED: VALIUM PO PRN (18:40)
[2022-10-14] MEDS ORDERED: PULMICORT NEB TX 0.5 MG NEB ONE (19:10)
[2022-10-14] MEDS: SNACK - Diabetic Appropriate PO SCH (20:00)
[2022-10-14] MEDS: PROVENTIL NEB TX 0.083% 2.5MG/ 3ML NEB PRN (20:08)
[2022-10-14] MEDS: PULMICORT NEB TX 0.5 MG NEB SCH (20:08)
[2022-10-14] MEDS ORDERED: PULMICORT NEB TX 0.5 MG NEB SCH (21:00)
[2022-10-14] MEDS: NovoLIN R (or HumuLIN R) SUBCUT PRN (21:22)
[2022-10-14] MEDS: VALIUM PO PRN (21:22)
--- NOTE | 2022-10-15 01:34 | RAD ---
HISTORYSOBSTUDYCHEST, 1 VIEWCOMPARISONDecember 2021TECHNIQUEChest radiographic imaging, AP portable projection, 1 imageFINDINGSMild cardiomegaly.Status post median sternotomy/CABG.Implanted ICD device in place.Small bilateral pleural effusions.Bilateral increased interstitial markings.No pneumothorax.IMPRESSIONFindings are concerning for mild acute cardiogenic edema resulting in small bilateral pleural effusions.Electronically signed by: German Cooley (October 15, 2022 01:33:44)
[2022-10-15 05:11] LABS: BASOPHILS # (AUTO) 0.1 X10^3/uL (0.0-0.1); BASOPHILS % (AUTO) 1.3 % (0.2-1.0); EOSINOPHILS # (AUTO) 0.2 x10^3/uL (0.0-0.2); EOSINOPHILS % (AUTO) 2.1 % (0.9-2.9); HEMATOCRIT 43.1 % (42.0-54.0); HEMOGLOBIN 14.5 g/dL (13.5-18.0); MEAN CORPUSCULAR HEMOGLOBIN 32.2 pg (27.0-34.0); MEAN CORPUSCULAR HGB CONC 33.6 g/dL (33.0-35.0); MEAN CORPUSCULAR VOLUME 95.7 fL (80.0-100.0); MEAN PLATELET VOLUME 8.1 fL (7.4-11.0); MONOCYTES # (AUTO) 1.1 x10^3/uL (0.3-0.8); MONOCYTES % (AUTO) 9.4 % (0.0-13.0); NEUTROPHILS # (AUTO) 9.1 x10^3/uL (2.2-4.8); NEUTROPHILS % (AUTO) 78.2 % (42.0-75.0); PLATELET COUNT 223 X10^3/uL (150.0-450.0); RED CELL DISTRIBUTION WIDTH 15.2 % (11.6-16.5); WHITE BLOOD COUNT 11.7 X10^3/uL (3.6-10.0)
[2022-10-15 05:20] LABS: ALBUMIN 1.6 g/dL (3.4-5.0); CALCIUM 7.6 mg/dL (8.5-10.1); CARBON DIOXIDE 27.1 mmol/L (21-32); COR CA(FOR HYPOALB) 9.5 mg/dL (8.5-10.1); CREATININE 2.31 mg/dL (0.70-1.30); POTASSIUM 4.9 mmol/L (3.5-5.1); TOTAL PROTEIN 5.1 g/dL (6.4-8.2)
[2022-10-15] MEDS ORDERED: NS 50 ML IV 50 ML IV ONE ×2 (08:01→09:37)
[2022-10-15] MEDS: PULMICORT NEB TX 0.5 MG NEB SCH ×2 (08:24→21:57)
[2022-10-15] MEDS ORDERED: ALBUMIN HUMAN 25%- 100 ML 100 ML IV SCH (09:00)
[2022-10-15] MEDS: LOVENOX INJ 30 MG SYR SC SCH (09:35)
[2022-10-15] MEDS: LASIX IVP SCH ×2 (11:58→20:09)
[2022-10-15] MEDS: ASPIRIN EC 81 MG PO SCH (11:59)
[2022-10-15] MEDS: GENTAMICIN TOPICAL OINT TOP SCH ×2 (11:59→20:10)
[2022-10-15] MEDS: SINGULAIR TAB 10 MG PO SCH (11:59)
[2022-10-15] MEDS: HEMOCYTE-PLUS PO SCH ×2 (11:59→20:09)
[2022-10-15] MEDS: IMDUR PO SCH (11:59)
[2022-10-15] MEDS: PROSCAR PO SCH (11:59)
[2022-10-15] MEDS: COREG TAB 6.25 MG PO SCH ×2 (11:59→20:10)
[2022-10-15] MEDS: SODIUM BICARBONATE TAB 650MG PO SCH ×2 (11:59→20:09)
[2022-10-15] MEDS ORDERED: ROCEPHIN VIAL 1 GRAM 1 G in NS 100 ML IV + SPIKE MINIBAG* 100 ML IV SCH (13:00)
--- NOTE | 2022-10-15 13:17 | DR.H&P ---
H&P - History & Physical for Day of: H&P Date: 10/14/22 - Chief Complaint Chief Complaint: SWELLING, SHORTNESS OF BREATH, WEAKNES - History of Present Illness History of Present Illness: IS A 82 YEAR OLD PATIENT OF OURS. HE WAS A DIRECT ADMISSION TO THE HOSPITAL INPATIENT STATUS FOR TREATMENT OF LOWER EXTREMITY CELLULITIS, GENERALIZED SWELLING, INCREASED SHORTNESS OF BREATH, AND GENERALIZED WEAKNESS. PATIENT HAS A HX OF CIRRHOSIS, CAD, HTN, CHRONIC BRONCHITIS, STAGE 4 RENAL FAILURE, ARTHRITIS, TYPE 2 DIABETES, CABG WITH BYPASS X 4, WATCHMANS DEVICE, AND DEGIFIBRILLATOR. HE WAS SCHEDULED FOR A PARACENTESIS ON THE MORNING OF ADMISSION, HOWEVER, HE REPORTS THAT THERE WAS NO FLUID IN THE AMDOMEN TO PULL OFF WHEN THEY ATTEMPTED. UPON ARRIVAL, PATIENT WAS NOTED TO HAVE SWELLING OF THE UPPER AND LOWER EXTREMITIES, THE ABDOMEN, AND THE SCROTUM. 1+ EDEMA WAS NOTED TO UPPER EXTREMITIES. LOWER EXTREMITIES WERE NOTED TO HAVE 3+ PITTING EDEMA, ERYTHEMA, AND WEEPING. ON ARRIVAL, HIS VITALS WERE: 97.5-50-18-95%-147/55. LABS WERE OBTAINED. WBC 11.2, RBC 4.65, HGB 14.9, HCT 45.2, PLT COUNT 212, SODIUM 138, POTASSIUM 5.0, CHLORIDE 104, BUN 75, CREATININE 2.54, GLUCOSE 192, CALCIUM 7.7, AST 25, ALT 20, ALK PHOS 116, AMMONIA 29, CREATINE KINASE 84, TROPONIN 35.9, BNP 309, TOTAL PROTEIN 5.3, ALBUMIN 1.6. URINALYSIS WAS OBTAINED AND REVEALED: WBC 10-20, RBC NONE, LEUKOCYTES 1+, BACTERIA 3+. A URINE CULTURE, BLOOD CULTURES, AND RIGHT ELBOW WOUND CULTURE WERE SET UP. A CHEST XRAY WAS OBTAINED AND REVEALED: Findings are concerning for mild acute cardiogenic edema resulting in small bilateral pleural effusions. EKG REVEALED VENTRICULAR PACED RHYTHM WITH HR 50 BPM. HE WAS STARTED ON LASIX 40MG IV BID, ALBUMIN 25% IV BID, LOVENOX 30MG SC DAILY, ROCEPHIN 1G IV DAILY, GENTAMICIN OINTMENT TO LEGS BID, VALIUM 2.5MG PO Q12H, OTBS ACHS, HUMULIN R SLIDING SCALE, ALBUTEROL NEBS PRN, PULMICORT NEBS BID. HIS HOME MEDICATIONS OF ASPIRIN, COREG, PROSCAR, LANTUS, IMDUR, SINGULAIR, HEMOCYTE PLUS, SODIUM BICARBONATE WERE RESUMED. OTHERWISE, WE PLAN TO FOLLOW-UP WITH AM LABS AND CONTINUE TO MONITOR. TIME SPENT ON CLINICAL ASSESSMENT, REVIEWING LABS AND IMAGING, DECISION MAKING, AND DOCUMENTATION GREATER THAN 75 MINUTES. - Past Medical History Past Medical History: GA, Coronary Artery Disease, Hypertension, Dyslipidemia, Diabetes, Renal Disease, Liver Disease, Cirrhosis, COPD, Arthritis, CHF Additional Medical History: Pacemaker, Defibrillator - Past Surgical History Surgical History: Angioplasty/Stents, CABG/Valve Surgery, Ortho Surgery - Family History Family Medical History: Diabetes Mellitus, Coronary Artery Disease, Hypertension - Social History Alcohol Use: None Drug Use: None - Medications Home Medications: Home Medications Medication Instructions Recorded Confirmed Type carvedilol 12.5 mg tablet 12.5 mg PO BID 07/08/18 10/14/22 History finasteride 5 mg tablet 5 mg PO DAILY 07/08/18 10/14/22 History isosorbide mononitrate 30 mg 30 mg PO DAILY 07/08/18 10/14/22 History tablet,extended release 24 hr montelukast 10 mg tablet 10 mg PO DAILY 07/08/18 10/14/22 History albuterol sulfate 2.5 mg/3 mL 1 ea NEB DAILY PRN 10/14/22 10/14/22 History (0.083 %) solution for nebulization aspirin 81 mg tablet 81 mg PO DAILY 10/14/22 10/14/22 History budesonide-formoterol HFA 160 2 puff inhalation BID 10/14/22 10/14/22 History mcg-4.5 mcg/actuation aerosol inhaler (Symbicort) furosemide 40 mg tablet 1 tab PO QDAY 10/14/22 10/14/22 History insulin glargine 100 unit/mL (3 32 unit subcut QAM 10/14/22 10/14/22 History mL) subcutaneous pen (Lantus Solostar U-100 Insulin) iron-folic acid-multivitamin, 1 cap PO BID 10/14/22 10/14/22 History mineral comb#15 106 mg iron-1 mg capsule (Hemocyte-Plus) sodium bicarbonate 650 mg tablet 1 tab PO BID 10/14/22 10/14/22 History spironolactone 25 mg tablet 25 mg PO HS 10/14/22 10/14/22 History spironolactone 50 mg tablet 1 tab PO QDAY 10/14/22 10/14/22 History - Review of Systems Constitutional: Weakness Eyes: No Symptoms Reported ENT: No Symptoms Reported Respiratory: Shortness of Breath, SOB with Excertion Cardiovascular: Edema (GENERALIZED ) Gastrointestinal: No Symptoms Reported Genitourinary: No Symptoms Reported Musculoskeletal: Leg Pain Skin: See HPI, Wound (RIGHT ELBOW AND BILATERAL LEGS ) Neurological: Weakness - Physical Exam Vital Signs: Temperature 98 F Temperature 97.5 F Pulse Rate [Left Brachial] 50 Pulse Rate 50 Pulse Rate 50 Respiratory Rate 20 Respiratory Rate 18 Blood Pressure [Left Arm] 147/55 Blood Pressure [Right Arm] 172/72 Blood Pressure 117/47 O2 Sat by Pulse Oximetry 99 O2 Sat by Pulse Oximetry 95 Oriented: Normal Eyes: Normal Ear: Normal Nose: Normal Throat: Normal Respiratory: Diminished Throughout Cardiovascular: Edema (LOWER EXTREMITIES 3+ PITTING, UPPER EXTREMITIES 1+ PITTING ) : Normal Auscultation: Bowel Sounds: Normal Palpation: Normal Tenderness: Normal Skin: Red (BILATERAL LOWER EXTREMITIES ), Tender, Wound (DRAINING BLISTERS TO BILATERAL LOWER EXTREMITIES, LEFT HEEL ULCER, RIGHT ELBOW WOUND ) Musculoskeletal: Right, Left, Leg, Swelling, Tender Psychiatric: Anxiety Mood Description: Anxious Affect: Normal Speech Pattern: Clear - Assessment/Plan (1) Bilateral lower leg cellulitis Status: Acute Plan: ADMIT, WOUND CARE, LASIX 40MG IV BID, ALBUMIN 25% IV BID, LOVENOX 30MG SC DAILY, ROCEPHIN 1G IV DAILY, GENTAMICIN OINTMENT TO LEGS BID, VALIUM 2.5MG PO Q12H, OTBS ACHS, HUMULIN R SLIDING SCALE, ALBUTEROL NEBS PRN, PULMICORT NEBS BID. RESUME HOME MEDS (2) Cellulitis of right elbow Status: Acute (3) Anasarca Status: Acute (4) Acute on chronic renal failure Qualifiers: Acute renal failure type: unspecified Chronic kidney disease stage: stage 4 (severe) Qualified Code(s): N17.9 - Acute kidney failure, unspecified; N18.4 - Chronic kidney disease, stage 4 (severe) Status: Acute (5) Generalized weakness Status: Acute (6) Shortness of breath Status: Acute (7) Hyperlipidemia Qualifiers: Hyperlipidemia type: mixed hyperlipidemia Qualified Code(s): E78.2 - Mixed hyperlipidemia Status: Chronic (8) Diabetes mellitus, type 2 Qualifiers: Diabetes mellitus terminal superintendent insulin use: with care home use Diabetes mellitus complication status: with unspecified complications Status: Chronic (9) Essential hypertension Status: Chronic (10) CAD (coronary artery disease) Qualifiers: Coronary Disease-Associated Artery/Lesion type: [place] artery [place] vs. transplanted heart: [place] heart Associated angina: without angina Qualified Code(s): I25.10 - Atherosclerotic heart disease of [place] coronary artery without angina pectoris Status: Chronic (11) COPD (chronic obstructive pulmonary disease) Qualifiers: COPD type: chronic bronchitis Status: Chronic (12) CHF (congestive heart failure) Status: Chronic - Allergies Allergies/Adverse Reactions: Allergies Allergy/AdvReac Type Severity Reaction Status Date / Time acetaminophen Allergy Verified 04/11/18 18:00 azithromycin Allergy Verified 04/11/18 18:00 clindamycin Allergy Verified 04/11/18 18:00 hydroxyzine [From Atarax] Allergy Verified 04/11/18 18:00 pseudoephedrine Allergy Verified 04/11/18 18:00 ramipril Allergy Verified 04/11/18 18:00 rosiglitazone Allergy Verified 04/11/18 18:00 VISTARIL AdvReac Uncoded 11/05/16 15:46
[2022-10-15] MEDS: ROCEPHIN VIAL 1 GRAM 1 G in NS 100 ML IV 100 ML IV SCH (15:13)
[2022-10-15] MEDS: NovoLIN R (or HumuLIN R) SUBCUT PRN ×2 (16:58→20:11)
[2022-10-15] MEDS: ALBUMIN HUMAN 25%- 100 ML 100 ML IV SCH (20:05)
[2022-10-15] MEDS: VALIUM PO PRN (20:09)
[2022-10-15] MEDS: SNACK - Diabetic Appropriate PO SCH (20:22)
[2022-10-15] MEDS ORDERED: ALDACTONE TAB 25 MG PO SCH (21:00)
[2022-10-16 05:34] LABS: BASOPHILS # (AUTO) 0.1 X10^3/uL (0.0-0.1); BASOPHILS % (AUTO) 1.3 % (0.2-1.0); EOSINOPHILS # (AUTO) 0.3 x10^3/uL (0.0-0.2); EOSINOPHILS % (AUTO) 2.8 % (0.9-2.9); HEMATOCRIT 40.4 % (42.0-54.0); HEMOGLOBIN 13.7 g/dL (13.5-18.0); LYMPHOCYTES # (AUTO) 1.1 X10^3/uL (1.3-2.9); LYMPHOCYTES % (AUTO) 10.4 % (21.0-51.0); MEAN CORPUSCULAR HEMOGLOBIN 32.8 pg (27.0-34.0); MEAN CORPUSCULAR VOLUME 96.6 fL (80.0-100.0); MEAN PLATELET VOLUME 8.6 fL (7.4-11.0); MONOCYTES # (AUTO) 1.2 x10^3/uL (0.3-0.8); MONOCYTES % (AUTO) 11.1 % (0.0-13.0); NEUTROPHILS # (AUTO) 7.9 x10^3/uL (2.2-4.8); NEUTROPHILS % (AUTO) 74.4 % (42.0-75.0); PLATELET COUNT 206 X10^3/uL (150.0-450.0); RED BLOOD COUNT 4.18 X10^6/uL (4.7-6.0); WHITE BLOOD COUNT 10.6 X10^3/uL (3.6-10.0)
[2022-10-16 05:46] LABS: CALCIUM 7.4 mg/dL (8.5-10.1); CARBON DIOXIDE 26.5 mmol/L (21-32); CREATININE 2.35 mg/dL (0.70-1.30); POTASSIUM 4.7 mmol/L (3.5-5.1)
[2022-10-16] MEDS: NovoLIN R (or HumuLIN R) SUBCUT PRN ×4 (05:49→20:21)
[2022-10-16] MEDS: PULMICORT NEB TX 0.5 MG NEB SCH ×2 (08:30→20:03)
[2022-10-16] MEDS: PROSCAR PO SCH (09:07)
[2022-10-16] MEDS: HEMOCYTE-PLUS PO SCH ×2 (09:07→20:17)
[2022-10-16] MEDS: LOVENOX INJ 30 MG SYR SC SCH (09:08)
[2022-10-16] MEDS: IMDUR PO SCH (09:08)
[2022-10-16] MEDS: COREG TAB 6.25 MG PO SCH ×2 (09:08→20:17)
[2022-10-16] MEDS: ASPIRIN EC 81 MG PO SCH (09:08)
[2022-10-16] MEDS: SODIUM BICARBONATE TAB 650MG PO SCH ×2 (09:08→20:17)
[2022-10-16] MEDS: SINGULAIR TAB 10 MG PO SCH (09:08)
[2022-10-16] MEDS: LANTUS SC SCH (09:09)
[2022-10-16] MEDS: ROCEPHIN VIAL 1 GRAM 1 G in NS 100 ML IV 100 ML IV SCH (09:10)
[2022-10-16] MEDS: GENTAMICIN TOPICAL OINT TOP SCH ×2 (09:14→20:21)
[2022-10-16] MEDS: ALBUMIN HUMAN 25%- 100 ML 100 ML IV SCH ×2 (10:45→20:18)
[2022-10-16] MEDS ORDERED: MILK OF MAGNESIA PO PRN (12:45)
[2022-10-16] MEDS ORDERED: MILK OF MAGNESIA ONE (13:12)
[2022-10-16] MEDS: VALIUM PO PRN (20:17)
[2022-10-16] MEDS: SNACK - Diabetic Appropriate PO SCH (20:18)
--- NOTE | 2022-10-16 20:26 | RAD ---
HISTORYsob cirrhosis weakness Relevant Clinical InformationSTUDYCHEST, 1 [id number]/25/2023.FINDINGSThe trachea is midline. Pacemaker and leads are present. Heart size is enlarged. Pulmonary blood flow is congested. Interstitial markings are increased. There is basilar atelectasis and trace effusions. The bony thorax is unremarkable.IMPRESSIONCardiomegaly with interstitial edema, basilar atelectasis, and trace effusions.Electronically signed by: Wing Tubbs (October 16, 2022 20:25:33)
[2022-10-17 05:18] LABS: BASOPHILS # (AUTO) 0.1 X10^3/uL (0.0-0.1); BASOPHILS % (AUTO) 1.4 % (0.2-1.0); EOSINOPHILS # (AUTO) 0.3 x10^3/uL (0.0-0.2); EOSINOPHILS % (AUTO) 3.1 % (0.9-2.9); HEMATOCRIT 42.7 % (42.0-54.0); HEMOGLOBIN 14.4 g/dL (13.5-18.0); LYMPHOCYTES # (AUTO) 1.2 X10^3/uL (1.3-2.9); LYMPHOCYTES % (AUTO) 11.2 % (21.0-51.0); MEAN CORPUSCULAR HEMOGLOBIN 32.4 pg (27.0-34.0); MEAN CORPUSCULAR HGB CONC 33.7 g/dL (33.0-35.0); MEAN CORPUSCULAR VOLUME 96.2 fL (80.0-100.0); MEAN PLATELET VOLUME 8.6 fL (7.4-11.0); MONOCYTES % (AUTO) 9.5 % (0.0-13.0); NEUTROPHILS % (AUTO) 74.8 % (42.0-75.0); PLATELET COUNT 215 X10^3/uL (150.0-450.0); RED BLOOD COUNT 4.44 X10^6/uL (4.7-6.0); RED CELL DISTRIBUTION WIDTH 15.7 % (11.6-16.5); WHITE BLOOD COUNT 10.7 X10^3/uL (3.6-10.0)
[2022-10-17 05:32] LABS: ALBUMIN 2.3 g/dL (3.4-5.0); CALCIUM 7.7 mg/dL (8.5-10.1); CARBON DIOXIDE 25.9 mmol/L (21-32); COR CA(FOR HYPOALB) 9.1 mg/dL (8.5-10.1); CREATININE 2.34 mg/dL (0.70-1.30); POTASSIUM 5.1 mmol/L (3.5-5.1); TOTAL PROTEIN 5.1 g/dL (6.4-8.2)
[2022-10-17] MEDS: COREG TAB 6.25 MG PO SCH ×2 (08:50→20:23)
[2022-10-17] MEDS: ASPIRIN EC 81 MG PO SCH (08:50)
[2022-10-17] MEDS: SODIUM BICARBONATE TAB 650MG PO SCH ×2 (08:50→20:22)
[2022-10-17] MEDS: SINGULAIR TAB 10 MG PO SCH (08:50)
[2022-10-17] MEDS: HEMOCYTE-PLUS PO SCH ×2 (08:50→20:22)
[2022-10-17] MEDS: IMDUR PO SCH (08:51)
[2022-10-17] MEDS: CHRONULAC PO SCH ×2 (08:51→20:24)
[2022-10-17] MEDS: PROSCAR PO SCH (08:51)
[2022-10-17] MEDS: GENTAMICIN TOPICAL OINT TOP SCH ×2 (08:51→20:23)
[2022-10-17] MEDS: ALBUMIN HUMAN 25%- 100 ML 100 ML IV SCH ×2 (08:51→20:21)
[2022-10-17] MEDS: LANTUS SC SCH (08:52)
[2022-10-17] MEDS: LOVENOX INJ 30 MG SYR SC SCH (08:52)
[2022-10-17] MEDS: PULMICORT NEB TX 0.5 MG NEB SCH ×2 (09:38→21:00)
[2022-10-17] MEDS: MERREM VIAL 500 MG in NS 100 ML IV 100 ML IV SCH ×3 (10:02→21:52)
[2022-10-17] MEDS ORDERED: NS 100 ML IV 100 ML ONE (10:51)
[2022-10-17] MEDS: NovoLIN R (or HumuLIN R) SUBCUT PRN ×3 (12:42→21:40)
[2022-10-17] MEDS: VALIUM PO PRN (20:19)
[2022-10-17] MEDS: SNACK - Diabetic Appropriate PO SCH (20:24)
[2022-10-17] MEDS: PROVENTIL NEB TX 0.083% 2.5MG/ 3ML NEB PRN (21:00)
[2022-10-18 04:56] LABS: BASOPHILS # (AUTO) 0.2 X10^3/uL (0.0-0.1); BASOPHILS % (AUTO) 1.5 % (0.2-1.0); EOSINOPHILS # (AUTO) 0.4 x10^3/uL (0.0-0.2); EOSINOPHILS % (AUTO) 3.2 % (0.9-2.9); HEMATOCRIT 41.4 % (42.0-54.0); HEMOGLOBIN 13.9 g/dL (13.5-18.0); LYMPHOCYTES # (AUTO) 1.4 X10^3/uL (1.3-2.9); MEAN CORPUSCULAR HEMOGLOBIN 32.3 pg (27.0-34.0); MEAN CORPUSCULAR HGB CONC 33.6 g/dL (33.0-35.0); MEAN CORPUSCULAR VOLUME 96.3 fL (80.0-100.0); MEAN PLATELET VOLUME 8.2 fL (7.4-11.0); MONOCYTES % (AUTO) 8.8 % (0.0-13.0); NEUTROPHILS # (AUTO) 8.6 x10^3/uL (2.2-4.8); NEUTROPHILS % (AUTO) 74.5 % (42.0-75.0); PLATELET COUNT 220 X10^3/uL (150.0-450.0); RED CELL DISTRIBUTION WIDTH 15.7 % (11.6-16.5); WHITE BLOOD COUNT 11.5 X10^3/uL (3.6-10.0)
[2022-10-18 04:59] LABS: ALANINE AMINOTRANSFERASE 16 Units/L (12-78); ALBUMIN 2.6 g/dL (3.4-5.0); ALKALINE PHOSPHATASE 84 Units/L (46-116); ASPARTATE AMINO TRANSFERASE 17 Units/L (15-37); BLOOD UREA NITROGEN 71 mg/dL (7-18); CALCIUM 7.6 mg/dL (8.5-10.1); CARBON DIOXIDE 25.7 mmol/L (21-32); CHLORIDE 106 mmol/L (98-107); COR CA(FOR HYPOALB) 8.7 mg/dL (8.5-10.1); CREATININE 2.22 mg/dL (0.70-1.30); GLUCOSE 71 mg/dL (65-99); POTASSIUM 4.7 mmol/L (3.5-5.1); SODIUM 139 mmol/L (136-145); TOTAL PROTEIN 5.3 g/dL (6.4-8.2); eGFR NON BLACK RACES 30 (>60)
[2022-10-18] MEDS: MERREM VIAL 500 MG in NS 100 ML IV 100 ML IV SCH ×3 (05:34→21:41)
[2022-10-18] MEDS: PULMICORT NEB TX 0.5 MG NEB SCH ×2 (08:55→20:45)
[2022-10-18] MEDS: IMDUR PO SCH (09:03)
[2022-10-18] MEDS: SINGULAIR TAB 10 MG PO SCH (09:03)
[2022-10-18] MEDS: COREG TAB 6.25 MG PO SCH ×2 (09:03→20:18)
[2022-10-18] MEDS: LOVENOX INJ 30 MG SYR SC SCH (09:04)
[2022-10-18] MEDS: HEMOCYTE-PLUS PO SCH ×2 (09:04→20:17)
[2022-10-18] MEDS: ASPIRIN EC 81 MG PO SCH (09:04)
[2022-10-18] MEDS: PROSCAR PO SCH (09:04)
[2022-10-18] MEDS: SODIUM BICARBONATE TAB 650MG PO SCH ×2 (09:04→20:17)
[2022-10-18] MEDS: CHRONULAC PO SCH (09:04)
[2022-10-18] MEDS: GENTAMICIN TOPICAL OINT TOP SCH ×2 (09:04→20:19)
[2022-10-18] MEDS: ALBUMIN HUMAN 25%- 100 ML 100 ML IV SCH ×2 (09:05→20:19)
[2022-10-18] MEDS: LANTUS SC SCH (09:15)
[2022-10-18] MEDS ORDERED: ALDACTONE TAB 25 MG PO SCH (10:00)
[2022-10-18] MEDS: VALIUM PO PRN (20:17)
[2022-10-18] MEDS: SNACK - Diabetic Appropriate PO SCH (20:19)
[2022-10-19 05:24] LABS: BASOPHILS # (AUTO) 0.1 X10^3/uL (0.0-0.1); BASOPHILS % (AUTO) 1.2 % (0.2-1.0); EOSINOPHILS # (AUTO) 0.3 x10^3/uL (0.0-0.2); EOSINOPHILS % (AUTO) 2.5 % (0.9-2.9); HEMATOCRIT 40.7 % (42.0-54.0); HEMOGLOBIN 13.7 g/dL (13.5-18.0); LYMPHOCYTES % (AUTO) 8.3 % (21.0-51.0); MEAN CORPUSCULAR HEMOGLOBIN 32.4 pg (27.0-34.0); MEAN CORPUSCULAR HGB CONC 33.6 g/dL (33.0-35.0); MEAN CORPUSCULAR VOLUME 96.4 fL (80.0-100.0); MEAN PLATELET VOLUME 8.8 fL (7.4-11.0); MONOCYTES % (AUTO) 8.6 % (0.0-13.0); NEUTROPHILS # (AUTO) 9.6 x10^3/uL (2.2-4.8); NEUTROPHILS % (AUTO) 79.4 % (42.0-75.0); PLATELET COUNT 182 X10^3/uL (150.0-450.0); RED BLOOD COUNT 4.22 X10^6/uL (4.7-6.0); WHITE BLOOD COUNT 12.1 X10^3/uL (3.6-10.0)
[2022-10-19 05:36] LABS: ALBUMIN 2.5 g/dL (3.4-5.0); CALCIUM 7.5 mg/dL (8.5-10.1); CARBON DIOXIDE 25.4 mmol/L (21-32); COR CA(FOR HYPOALB) 8.7 mg/dL (8.5-10.1); CREATININE 2.24 mg/dL (0.70-1.30); POTASSIUM 4.8 mmol/L (3.5-5.1)
[2022-10-19] MEDS: MERREM VIAL 500 MG in NS 100 ML IV 100 ML IV SCH ×3 (05:37→21:33)
[2022-10-19] MEDS: NovoLIN R (or HumuLIN R) SUBCUT PRN ×3 (05:48→22:06)
[2022-10-19] MEDS: PULMICORT NEB TX 0.5 MG NEB SCH ×2 (08:15→20:24)
[2022-10-19] MEDS: PROVENTIL NEB TX 0.083% 2.5MG/ 3ML NEB PRN ×2 (08:17→20:24)
[2022-10-19] MEDS: CHRONULAC PO SCH (08:49)
[2022-10-19] MEDS: ASPIRIN EC 81 MG PO SCH (08:49)
[2022-10-19] MEDS: COREG TAB 6.25 MG PO SCH ×2 (08:50→20:19)
[2022-10-19] MEDS: IMDUR PO SCH (08:50)
[2022-10-19] MEDS: PROSCAR PO SCH (08:50)
[2022-10-19] MEDS: SINGULAIR TAB 10 MG PO SCH (08:50)
[2022-10-19] MEDS: SODIUM BICARBONATE TAB 650MG PO SCH ×2 (08:50→20:19)
[2022-10-19] MEDS: GENTAMICIN TOPICAL OINT TOP SCH ×2 (08:51→20:19)
[2022-10-19] MEDS: LANTUS SC SCH (08:52)
[2022-10-19] MEDS: LOVENOX INJ 30 MG SYR SC SCH (08:52)
[2022-10-19] MEDS: ALBUMIN HUMAN 25%- 100 ML 100 ML IV SCH ×2 (08:52→20:18)
[2022-10-19] MEDS ORDERED: DILAUDID INJ IVP PRN (08:53)
[2022-10-19] MEDS ORDERED: LASIX PO SCH (09:00)
[2022-10-19] MEDS ORDERED: ALDACTONE TAB 25 MG PO SCH (09:00)
[2022-10-19] MEDS ORDERED: LASIX IVP ONE (09:18)
[2022-10-19] MEDS ORDERED: ALDACTONE TAB 25 MG ONE (09:18)
[2022-10-19] MEDS: LASIX IVP SCH ×2 (09:20→21:33)
[2022-10-19] MEDS: HEMOCYTE-PLUS PO SCH ×2 (09:21→20:18)
[2022-10-19] MEDS ORDERED: NS 100 ML IV 100 ML ONE (09:28)
[2022-10-19] MEDS ORDERED: ZOFRAN INJ 4 MG VIAL IVP PRN (10:02)
[2022-10-19] MEDS ORDERED: ZOFRAN INJ 4 MG VIAL ONE (10:05)
[2022-10-19] MEDS: ALDACTONE TAB 25 MG PO SCH (10:47)
[2022-10-19 10:55] LABS: BILIRUBIN,URINE NEGATIVE (NEGATIVE); BLOOD/HEMOGLOBIN,URINE NEGATIVE (NEGATIVE); GLUCOSE, URINE NEGATIVE (NEGATIVE); KETONES,URINE NEGATIVE (NEGATIVE); LEUKOCYTE ESTERASE ,URINE 1+ (NEGATIVE); NITRITES,URINE NEGATIVE (NEGATIVE); PROTEIN,URINE NEGATIVE (NEGATIVE); UROBILINOGEN,URINE NORMAL (NORMAL)
[2022-10-19 11:10] LABS: APPEARANCE,URINE CLEAR (CLEAR); COLOR,URINE YELLOW (YELLOW)
[2022-10-19 11:11] LABS: BACTERIA,URINE TRACE /HPF (NEGATIVE); RBC,URINE 0-2 /HPF (0-3); SQUAMOUS EPITHELIAL CELL,UR FEW /HPF (NEGATIVE)
--- NOTE | 2022-10-19 14:49 | PCM.PROG ---
Progress Note - Progress Note for Day of Date of Exam: 10/19/22 - Subjective Subjective: IS A 82 YEAR OLD PATIENT OF OURS. HE IS CURRENTLY INPATIENT STATUS FOR TREATMENT OF BILATERAL LOWER EXTREMITY CELLULITIS, CELLULITIS OF RIGHT ELBOW, E.COLI AND KLEBSIELLA UTI, ANASARCA, ACUTE ON CHRONIC RENAL FAILURE, AND GENERALIZED WEAKNESS. HE HAS A PMH OF TYPE 2 DM, HYPERLIPDEMI A, ESSENTIAL HYPERTENSION, CAD, COPD, AND CHF. TODAY, HE IS ALERT AND ORIENTED, SITTING ON THE SIDE OF THE BED ON MORNING ROUNDS. HE COMPLAINS OF PERSISTENT SWELLING AND WEEPING OF THE LOWER EXTREMITIES. HE ALSO COMPLAINS OF SEVERE SWELLING AND DISCOMFORT OF THE SCROTUM. HE DENIES SIGNIFICANT IMPROVEMENT IN SWELLING SINCE WE SAW HIM ON TUESDAY. NURSING STAFF REPORTS THAT HE HAS HAD SOME CONSTIPATION OVER THE WEEKEND, BUT WAS ABLE TO HAVE A LARGE BOWEL MOVEMENT YESTERDAY. UPON EXAMINATION, HE IS BRADYCARDIC WITH HR IN THE 50s. RHYTHM IS REGULAR. BILATERAL LUNGS ARE NOTED WITH DIMINISHED LUNG SOUNDS THROUGHOUT. ABDOMEN IS ROUND, SOFT, AND NON-TENDER WITH NORMAL BOWEL SOUNDS NOTED IN ALL QUADRANTS. HE DOES HAVE DIFFUSE SWELLING OF THE UPPER AND LOWER EXTREMITIES. 2+ PITTING EDEMA IS NOTED TO THE UPPER EXTREMITIES. BILATERAL LOWER EXTREMITIES ARE NOTED WITH 3+ PITTING EDEMA. DRESSING TO THE RIGHT ELBOW IS DRY AND INTACT. WE DID NOT REMOVE THE DRESSING TODAY, BUT THE REDNESS SURROUNDING THE AREA HAS DECREASED SINCE TUESDAY. THERE CONTINUES TO BE ERYTHEMA AND WEEPING OF THE LOWER EXTREMITIES. MODERATE EDEMA OF THE SCROTUM IS NOTED. PATIENT REPORTS THAT WHEN HE ELEVATES HIS LOWER EXTREMITIES, THE EDEMA OF THE SCROTUM GETS WORSE. PATIENT DOES COMPLAIN OF TENDERNESS OF THE SCROTUM AND LOWER EXTREMITIES WITH PALPATION. HIS VITALS THIS MORNING ARE: 98.1-50-22-99%-135/63. LABS WERE OBTAINED. WBC 12.1, RBC 4.22, HGB 13.7, HCT 40.7, PLT COUNT 182, WODIUM 138, POTASSIUM 4.8, CHLORIDE 105, BUN 74, CREATININE 2.24, GLUCOSE 195, CALCIUM 7.5, AST 21, ALT 16, ALK PHOS 89, TOTAL PROTEIN 5.0, ALBUMIN 2.5. HE IS CURRENTLY RECEIVING ALBUMIN 25% IV BID, LOVENOX 30MG SC DAILY, MEROPENEM 500MG IV Q8H, GENTAMICIN OINTMENT TO LEGS BID, LACTULOSE 30ML DAILY, VALIUM 2.5MG PO Q12H, OTBS ACHS, HUMULIN R SLIDING SCALE, ALBUTEROL NEBS PRN, PULMICORT NEBS BID. HIS HOME MEDICATIONS OF ASPIRIN, COREG, PROSCAR, LANTUS, IMDUR, SINGULAIR, HEMOCYTE PLUS, ALDACTONE, FUROSEMIDE, AND SODIUM BICARBONATE WERE RESUMED. ALTHOUGH HIS BUN AND CREATININE IS ELEVATED, HE IS PRETTY MUCH BACK AT HIS BASELINE. SINCE HE IS AT BASELINE AND STABLE, WE WILL CHANGE HIS LASIX TO 40MG BID, TO BE ADMINISTERED AFTER THE ALBUMIN. WE WILL ALSO ADD DILAUDID 1MG IV Q4H PRN PAIN. OTHERWISE, WE PLAN TO FOLLOW-UP WITH AM LABS AND CONTINUE TO MONITOR. TIME SPENT ON CLINICAL ASSESSMENT, REVIEWING LABS AND IMAGING, DECISION MAKING, AND DOCUMENTATION GREATER THAN 45 MINUTES. - Past Medical Family Social History Past Med/Fam/Surg Hx: No changes since H&P Allergies: Allergies acetaminophen Allergy (Verified 04/11/18 18:00) azithromycin Allergy (Verified 04/11/18 18:00) clindamycin Allergy (Verified 04/11/18 18:00) hydroxyzine [From Atarax] Allergy (Verified 04/11/18 18:00) pseudoephedrine Allergy (Verified 04/11/18 18:00) ramipril Allergy (Verified 04/11/18 18:00) rosiglitazone Allergy (Verified 04/11/18 18:00) VISTARIL Adverse Reaction (Uncoded 11/05/16 15:46) - Review of Systems ROS: No change since H&P - Vital Signs and I&O's Vital Signs: Temperature 97.7 F Temperature 97.5 F Pulse Rate [Left Brachial] 50 Pulse Rate 58 Pulse Rate 50 Respiratory Rate 20 Respiratory Rate 18 Blood Pressure [Left Arm] 180/70 Blood Pressure [Right Arm] 143/65 Blood Pressure 117/47 O2 Sat by Pulse Oximetry 94 O2 Sat by Pulse Oximetry 95 Intake and Output: Intake & Output 10/17/22 10/18/22 10/19/22 10/20/22 11:59 11:59 11:59 11:59 Intake Total 1690 / 1690 1712 / 1712 2340 / 2340 Output Total 200 / 200 100 / 100 250 / 250 Balance 1490 / 1490 1612 / 1612 2089 - Physical Exam Oriented: Normal Eyes: Normal Ear: Normal Nose: Normal Throat: Normal Respiratory: Generalized, Diminished Cardiovascular: Edema (LOWER EXTREMITIES 3+ PITTING, UPPER EXTREMITIES 2+ PITTING ) : Normal Auscultation: Bowel Sounds: Normal Palpation: Normal Tenderness: Normal Skin: Red (BILATERAL LOWER EXTREMITIES AND RIGHT ELBOW), Tender, Wound (DRAINING BLISTERS TO BILATERAL LOWER EXTREMITIES, LEFT HEEL ULCER, RIGHT ELBOW WOUND ) Musculoskeletal: Right, Left, Leg, Swelling, Tender Psychiatric: Anxiety Mood Description: Anxious Affect: Normal Speech Pattern: Clear, Appropriate - Laboratory and Diagnostics Result Diagrams: 10/19/22 05:05 10/19/22 05:05 Labs: 10/14/22 18:30 Elbow - Right Wound Gram Stain - Final 10/14/22 18:30 Elbow - Right Wound Culture - Final 10/14/22 13:40 Urine,Clean Catch Urine Culture - Final Escherichia Coli Klebsiella Pneumoniae 10/14/22 15:15 Blood Blood Culture - Preliminary 10/14/22 15:05 Blood Blood Culture - Preliminary Laboratory WBC 12.1 X10^3/uL (3.6-10.0) H 10/19/22 05:05 RBC 4.22 X10^6/uL (4.7-6.0) L 10/19/22 05:05 Hgb 13.7 g/dL (13.5-18.0) 10/19/22 05:05 Hct 40.7 % (42.0-54.0) L 10/19/22 05:05 MCV 96.4 fL (80.0-100.0) 10/19/22 05:05 MCH 32.4 pg (27.0-34.0) 10/19/22 05:05 MCHC 33.6 g/dL (33.0-35.0) 10/19/22 05:05 RDW 16.0 % (11.6-16.5) 10/19/22 05:05 Plt Count 182 X10^3/uL (150.0-450.0) 10/19/22 05:05 MPV 8.8 fL (7.4-11.0) 10/19/22 05:05 Neut % (Auto) 79.4 % (42.0-75.0) H 10/19/22 05:05 Lymph % (Auto) 8.3 % (21.0-51.0) L 10/19/22 05:05 [place] % (Auto) 8.6 % (0.0-13.0) 10/19/22 05:05 Eos % (Auto) 2.5 % (0.9-2.9) 10/19/22 05:05 Baso % (Auto) 1.2 % (0.2-1.0) H 10/19/22 05:05 Neut # (Auto) 9.6 x10^3/uL (2.2-4.8) H 10/19/22 05:05 Lymph # (Auto) 1.0 X10^3/uL (1.3-2.9) L 10/19/22 05:05 [place] # (Auto) 1.0 x10^3/uL (0.3-0.8) H 10/19/22 05:05 Eos # (Auto) 0.3 x10^3/uL (0.0-0.2) H 10/19/22 05:05 Baso # (Auto) 0.1 X10^3/uL (0.0-0.1) 10/19/22 05:05 Absolute Nucleated RBC 0.0 /100WBC 10/19/22 05:05 Sodium 138 mmol/L (136-145) 10/19/22 05:05 Corrected Sodium 140 mmol/L (136-145) 10/19/22 05:05 Potassium 4.8 mmol/L (3.5-5.1) 10/19/22 05:05 Chloride 105 mmol/L (98-107) 10/19/22 05:05 Carbon Dioxide 25.4 mmol/L (21-32) 10/19/22 05:05 BUN 74 mg/dL (7-18) H 10/19/22 05:05 Creatinine 2.24 mg/dL (0.70-1.30) H 10/19/22 05:05 Est GFR (MDRD) Af Amer 36 (>60) L 10/19/22 05:05 Est GFR (MDRD) Non-Af 30 (>60) L 10/19/22 05:05 Glucose 195 mg/dL (65-99) H 10/19/22 05:05 POC Glucose (mg/dL) 164 mg/dL (65-99) H 10/19/22 11:31 Calcium 7.5 mg/dL (8.5-10.1) L 10/19/22 05:05 Corrected Calcium 8.7 mg/dL (8.5-10.1) 10/19/22 05:05 Total Bilirubin 0.60 mg/dL (0.2-1.0) 10/19/22 05:05 AST 21 Units/L (15-37) 10/19/22 05:05 ALT 16 Units/L (12-78) 10/19/22 05:05 Alkaline Phosphatase 89 Units/L (46-116) 10/19/22 05:05 Ammonia 29 umol/L (11-32) 10/14/22 15:05 Creatine Kinase 84 Units/L (39-308) 10/14/22 15:05 Troponin I High Sens 35.9 ng/L (4.0-60.0) 10/14/22 15:05 B-Natriuretic Peptide 305 pg/mL (0-79) H 10/14/22 15:05 Total Protein 5.0 g/dL (6.4-8.2) L 10/19/22 05:05 Albumin 2.5 g/dL (3.4-5.0) L 10/19/22 05:05 Globulin 2.5 g/dL (2.5-4.5) 10/19/22 05:05 Albumin/Globulin Ratio 1.0 Ratio (1.1-2.1) L 10/19/22 05:05 Specimen Type Clean catch urine 10/19/22 10:25 Urine Color Yellow (YELLOW) 10/19/22 10:25 Urine Appearance Clear (CLEAR) 10/19/22 10:25 Urine pH 5.0 (5.0 - 8.0) 10/19/22 10:25 Ur Specific [place] 1.020 (1.000-1.030) 10/19/22 10:25 Urine Protein Negative (NEGATIVE) 10/19/22 10:25 Urine Glucose (UA) Negative (NEGATIVE) 10/19/22 10:25 Urine Ketones Negative (NEGATIVE) 10/19/22 10:25 Urine Blood Negative (NEGATIVE) 10/19/22 10:25 Urine Nitrite Negative (NEGATIVE) 10/19/22 10:25 Urine Bilirubin Negative (NEGATIVE) 10/19/22 10:25 Urine Urobilinogen Normal (NORMAL) 10/19/22 10:25 Ur Leukocyte Esterase 1+ (NEGATIVE) 10/19/22 10:25 Urine RBC 0-2 /HPF (0-3) 10/19/22 10:25 Urine WBC 0-2 /HPF (0-5) 10/19/22 10:25 Ur Squamous Epith Cells Few /HPF (NEGATIVE) 10/19/22 10:25 Amorphous Sediment Trace /HPF (NEGATIVE) 10/19/22 10:25 Urine Bacteria Trace /HPF (NEGATIVE) 10/19/22 10:25 Urine Mucus Rare /HPF (NEGATIVE) 10/19/22 10:25 Ur Culture Indicated? No/not indicated 10/19/22 10:25 - Plan (1) Bilateral lower leg cellulitis Status: Acute Plan: WOUND CARE, LASIX 40MG IV BID, ALBUMIN 25% IV BID, LOVENOX 30MG SC DAILY, MEROPENEM 500MG IV Q8H, GENTAMICIN OINTMENT TO LEGS BID, LACTULOSE 30ML DAILY, VALIUM 2.5MG PO Q12H, OTBS ACHS, HUMULIN R SLIDING SCALE, ALBUTEROL NEBS PRN, PULMICORT NEBS BID (2) Cellulitis of right elbow Status: Acute (3) Anasarca Status: Acute (4) Acute on chronic renal failure Status: Acute Qualifiers: Acute renal failure type: unspecified Chronic kidney disease stage: stage 4 (severe) Qualified Code(s): N17.9 - Acute kidney failure, unspecified; N18.4 - Chronic kidney disease, stage 4 (severe) (5) Generalized weakness Status: Acute (6) Shortness of breath Status: Acute (7) Hyperlipidemia Status: Chronic Qualifiers: Hyperlipidemia type: mixed hyperlipidemia Qualified Code(s): E78.2 - Mixed hyperlipidemia (8) Diabetes mellitus, type 2 Status: Chronic Qualifiers: Diabetes mellitus terminal operator insulin use: with terminal operator use Diabetes mellitus complication status: with unspecified complications Plan: RESUME HOME MEDS (9) Essential hypertension Status: Chronic (10) CAD (coronary artery disease) Status: Chronic Qualifiers: Coronary Disease-Associated Artery/Lesion type: [place] artery [place] vs. transplanted heart: [place] heart Associated angina: without angina Qualified Code(s): I25.10 - Atherosclerotic heart disease of [place] coronary artery withou t angina pectoris Plan: RESUME HOME MEDS (11) COPD (chronic obstructive pulmonary disease) Status: Chronic Qualifiers: COPD type: chronic bronchitis Plan: RESUME HOME MEDS (12) CHF (congestive heart failure) Status: Chronic Plan: RESUME HOME MEDS
[2022-10-19] MEDS: VALIUM PO PRN (20:19)
[2022-10-19] MEDS: SNACK - Diabetic Appropriate PO SCH (20:20)
[2022-10-20 05:09] LABS: BASOPHILS # (AUTO) 0.1 X10^3/uL (0.0-0.1); BASOPHILS % (AUTO) 0.7 % (0.2-1.0); EOSINOPHILS # (AUTO) 0.3 x10^3/uL (0.0-0.2); HEMATOCRIT 40.6 % (42.0-54.0); HEMOGLOBIN 13.6 g/dL (13.5-18.0); LYMPHOCYTES # (AUTO) 0.9 X10^3/uL (1.3-2.9); LYMPHOCYTES % (AUTO) 6.2 % (21.0-51.0); MEAN CORPUSCULAR HEMOGLOBIN 32.6 pg (27.0-34.0); MEAN CORPUSCULAR HGB CONC 33.5 g/dL (33.0-35.0); MEAN CORPUSCULAR VOLUME 97.1 fL (80.0-100.0); MEAN PLATELET VOLUME 8.8 fL (7.4-11.0); MONOCYTES # (AUTO) 1.3 x10^3/uL (0.3-0.8); MONOCYTES % (AUTO) 8.9 % (0.0-13.0); NEUTROPHILS # (AUTO) 12.2 x10^3/uL (2.2-4.8); NEUTROPHILS % (AUTO) 82.2 % (42.0-75.0); PLATELET COUNT 187 X10^3/uL (150.0-450.0); RED BLOOD COUNT 4.18 X10^6/uL (4.7-6.0); RED CELL DISTRIBUTION WIDTH 15.8 % (11.6-16.5); WHITE BLOOD COUNT 14.9 X10^3/uL (3.6-10.0)
[2022-10-20 05:17] LABS: ALBUMIN 2.7 g/dL (3.4-5.0); CALCIUM 7.6 mg/dL (8.5-10.1); CARBON DIOXIDE 25.8 mmol/L (21-32); COR CA(FOR HYPOALB) 8.6 mg/dL (8.5-10.1); CREATININE 2.55 mg/dL (0.70-1.30); POTASSIUM 5.1 mmol/L (3.5-5.1); TOTAL PROTEIN 5.1 g/dL (6.4-8.2)
[2022-10-20] MEDS: MERREM VIAL 500 MG in NS 100 ML IV 100 ML IV SCH ×3 (05:49→22:12)
[2022-10-20] MEDS: NovoLIN R (or HumuLIN R) SUBCUT PRN ×2 (06:19→11:57)
[2022-10-20] MEDS: PULMICORT NEB TX 0.5 MG NEB SCH ×3 (07:58→20:04)
[2022-10-20] MEDS: ALBUMIN HUMAN 25%- 100 ML 100 ML IV SCH ×2 (08:38→20:49)
[2022-10-20] MEDS: HEMOCYTE-PLUS PO SCH ×2 (08:39→20:48)
[2022-10-20] MEDS: ASPIRIN EC 81 MG PO SCH (08:39)
[2022-10-20] MEDS: LOVENOX INJ 30 MG SYR SC SCH (08:39)
[2022-10-20] MEDS: SODIUM BICARBONATE TAB 650MG PO SCH ×2 (08:40→20:47)
[2022-10-20] MEDS: ALDACTONE TAB 25 MG PO SCH (08:40)
[2022-10-20] MEDS: COREG TAB 6.25 MG PO SCH ×2 (08:40→20:47)
[2022-10-20] MEDS: IMDUR PO SCH (08:40)
[2022-10-20] MEDS: SINGULAIR TAB 10 MG PO SCH (08:40)
[2022-10-20] MEDS: LASIX IVP SCH ×2 (08:41→20:48)
[2022-10-20] MEDS: PROSCAR PO SCH (08:41)
[2022-10-20] MEDS: LANTUS SC SCH (08:41)
[2022-10-20] MEDS: CHRONULAC PO SCH (09:39)
[2022-10-20] MEDS: GENTAMICIN TOPICAL OINT TOP SCH ×2 (09:40→20:49)
[2022-10-20 16:36] LABS: BILIRUBIN,URINE NEGATIVE (NEGATIVE); BLOOD/HEMOGLOBIN,URINE 4+ (NEGATIVE); GLUCOSE, URINE NEGATIVE (NEGATIVE); KETONES,URINE NEGATIVE (NEGATIVE); LEUKOCYTE ESTERASE ,URINE 1+ (NEGATIVE); NITRITES,URINE NEGATIVE (NEGATIVE); PROTEIN,URINE NEGATIVE (NEGATIVE); UROBILINOGEN,URINE NORMAL (NORMAL)
[2022-10-20 16:41] LABS: APPEARANCE,URINE CLEAR (CLEAR); COLOR,URINE YELLOW (YELLOW)
[2022-10-20 16:44] LABS: BACTERIA,URINE 1+ /HPF (NEGATIVE); SQUAMOUS EPITHELIAL CELL,UR RARE /HPF (NEGATIVE)
--- NOTE | 2022-10-20 18:00 | PCM.PROG ---
Progress Note - Progress Note for Day of Date of Exam: 10/20/22 - Subjective Subjective: IS A 82 YEAR OLD PATIENT OF OURS. HE IS CURRENTLY INPATIENT STATUS FOR TREATMENT OF BILATERAL LOWER EXTREMITY CELLULITIS, CELLULITIS OF RIGHT ELBOW, E.COLI AND KLEBSIELLA UTI, ANASARCA, ACUTE ON CHRONIC RENAL FAILURE, AND GENERALIZED WEAKNESS. HE HAS A PMH OF TYPE 2 DM, HYPERLIPDEMI A, ESSENTIAL HYPERTENSION, CAD, COPD, AND CHF. TODAY, HE IS ALERT AND ORIENTED, SITTING ON THE SIDE OF THE BED ON MORNING ROUNDS. HE COMPLAINS OF PERSISTENT SWELLING AND WEEPING OF THE LOWER EXTREMITIES. HE ALSO COMPLAINS OF SEVERE SWELLING AND DISCOMFORT OF THE SCROTUM. HE REPORTS THAT DESPITE THE INCREASE IN LASIX, HE HASNT BEEN ABLE TO URINATE MUCH. HE DENIES SIGNIFICANT IMPROVEMENT IN SWELLING OF THE SCROTUM SINCE WE SAW HIM YESTERDAY. UPON EXAMINATION, HE IS BRADYCARDIC WITH HR IN THE 50s. RHYTHM IS REGULAR. BILATERAL LUNGS ARE NOTED WITH DIMINISHED LUNG SOUNDS THROUGHOUT. ABDOMEN IS ROUND, SOFT, AND NON-TENDER WITH NORMAL BOWEL SOUNDS NOTED IN ALL QUADRANTS. HE CONTINUES TO HAVE DIFFUSE SWELLING OF THE UPPER AND LOWER EXTREMITIES. 1+ PITTING EDEMA IS NOTED TO THE UPPER EXTREMITIES. BILATERAL LOWER EXTREMITIES ARE NOTED WITH 2+ PITTING EDEMA. DRESSING TO THE RIGHT ELBOW IS DRY AND INTACT. THERE CONTINUES TO BE ERYTHEMA AND WEEPING OF THE LOWER EXTREMITIES. MODERATE EDEMA OF THE SCROTUM IS NOTED. PATIENT DOES COMPLAIN OF TENDERNESS OF THE SCROTUM AND LOWER EXTREMITIES WITH PALPATION. HIS VITALS THIS MORNING ARE: 97.5-52-20-96%-152/65. LABS WERE OBTAINED. WBC 14.9, RBC 4.18, HGB 13.6, HCT 40.6, PLT COUNT 187, SODIUM 138, POTASSIUM 5.1, CHLORIDE 104, BUN 82, CREATININE 2.55, GLUCOSE 167, CALCIUM 7.6, AST 15, ALT 14, ALK PHOS 83, TOTAL PROTEIN 5.1, ALBUMIN 2.4. HE IS CURRENTLY RECEIVING ALBUMIN 25% IV BID, LASIX 40MG IV BID, LOVENOX 30MG SC DAILY, MEROPENEM 500MG IV Q8H, GENTAMICIN OINTMENT TO LEGS BID, LACTULOSE 30ML DAILY, VALIUM 2.5MG PO Q12H, OTBS ACHS, HUMULIN R SLIDING SCALE, ALBUTEROL NEBS PRN, PULMICORT NEBS BID. HIS HOME MEDICATIONS OF ASPIRIN, COREG, PROSCAR, LANTUS, IMDUR, SINGULAIR, HEMOCYTE PLUS, ALDACTONE, FUROSEMIDE, AND SODIUM BICARBONATE WERE RESUMED. WE WILL CONTINUE WITH CURRENT PLAN OF CARE TODAY AND INSERT A SMITH CATHETER. OTHERWISE, WE PLAN TO FOLLOW-UP WITH AM LABS AND CONTINUE TO MONITOR. TIME SPENT ON CLINICAL ASSESSMENT, REVIEWING LABS AND IMAGING, DECISION MAKING, AND DOCUMENTATION GREATER THAN 45 MINUTES. - Past Medical Family Social History Past Med/Fam/Surg Hx: No changes since H&P Allergies: Allergies acetaminophen Allergy (Verified 04/11/18 18:00) azithromycin Allergy (Verified 04/11/18 18:00) clindamycin Allergy (Verified 04/11/18 18:00) hydroxyzine [From Atarax] Allergy (Verified 04/11/18 18:00) pseudoephedrine Allergy (Verified 04/11/18 18:00) ramipril Allergy (Verified 04/11/18 18:00) rosiglitazone Allergy (Verified 04/11/18 18:00) VISTARIL Adverse Reaction (Uncoded 11/05/16 15:46) - Review of Systems ROS: No change since H&P - Vital Signs and I&O's Vital Signs: Temperature 98.0 F Temperature 97.5 F Pulse Rate [Left Brachial] 54 Pulse Rate 62 Pulse Rate 50 Respiratory Rate 20 Respiratory Rate 18 Blood Pressure [Left Arm] 180/70 Blood Pressure [Right Arm] 137/62 Blood Pressure 117/47 O2 Sat by Pulse Oximetry 92 O2 Sat by Pulse Oximetry 95 Intake and Output: Intake & Output 10/18/22 10/19/22 10/20/22 10/21/22 11:59 11:59 11:59 11:59 Intake Total 1712 / 1712 2340 / 2340 1560 / 1560 640 / 640 Output Total 100 / 100 250 / 250 360 / 360 290 / 290 Balance 1612 / 1612 2090 / 2090 1200 / 1200 350 / 350 - Physical Exam Oriented: Normal Eyes: Normal Ear: Normal Nose: Normal Throat: Normal Respiratory: Generalized, Diminished Cardiovascular: Edema (LOWER EXTREMITIES 2+ PITTING, UPPER EXTREMITIES 1+ PITTING ) : Normal Auscultation: Bowel Sounds: Normal Palpation: Normal Tenderness: Normal Skin: Red (BILATERAL LOWER EXTREMITIES AND RIGHT ELBOW), Tender, Wound (DRAINING BLISTERS TO BILATERAL LOWER EXTREMITIES, LEFT HEEL ULCER, RIGHT ELBOW WOUND ) Musculoskeletal: Right, Left, Leg, Swelling, Tender Psychiatric: Anxiety Mood Description: Anxious Affect: Normal Speech Pattern: Clear, Appropriate - Laboratory and Diagnostics Result Diagrams: 10/20/22 04:55 10/20/22 04:55 Labs: 10/14/22 15:15 Blood Blood Culture - Final 10/14/22 15:05 Blood Blood Culture - Final 10/14/22 18:30 Elbow - Right Wound Gram Stain - Final 10/14/22 18:30 Elbow - Right Wound Culture - Final 10/14/22 13:40 Urine,Clean Catch Urine Culture - Final Escherichia Coli Klebsiella Pneumoniae Laboratory WBC 14.9 X10^3/uL (3.6-10.0) H 10/20/22 04:55 RBC 4.18 X10^6/uL (4.7-6.0) L 10/20/22 04:55 Hgb 13.6 g/dL (13.5-18.0) 10/20/22 04:55 Hct 40.6 % (42.0-54.0) L 10/20/22 04:55 MCV 97.1 fL (80.0-100.0) 10/20/22 04:55 MCH 32.6 pg (27.0-34.0) 10/20/22 04:55 MCHC 33.5 g/dL (33.0-35.0) 10/20/22 04:55 RDW 15.8 % (11.6-16.5) 10/20/22 04:55 Plt Count 187 X10^3/uL (150.0-450.0) 10/20/22 04:55 MPV 8.8 fL (7.4-11.0) 10/20/22 04:55 Neut % (Auto) 82.2 % (42.0-75.0) H 10/20/22 04:55 Lymph % (Auto) 6.2 % (21.0-51.0) L 10/20/22 04:55 [place] % (Auto) 8.9 % (0.0-13.0) 10/20/22 04:55 Eos % (Auto) 2.0 % (0.9-2.9) 10/20/22 04:55 Baso % (Auto) 0.7 % (0.2-1.0) 10/20/22 04:55 Neut # (Auto) 12.2 x10^3/uL (2.2-4.8) H 10/20/22 04:55 Lymph # (Auto) 0.9 X10^3/uL (1.3-2.9) L 10/20/22 04:55 [place] # (Auto) 1.3 x10^3/uL (0.3-0.8) H 10/20/22 04:55 Eos # (Auto) 0.3 x10^3/uL (0.0-0.2) H 10/20/22 04:55 Baso # (Auto) 0.1 X10^3/uL (0.0-0.1) 10/20/22 04:55 Absolute Nucleated RBC 0.0 /100WBC 10/20/22 04:55 Sodium 138 mmol/L (136-145) 10/20/22 04:55 Corrected Sodium 140 mmol/L (136-145) 10/20/22 04:55 Potassium 5.1 mmol/L (3.5-5.1) 10/20/22 04:55 Chloride 104 mmol/L (98-107) 10/20/22 04:55 Carbon Dioxide 25.8 mmol/L (21-32) 10/20/22 04:55 BUN 82 mg/dL (7-18) H 10/20/22 04:55 Creatinine 2.55 mg/dL (0.70-1.30) H 10/20/22 04:55 Est GFR (MDRD) Af Amer 31 (>60) L 10/20/22 04:55 Est GFR (MDRD) Non-Af 26 (>60) L 10/20/22 04:55 Glucose 167 mg/dL (65-99) H 10/20/22 04:55 POC Glucose (mg/dL) 138 mg/dL (65-99) H 10/20/22 16:32 Calcium 7.6 mg/dL (8.5-10.1) L 10/20/22 04:55 Corrected Calcium 8.6 mg/dL (8.5-10.1) 10/20/22 04:55 Total Bilirubin 0.60 mg/dL (0.2-1.0) 10/20/22 04:55 AST 15 Units/L (15-37) 10/20/22 04:55 ALT 14 Units/L (12-78) 10/20/22 04:55 Alkaline Phosphatase 83 Units/L (46-116) 10/20/22 04:55 Ammonia 29 umol/L (11-32) 10/14/22 15:05 Creatine Kinase 84 Units/L (39-308) 10/14/22 15:05 Troponin I High Sens 35.9 ng/L (4.0-60.0) 10/14/22 15:05 B-Natriuretic Peptide 305 pg/mL (0-79) H 10/14/22 15:05 Total Protein 5.1 g/dL (6.4-8.2) L 10/20/22 04:55 Albumin 2.7 g/dL (3.4-5.0) L 10/20/22 04:55 Globulin 2.4 g/dL (2.5-4.5) L 10/20/22 04:55 Albumin/Globulin Ratio 1.1 Ratio (1.1-2.1) 10/20/22 04:55 Specimen Type Catherized urine 10/20/22 16:20 Urine Color Yellow (YELLOW) 10/20/22 16:20 Urine Appearance Clear (CLEAR) 10/20/22 16:20 Urine pH 5.0 (5.0 - 8.0) 10/20/22 16:20 Ur Specific [place] 1.015 (1.000-1.030) 10/20/22 16:20 Urine Protein Negative (NEGATIVE) 10/20/22 16:20 Urine Glucose (UA) Negative (NEGATIVE) 10/20/22 16:20 Urine Ketones Negative (NEGATIVE) 10/20/22 16:20 Urine Blood 4+ (NEGATIVE) 10/20/22 16:20 Urine Nitrite Negative (NEGATIVE) 10/20/22 16:20 Urine Bilirubin Negative (NEGATIVE) 10/20/22 16:20 Urine Urobilinogen Normal (NORMAL) 10/20/22 16:20 Ur Leukocyte Esterase 1+ (NEGATIVE) 10/20/22 16:20 Urine RBC 10-20 /HPF (0-3) A 10/20/22 16:20 Urine WBC 3-5 /HPF (0-5) 10/20/22 16:20 Ur Squamous Epith Cells Rare /HPF (NEGATIVE) 10/20/22 16:20 Amorphous Sediment Trace /HPF (NEGATIVE) 10/19/22 10:25 Urine Bacteria 1+ /HPF (NEGATIVE) 10/20/22 16:20 Urine Mucus Rare /HPF (NEGATIVE) 10/19/22 10:25 Ur Culture Indicated? Yes/culture set up 10/20/22 16:20 - Plan (1) Bilateral lower leg cellulitis Status: Acute Plan: WOUND CARE, LASIX 40MG IV BID, ALBUMIN 25% IV BID, LOVENOX 30MG SC DAILY, MEROPENEM 500MG IV Q8H, GENTAMICIN OINTMENT TO LEGS BID, LACTULOSE 30ML DAILY, VALIUM 2.5MG PO Q12H, OTBS ACHS, HUMULIN R SLIDING SCALE, ALBUTEROL NEBS PRN, PULMICORT NEBS BID (2) Cellulitis of right elbow Status: Acute (3) Anasarca Status: Acute (4) Acute on chronic renal failure Status: Acute Qualifiers: Acute renal failure type: unspecified Chronic kidney disease stage: stage 4 (severe) Qualified Code(s): N17.9 - Acute kidney failure, unspecified; N18.4 - Chronic kidney disease, stage 4 (severe) (5) Generalized weakness Status: Acute (6) Shortness of breath Status: Acute (7) Hyperlipidemia Status: Chronic Qualifiers: Hyperlipidemia type: mixed hyperlipidemia Qualified Code(s): E78.2 - Mixed hyperlipidemia (8) Diabetes mellitus, type 2 Status: Chronic Qualifiers: Diabetes mellitus bed bug exterminator insulin use: with bed bug exterminator use Diabetes mellitus complication status: with unspecified complications Plan: RESUME HOME MEDS (9) Essential hypertension Status: Chronic (10) CAD (coronary artery disease) Status: Chronic Qualifiers: Coronary Disease-Associated Artery/Lesion type: [place] artery [place] vs. transplanted heart: [place] heart Associated angina: without angina Qualified Code(s): I25.10 - Atherosclerotic heart disease of [place] coronary artery without angina pectoris Plan: RESUME HOME MEDS (11) COPD (chronic obstructive pulmonary disease) Status: Chronic Qualifiers: COPD type: chronic bronchitis Plan: RESUME HOME MEDS (12) CHF (congestive heart failure) Status: Chronic Plan: RESUME HOME MEDS
[2022-10-20] MEDS: PROVENTIL NEB TX 0.083% 2.5MG/ 3ML NEB PRN (20:04)
[2022-10-20] MEDS: SNACK - Diabetic Appropriate PO SCH (20:49)
[2022-10-20] MEDS: VALIUM PO PRN (20:51)
[2022-10-21] MEDS: MERREM VIAL 500 MG in NS 100 ML IV 100 ML IV SCH ×3 (05:15→21:48)
[2022-10-21 06:04] LABS: BASOPHILS # (AUTO) 0.1 X10^3/uL (0.0-0.1); BASOPHILS % (AUTO) 0.7 % (0.2-1.0); EOSINOPHILS # (AUTO) 0.2 x10^3/uL (0.0-0.2); EOSINOPHILS % (AUTO) 1.3 % (0.9-2.9); HEMATOCRIT 39.1 % (42.0-54.0); HEMOGLOBIN 13.1 g/dL (13.5-18.0); LYMPHOCYTES # (AUTO) 1.2 X10^3/uL (1.3-2.9); LYMPHOCYTES % (AUTO) 7.9 % (21.0-51.0); MEAN CORPUSCULAR HEMOGLOBIN 32.4 pg (27.0-34.0); MEAN CORPUSCULAR HGB CONC 33.5 g/dL (33.0-35.0); MEAN CORPUSCULAR VOLUME 96.7 fL (80.0-100.0); MEAN PLATELET VOLUME 9.2 fL (7.4-11.0); MONOCYTES # (AUTO) 1.3 x10^3/uL (0.3-0.8); MONOCYTES % (AUTO) 8.4 % (0.0-13.0); NEUTROPHILS # (AUTO) 12.4 x10^3/uL (2.2-4.8); NEUTROPHILS % (AUTO) 81.7 % (42.0-75.0); PLATELET COUNT 186 X10^3/uL (150.0-450.0); RED BLOOD COUNT 4.05 X10^6/uL (4.7-6.0); RED CELL DISTRIBUTION WIDTH 15.4 % (11.6-16.5); WHITE BLOOD COUNT 15.2 X10^3/uL (3.6-10.0)
[2022-10-21 06:18] LABS: ALANINE AMINOTRANSFERASE 14 Units/L (12-78); ALBUMIN 2.7 g/dL (3.4-5.0); ALKALINE PHOSPHATASE 72 Units/L (46-116); ASPARTATE AMINO TRANSFERASE 19 Units/L (15-37); BLOOD UREA NITROGEN 91 mg/dL (7-18); CALCIUM 7.9 mg/dL (8.5-10.1); CARBON DIOXIDE 23.1 mmol/L (21-32); CHLORIDE 105 mmol/L (98-107); COR CA(FOR HYPOALB) 8.9 mg/dL (8.5-10.1); CREATININE 2.59 mg/dL (0.70-1.30); GLUCOSE 109 mg/dL (65-99); POTASSIUM 4.8 mmol/L (3.5-5.1); SODIUM 138 mmol/L (136-145); eGFR NON BLACK RACES 25 (>60)
[2022-10-21] MEDS: PULMICORT NEB TX 0.5 MG NEB SCH ×2 (08:11→20:48)
[2022-10-21] MEDS: HEMOCYTE-PLUS PO SCH ×2 (09:04→21:48)
[2022-10-21] MEDS: ALBUMIN HUMAN 25%- 100 ML 100 ML IV SCH ×2 (09:04→21:49)
[2022-10-21] MEDS: COREG TAB 6.25 MG PO SCH ×2 (09:05→21:49)
[2022-10-21] MEDS: SODIUM BICARBONATE TAB 650MG PO SCH ×2 (09:05→21:48)
[2022-10-21] MEDS: SINGULAIR TAB 10 MG PO SCH (09:05)
[2022-10-21] MEDS: ASPIRIN EC 81 MG PO SCH (09:05)
[2022-10-21] MEDS: PROSCAR PO SCH (09:05)
[2022-10-21] MEDS: IMDUR PO SCH (09:05)
[2022-10-21] MEDS: CHRONULAC PO SCH (09:05)
[2022-10-21] MEDS: GENTAMICIN TOPICAL OINT TOP SCH ×2 (09:06→21:49)
[2022-10-21] MEDS: LOVENOX INJ 30 MG SYR SC SCH (09:06)
[2022-10-21] MEDS: LANTUS SC SCH (09:07)
[2022-10-21] MEDS: BENADRYL CAP/TAB 25 MG PO PRN ×2 (11:24→21:48)
[2022-10-21] MEDS: NovoLIN R (or HumuLIN R) SUBCUT PRN (11:32)
[2022-10-21] MEDS: VALIUM PO PRN (21:48)
[2022-10-21] MEDS: COLACE CAP 100 MG PO SCH (21:48)
[2022-10-21] MEDS: SNACK - Diabetic Appropriate PO SCH (21:49)
[2022-10-21] MEDS: LASIX IVP SCH (21:50)
--- NOTE | 2022-10-21 22:41 | PCM.PROG ---
Progress Note - Progress Note for Day of Date of Exam: 10/21/22 - Subjective Subjective: IS A 82 YEAR OLD PATIENT OF OURS. HE IS CURRENTLY INPATIENT STATUS FOR TREATMENT OF BILATERAL LOWER EXTREMITY CELLULITIS, CELLULITIS OF RIGHT ELBOW, E.COLI AND KLEBSIELLA UTI, ANASARCA, ACUTE ON CHRONIC RENAL FAILURE, AND GENERALIZED WEAKNESS. HE HAS A PMH OF TYPE 2 DM, HYPERLIPDEMI A, ESSENTIAL HYPERTENSION, CAD, COPD, AND CHF. TODAY, HE IS ALERT AND ORIENTED, SITTING ON THE SIDE OF THE BED ON MORNING ROUNDS. HE COMPLAINS OF PERSISTENT SWELLING AND WEEPING OF THE LOWER EXTREMITIES. HE DOES ADMIT TO SLIGHT IMPROVEMENT IN LOWER EXTREMITY SWELLING TODAY. HE ALSO COMPLAINS OF PERSISTENT SWELLING AND DISCOMFORT OF THE SCROTUM. HE REPORTS SLIGHT IMPROVEMENT IN DISCOMFORT SINCE WE INSERTED A SMITH CATHETER YESTERDAY. HE DENIES SIGNIFICANT IMPROVEMENT IN SWELLING OF THE SCROTUM SINCE WE SAW HIM YESTERDAY. UPON EXAMINATION, HE IS BRADYCARDIC WITH HR IN THE 50s. RHYTHM IS REGULAR. BILATERAL LUNGS ARE NOTED WITH DIMINISHED LUNG SOUNDS THROUGHOUT. ABDOMEN IS ROUND, SOFT, AND NON-TENDER WITH NORMAL BOWEL SOUNDS NOTED IN ALL QUADRANTS. HE CONTINUES TO HAVE DIFFUSE SWELLING OF THE UPPER AND LOWER EXTREMITIES. TRACE EDEMA IS NOTED TO THE UPPER EXTREMITIES. BILATERAL LOWER EXTREMITIES ARE NOTED WITH 1+ PITTING EDEMA. DRESSING TO THE RIGHT ELBOW IS DRY AND INTACT. THERE CONTINUES TO BE ERYTHEMA AND WEEPING OF THE LOWER EXTREMITIES. MODERATE EDEMA OF THE SCROTUM IS NOTED. SMITH CATHETER NOTED TO BEDSIDE DRAINAGE. PATIENT DOES COMPLAIN OF TENDERNESS OF THE LOWER EXTREMITIES WITH PALPATION. HIS VITALS THIS MORNING ARE: 99.0-50-20-93%-144/67. LABS WERE OBTAINED. WBC 15.2, RBC 4.05, HGB 13.1, HCT 39.1, PLT COUNT 186, SODIUM 138, POTASSIUM 4.8, CHLORIDE 105, CARBON DIOXIDE 105, BUN 91, CREATININE 2.59, GLUCOSE 109, CALCIUM 7.9, AST 19, ALT 14, ALK PHOS 72, TOTAL PROTEIN 5.0, ALBUMIN 2.7. HE IS CURRENTLY RECEIVING ALBUMIN 25% IV BID, LASIX 40MG IV BID, LOVENOX 30MG SC DAILY, MEROPENEM 500MG IV Q8H, GENTAMICIN OINTMENT TO LEGS BID, LACTULOSE 30ML DAILY, VALIUM 2.5MG PO Q12H, OTBS ACHS, HUMULIN R SLIDING SCALE, ALBUTEROL NEBS PRN, PULMICORT NEBS BID. HIS HOME MEDICATIONS OF ASPIRIN, COREG, PROSCAR, LANTUS, IMDUR, SINGULAIR, HEMOCYTE PLUS, ALDACTONE, FUROSEMIDE, AND SODIUM BICARBONATE WERE RESUMED. WE WILL CONTINUE WITH CURRENT PLAN OF CARE TODAY. OTHERWISE, WE PLAN TO FOLLOW-UP WITH AM LABS AND CONTINUE TO MONITOR. TIME SPENT ON CLINICAL ASSESSMENT, REVIEWING LABS AND IMAGING, DECISION MAKING, AND DOCUMENTATION GREATER THAN 45 MINUTES. - Past Medical Family Social History Past Med/Fam/Surg Hx: No changes since H&P Allergies: Allergies acetaminophen Allergy (Verified 04/11/18 18:00) azithromycin Allergy (Verified 04/11/18 18:00) clindamycin Allergy (Verified 04/11/18 18:00) hydroxyzine [From Atarax] Allergy (Verified 04/11/18 18:00) pseudoephedrine Allergy (Verified 04/11/18 18:00) ramipril Allergy (Verified 04/11/18 18:00) rosiglitazone Allergy (Verified 04/11/18 18:00) VISTARIL Adverse Reaction (Uncoded 11/05/16 15:46) - Review of Systems ROS: No change since H&P - Vital Signs and I&O's Vital Signs: Temperature 98.5 F Temperature 97.5 F Pulse Rate [Left Brachial] 53 Pulse Rate 52 Pulse Rate 50 Respiratory Rate 19 Respiratory Rate 18 Blood Pressure [Left Arm] 180/70 Blood Pressure [Right Arm] 135/61 Blood Pressure 117/47 O2 Sat by Pulse Oximetry 95 O2 Sat by Pulse Oximetry 95 Intake and Output: Intake & Output 10/19/22 10/20/22 10/21/22 10/22/22 11:59 11:59 11:59 11:59 Intake Total 2340 / 2340 1560 / 1560 1843 / 1843 640 / 640 Output Total 250 / 250 360 / 360 985 / 985 300 / 300 Balance 2089 / 2089 1200 / 1200 858 / 858 340 / 340 - Physical Exam Oriented: Normal Eyes: Normal Ear: Normal Nose: Normal Throat: Normal Respiratory: Generalized, Diminished Cardiovascular: Edema (LOWER EXTREMITIES 1+ PITTING, UPPER EXTREMITIES TRACE PITTING ) : Normal, Other (SMITH CATHETER ) Auscultation: Bowel Sounds: Normal Palpation: Normal Tenderness: Normal Skin: Red (BILATERAL LOWER EXTREMITIES AND RIGHT ELBOW), Tender, Wound (DRAINING BLISTERS TO BILATERAL LOWER EXTREMITIES, LEFT HEEL ULCER, RIGHT ELBOW WOUND ) Musculoskeletal: Right, Left, Leg, Swelling, Tender Psychiatric: Anxiety Mood Description: Anxious Affect: Normal Speech Pattern: Clear, Appropriate - Laboratory and Diagnostics Result Diagrams: 10/21/22 04:54 10/21/22 04:54 Labs: 10/20/22 16:20 Urine,Catheterized Urine Culture - Preliminary 10/14/22 15:15 Blood Blood Culture - Final 10/14/22 15:05 Blood Blood Culture - Final 10/14/22 18:30 Elbow - Right Wound Gram Stain - Final 10/14/22 18:30 Elbow - Right Wound Culture - Final 10/14/22 13:40 Urine,Clean Catch Urine Culture - Final Escherichia Coli Klebsiella Pneumoniae Laboratory WBC 15.2 X10^3/uL (3.6-10.0) H 10/21/22 04:54 RBC 4.05 X10^6/uL (4.7-6.0) L 10/21/22 04:54 Hgb 13.1 g/dL (13.5-18.0) L 10/21/22 04:54 Hct 39.1 % (42.0-54.0) L 10/21/22 04:54 MCV 96.7 fL (80.0-100.0) 10/21/22 04:54 MCH 32.4 pg (27.0-34.0) 10/21/22 04:54 MCHC 33.5 g/dL (33.0-35.0) 10/21/22 04:54 RDW 15.4 % (11.6-16.5) 10/21/22 04:54 Plt Count 186 X10^3/uL (150.0-450.0) 10/21/22 04:54 MPV 9.2 fL (7.4-11.0) 10/21/22 04:54 Neut % (Auto) 81.7 % (42.0-75.0) H 10/21/22 04:54 Lymph % (Auto) 7.9 % (21.0-51.0) L 10/21/22 04:54 [place] % (Auto) 8.4 % (0.0-13.0) 10/21/22 04:54 Eos % (Auto) 1.3 % (0.9-2.9) 10/21/22 04:54 Baso % (Auto) 0.7 % (0.2-1.0) 10/21/22 04:54 Neut # (Auto) 12.4 x10^3/uL (2.2-4.8) H 10/21/22 04:54 Lymph # (Auto) 1.2 X10^3/uL (1.3-2.9) L 10/21/22 04:54 [place] # (Auto) 1.3 x10^3/uL (0.3-0.8) H 10/21/22 04:54 Eos # (Auto) 0.2 x10^3/uL (0.0-0.2) 10/21/22 04:54 Baso # (Auto) 0.1 X10^3/uL (0.0-0.1) 10/21/22 04:54 Absolute Nucleated RBC 0.0 /100WBC 10/21/22 04:54 Sodium 138 mmol/L (136-145) 10/21/22 04:54 Corrected Sodium TNP 10/21/22 04:54 Potassium 4.8 mmol/L (3.5-5.1) 10/21/22 04:54 Chloride 105 mmol/L (98-107) 10/21/22 04:54 Carbon Dioxide 23.1 mmol/L (21-32) 10/21/22 04:54 BUN 91 mg/dL (7-18) H 10/21/22 04:54 Creatinine 2.59 mg/dL (0.70-1.30) H 10/21/22 04:54 Est GFR (MDRD) Af Amer 31 (>60) L 10/21/22 04:54 Est GFR (MDRD) Non-Af 25 (>60) L 10/21/22 04:54 Glucose 109 mg/dL (65-99) H 10/21/22 04:54 POC Glucose (mg/dL) 143 mg/dL (65-99) H 10/21/22 20:09 Calcium 7.9 mg/dL (8.5-10.1) L 10/21/22 04:54 Corrected Calcium 8.9 mg/dL (8.5-10.1) 10/21/22 04:54 Total Bilirubin 0.80 mg/dL (0.2-1.0) 10/21/22 04:54 AST 19 Units/L (15-37) 10/21/22 04:54 ALT 14 Units/L (12-78) 10/21/22 04:54 Alkaline Phosphatase 72 Units/L (46-116) 10/21/22 04:54 Ammonia 29 umol/L (11-32) 10/14/22 15:05 Creatine Kinase 84 Units/L (39-308) 10/14/22 15:05 Troponin I High Sens 35.9 ng/L (4.0-60.0) 10/14/22 15:05 B-Natriuretic Peptide 305 pg/mL (0-79) H 10/14/22 15:05 Total Protein 5.0 g/dL (6.4-8.2) L 10/21/22 04:54 Albumin 2.7 g/dL (3.4-5.0) L 10/21/22 04:54 Globulin 2.3 g/dL (2.5-4.5) L 10/21/22 04:54 Albumin/Globulin Ratio 1.2 Ratio (1.1-2.1) 10/21/22 04:54 Specimen Type Catherized urine 10/20/22 16:20 Urine Color Yellow (YELLOW) 10/20/22 16:20 Urine Appearance Clear (CLEAR) 10/20/22 16:20 Urine pH 5.0 (5.0 - 8.0) 10/20/22 16:20 Ur Specific [place] 1.015 (1.000-1.030) 10/20/22 16:20 Urine Protein Negative (NEGATIVE) 10/20/22 16:20 Urine Glucose (UA) Negative (NEGATIVE) 10/20/22 16:20 Urine Ketones Negative (NEGATIVE) 10/20/22 16:20 Urine Blood 4+ (NEGATIVE) 10/20/22 16:20 Urine Nitrite Negative (NEGATIVE) 10/20/22 16:20 Urine Bilirubin Negative (NEGATIVE) 10/20/22 16:20 Urine Urobilinogen Normal (NORMAL) 10/20/22 16:20 Ur Leukocyte Esterase 1+ (NEGATIVE) 10/20/22 16:20 Urine RBC 10-20 /HPF (0-3) A 10/20/22 16:20 Urine WBC 3-5 /HPF (0-5) 10/20/22 16:20 Ur Squamous Epith Cells Rare /HPF (NEGATIVE) 10/20/22 16:20 Amorphous Sediment Trace /HPF (NEGATIVE) 10/19/22 10:25 Urine Bacteria 1+ /HPF (NEGATIVE) 10/20/22 16:20 Urine Mucus Rare /HPF (NEGATIVE) 10/19/22 10:25 Ur Culture Indicated? Yes/culture set up 10/20/22 16:20 - Plan (1) Bilateral lower leg cellulitis Status: Acute Plan: WOUND CARE, LASIX 40MG IV BID, ALBUMIN 25% IV BID, LOVENOX 30MG SC DAILY, MEROPENEM 500MG IV Q8H, GENTAMICIN OINTMENT TO LEGS BID, LACTULOSE 30ML DAILY, VALIUM 2.5MG PO Q12H, OTBS ACHS, HUMULIN R SLIDING SCALE, ALBUTEROL NEBS PRN, PULMICORT NEBS BID (2) Cellulitis of right elbow Status: Acute (3) Anasarca Status: Acute (4) Acute on chronic renal failure Status: Acute Qualifiers: Acute renal failure type: unspecified Chronic kidney disease stage: stage 4 (severe) Qualified Code(s): N17.9 - Acute kidney failure, unspecified; N18.4 - Chronic kidney disease, stage 4 (severe) (5) Generalized weakness Status: Acute (6) Shortness of breath Status: Acute (7) Hyperlipidemia Status: Chronic Qualifiers: Hyperlipidemia type: mixed hyperlipidemia Qualified Code(s): E78.2 - Mixed hyperlipidemia (8) Diabetes mellitus, type 2 Status: Chronic Qualifiers: Diabetes mellitus termite helper insulin use: with termite helper use Diabetes mellitus complication status: with unspecified complications Plan: RESUME HOME MEDS (9) Essential hypertension Status: Chronic (10) CAD (coronary artery disease) Status: Chronic Qualifiers: Coronary Disease-Associated Artery/Lesion type: [place] artery [place] vs. transplanted heart: [place] heart Associated angina: without angina Qualified Code(s): I25.10 - Atherosclerotic heart disease of [place] coronary artery without angina pectoris Plan: RESUME HOME MEDS (11) COPD (chronic obstructive pulmonary disease) Status: Chronic Qualifiers: COPD type: chronic bronchitis Plan: RESUME HOME MEDS (12) CHF (congestive heart failure) Status: Chronic Plan: RESUME HOME MEDS
[2022-10-22] MEDS: BENADRYL CAP/TAB 25 MG PO PRN ×2 (03:04→20:20)
[2022-10-22] MEDS ORDERED: NS 100 ML IV 100 ML ONE (03:40)
[2022-10-22] MEDS: MERREM VIAL 500 MG in NS 100 ML IV 100 ML IV SCH ×3 (05:00→21:31)
[2022-10-22 05:30] LABS: BASOPHILS # (AUTO) 0.1 X10^3/uL (0.0-0.1); BASOPHILS % (AUTO) 0.8 % (0.2-1.0); EOSINOPHILS # (AUTO) 0.3 x10^3/uL (0.0-0.2); EOSINOPHILS % (AUTO) 2.1 % (0.9-2.9); HEMATOCRIT 38.8 % (42.0-54.0); HEMOGLOBIN 13.2 g/dL (13.5-18.0); LYMPHOCYTES % (AUTO) 6.8 % (21.0-51.0); MEAN CORPUSCULAR HEMOGLOBIN 32.6 pg (27.0-34.0); MEAN CORPUSCULAR HGB CONC 33.9 g/dL (33.0-35.0); MONOCYTES # (AUTO) 1.3 x10^3/uL (0.3-0.8); NEUTROPHILS # (AUTO) 11.7 x10^3/uL (2.2-4.8); NEUTROPHILS % (AUTO) 81.3 % (42.0-75.0); PLATELET COUNT 180 X10^3/uL (150.0-450.0); RED BLOOD COUNT 4.04 X10^6/uL (4.7-6.0); RED CELL DISTRIBUTION WIDTH 15.4 % (11.6-16.5); WHITE BLOOD COUNT 14.4 X10^3/uL (3.6-10.0)
[2022-10-22 05:38] LABS: ALANINE AMINOTRANSFERASE 18 Units/L (12-78); ALBUMIN 2.6 g/dL (3.4-5.0); ALKALINE PHOSPHATASE 69 Units/L (46-116); ASPARTATE AMINO TRANSFERASE 17 Units/L (15-37); BLOOD UREA NITROGEN 109 mg/dL (7-18); CALCIUM 7.9 mg/dL (8.5-10.1); CARBON DIOXIDE 23.4 mmol/L (21-32); CHLORIDE 104 mmol/L (98-107); CREATININE 2.62 mg/dL (0.70-1.30); GLUCOSE 96 mg/dL (65-99); POTASSIUM 4.6 mmol/L (3.5-5.1); SODIUM 138 mmol/L (136-145); eGFR NON BLACK RACES 25 (>60)
[2022-10-22] MEDS: PULMICORT NEB TX 0.5 MG NEB SCH ×2 (08:30→21:00)
--- NOTE | 2022-10-22 08:31 | RAD ---
HISTORYShortness of breath and weaknessSTUDYCHEST, 1 [id number] trachea is midline. The cardiac silhouette is enlarged with a tortuous thoracic aorta. Prior changes of median sternotomy and CABG are noted. A pacing device overlying the left hemithorax is observed. The lungs are clear without focal infiltrate or effusion. The bony thorax is unremarkable.IMPRESSIONNo acute cardiopulmonary disease.Electronically signed by: TAMI ALEXANDRA (Oct 22, 2022 08:29:08)
[2022-10-22] MEDS: PROSCAR PO SCH (08:36)
[2022-10-22] MEDS: COLACE CAP 100 MG PO SCH ×2 (08:36→20:19)
[2022-10-22] MEDS: LASIX IVP SCH (08:36)
[2022-10-22] MEDS: ALBUMIN HUMAN 25%- 100 ML 100 ML IV SCH ×2 (08:36→20:19)
[2022-10-22] MEDS: LOVENOX INJ 30 MG SYR SC SCH (08:36)
[2022-10-22] MEDS: SODIUM BICARBONATE TAB 650MG PO SCH ×2 (08:36→20:20)
[2022-10-22] MEDS: CHRONULAC PO SCH (08:36)
[2022-10-22] MEDS: SINGULAIR TAB 10 MG PO SCH (08:37)
[2022-10-22] MEDS: HEMOCYTE-PLUS PO SCH ×2 (08:37→20:20)
[2022-10-22] MEDS: ASPIRIN EC 81 MG PO SCH (08:37)
[2022-10-22] MEDS: LANTUS SC SCH (08:37)
[2022-10-22] MEDS: COREG TAB 6.25 MG PO SCH ×2 (08:37→20:20)
[2022-10-22] MEDS: IMDUR PO SCH (08:37)
--- NOTE | 2022-10-22 17:04 | PCM.PROG ---
Progress Note - Progress Note for Day of Date of Exam: 10/22/22 - Subjective Subjective: IS A 82 YEAR OLD PATIENT OF OURS. HE IS CURRENTLY INPATIENT STATUS FOR TREATMENT OF BILATERAL LOWER EXTREMITY CELLULITIS, CELLULITIS OF RIGHT ELBOW, E.COLI AND KLEBSIELLA UTI, ANASARCA, ACUTE ON CHRONIC RENAL FAILURE, AND GENERALIZED WEAKNESS. HE HAS A PMH OF TYPE 2 DM, HYPERLIPDEMI A, ESSENTIAL HYPERTENSION, CAD, COPD, AND CHF. TODAY, HE IS ALERT AND ORIENTED, SITTING ON THE SIDE OF THE BED ON MORNING ROUNDS. HE COMPLAINS OF PERSISTENT SWELLING AND WEEPING OF THE LOWER EXTREMITIES AND SCROTUM. HE DOES ADMIT TO SLIGHT IMPROVEMENT IN SWELLING TODAY. HE CONTINUES WITH SEVERE WEAKNESS TO LOWER EXTREMITIES. HE HAS BEEN UNABLE TO AMBULATE OR STAND WITHOUT MAXIUMUM ASSISTANCE. UPON EXAMINATION, HE IS BRADYCARDIC WITH HR IN THE 50s. RHYTHM IS REGULAR. BILATERAL LUNGS ARE NOTED WITH DIMINISHED LUNG SOUNDS THROUGHOUT. ABDOMEN IS ROUND, SOFT, AND NON-TENDER WITH NORMAL BOWEL SOUNDS NOTED IN ALL QUADRANTS. TRACE EDEMA IS NOTED TO THE UPPER EXTREMITIES. DRESSING TO THE RIGHT ELBOW IS DRY AND INTACT. BILATERAL LOWER EXTREMITIES ARE NOTED WITH 1+ PITTING EDEMA. THERE CONTINUES TO BE ERYTHEMA AND WEEPING OF THE LOWER EXTREMITIES. MODERATE EDEMA OF THE SCROTUM IS NOTED. SMITH CATHETER NOTED TO BEDSIDE DRAINAGE. PATIENT DOES COMPLAIN OF TENDERNESS OF THE LOWER EXTREMITIES WITH PAL PATION. HIS VITALS THIS MORNING ARE: 98.5-57-20-95%-140/67. LABS WERE OBTAINED. WBC 14.4, RBC 4.04, HGB 13.2, HCT 38.8, PLT COUNT 180, SODIUM 138, POTASSIUM 4.6, CHLORIDE 104, BUN 109, CREATININE 2.62, GLUCOSE 96, CALCIUM 7.9, AST 17, ALT 18, ALK PHOS 69. HE IS CURRENTLY RECEIVING ALBUMIN 25% IV BID, LASIX 40MG IV BID, LOVENOX 30MG SC DAILY, MEROPENEM 500MG IV Q8H, GENTAMICIN OINTMENT TO LEGS BID, LACTULOSE 30ML DAILY, VALIUM 2.5MG PO Q12H, OTBS ACHS, HUMULIN R SLIDING SCALE, ALBUTEROL NEBS PRN, PULMICORT NEBS BID. HIS HOME MEDICATIONS OF ASPIRIN, COREG, PROSCAR, LANTUS, IMDUR, SINGULAIR, HEMOCYTE PLUS, ALDACTONE, FUROSEMIDE, AND SODIUM BICARBONATE WERE RESUMED. WE WILL HOLD HIS LASIX AND ALDACTONE TODAY DUE TO ELEVATED BUN AND CREATINING. WE WILL REASSESS TOMORROW. WE HAVE ENCOURAGED HIM TO PARTICIPATE WITH PHYSICAL THERAPY MUCH HE CAN. OTHERWISE, WE PLAN TO FOLLOW-UP WITH AM LABS AND CONTINUE TO MONITOR. TIME SPENT ON CLINICAL ASSESSMENT, REVIEWING LABS AND IMAGING, DECISION MAKING, AND DOCUMENTATION GREATER THAN 45 MINUTES. - Past Medical Family Social History Past Med/Fam/Surg Hx: No changes since H&P Allergies: Allergies acetaminophen Allergy (Verified 04/11/18 18:00) azithromycin Allergy (Verified 04/11/18 18:00) clindamycin Allergy (Verified 04/11/18 18:00) hydroxyzine [From Atarax] Allergy (Verified 04/11/18 18:00) pseudoephedrine Allergy (Verified 04/11/18 18:00) ramipril Allergy (Verified 04/11/18 18:00) rosiglitazone Allergy (Verified 04/11/18 18:00) VISTARIL Adverse Reaction (Uncoded 11/05/16 15:46) - Review of Systems ROS: No change since H&P - Vital Signs and I&O's Vital Signs: Temperature 98.2 F Temperature 97.5 F Pulse Rate [Left Brachial] 54 Pulse Rate 50 Pulse Rate 50 Respiratory Rate 20 Respiratory Rate 18 Blood Pressure [Left Arm] 180/70 Blood Pressure [Right Arm] 177/71 Blood Pressure 117/47 O2 Sat by Pulse Oximetry 94 O2 Sat by Pulse Oximetry 95 Intake and Output: Intake & Output 10/20/22 10/21/22 10/22/22 10/23/22 11:59 11:59 11:59 11:59 Intake Total 1560 / 1560 1843 / 1843 1485 / 1485 800 / 800 Output Total 360 / 360 985 / 985 775 / 775 400 / 400 Balance 1200 / 1200 858 / 858 710 / 710 400 / 400 - Physical Exam Oriented: Normal Eyes: Normal Ear: Normal Nose: Normal Throat: Normal Respiratory: Generalized, Diminished Cardiovascular: Edema (LOWER EXTREMITIES 1+ PITTING, UPPER EXTREMITIES TRACE PITTING ) : Normal, Other (SMITH CATHETER ) Auscultation: Bowel Sounds: Normal Tenderness: Normal Skin: Red (BILATERAL LOWER EXTREMITIES AND RIGHT ELBOW), Tender, Wound (DRAINING BLISTERS TO BILATERAL LOWER EXTREMITIES, LEFT HEEL ULCER, RIGHT ELBOW WOUND ) Musculoskeletal: Right, Left, Leg, Swelling, Tender Psychiatric: Anxiety Mood Description: Anxious Affect: Normal Speech Pattern: Clear, Appropriate - Laboratory and Diagnostics Result Diagrams: 10/22/22 04:45 10/22/22 04:45 Labs: 10/20/22 16:20 Urine,Catheterized Urine Culture - Final 10/14/22 15:15 Blood Blood Culture - Final 10/14/22 15:05 Blood Blood Culture - Final 10/14/22 18:30 Elbow - Right Wound Gram Stain - Final 10/14/22 18:30 Elbow - Right Wound Culture - Final 10/14/22 13:40 Urine,Clean Catch Urine Culture - Final Escherichia Coli Klebsiella Pneumoniae Laboratory WBC 14.4 X10^3/uL (3.6-10.0) H 10/22/22 04:45 RBC 4.04 X10^6/uL (4.7-6.0) L 10/22/22 04:45 Hgb 13.2 g/dL (13.5-18.0) L 10/22/22 04:45 Hct 38.8 % (42.0-54.0) L 10/22/22 04:45 MCV 96.0 fL (80.0-100.0) 10/22/22 04:45 MCH 32.6 pg (27.0-34.0) 10/22/22 04:45 MCHC 33.9 g/dL (33.0-35.0) 10/22/22 04:45 RDW 15.4 % (11.6-16.5) 10/22/22 04:45 Plt Count 180 X10^3/uL (150.0-450.0) 10/22/22 04:45 MPV 9.0 fL (7.4-11.0) 10/22/22 04:45 Neut % (Auto) 81.3 % (42.0-75.0) H 10/22/22 04:45 Lymph % (Auto) 6.8 % (21.0-51.0) L 10/22/22 04:45 [place] % (Auto) 9.0 % (0.0-13.0) 10/22/22 04:45 Eos % (Auto) 2.1 % (0.9-2.9) 10/22/22 04:45 Baso % (Auto) 0.8 % (0.2-1.0) 10/22/22 04:45 Neut # (Auto) 11.7 x10^3/uL (2.2-4.8) H 10/22/22 04:45 Lymph # (Auto) 1.0 X10^3/uL (1.3-2.9) L 10/22/22 04:45 [place] # (Auto) 1.3 x10^3/uL (0.3-0.8) H 10/22/22 04:45 Eos # (Auto) 0.3 x10^3/uL (0.0-0.2) H 10/22/22 04:45 Baso # (Auto) 0.1 X10^3/uL (0.0-0.1) 10/22/22 04:45 Absolute Nucleated RBC 0.1 /100WBC 10/22/22 04:45 Sodium 138 mmol/L (136-145) 10/22/22 04:45 Corrected Sodium TNP 10/22/22 04:45 Potassium 4.6 mmol/L (3.5-5.1) 10/22/22 04:45 Chloride 104 mmol/L (98-107) 10/22/22 04:45 Carbon Dioxide 23.4 mmol/L (21-32) 10/22/22 04:45 BUN 109 mg/dL (7-18) H 10/22/22 04:45 Creatinine 2.62 mg/dL (0.70-1.30) H 10/22/22 04:45 Est GFR (MDRD) Af Amer 30 (>60) L 10/22/22 04:45 Est GFR (MDRD) Non-Af 25 (>60) L 10/22/22 04:45 Glucose 96 mg/dL (65-99) 10/22/22 04:45 POC Glucose (mg/dL) 168 mg/dL (65-99) H 10/22/22 16:50 Calcium 7.9 mg/dL (8.5-10.1) L 10/22/22 04:45 Corrected Calcium 9.0 mg/dL (8.5-10.1) 10/22/22 04:45 Total Bilirubin 0.80 mg/dL (0.2-1.0) 10/22/22 04:45 AST 17 Units/L (15-37) 10/22/22 04:45 ALT 18 Units/L (12-78) 10/22/22 04:45 Alkaline Phosphatase 69 Units/L (46-116) 10/22/22 04:45 Ammonia 29 umol/L (11-32) 10/14/22 15:05 Creatine Kinase 84 Units/L (39-308) 10/14/22 15:05 Troponin I High Sens 35.9 ng/L (4.0-60.0) 10/14/22 15:05 B-Natriuretic Peptide 305 pg/mL (0-79) H 10/14/22 15:05 Total Protein 5.0 g/dL (6.4-8.2) L 10/22/22 04:45 Albumin 2.6 g/dL (3.4-5.0) L 10/22/22 04:45 Globulin 2.4 g/dL (2.5-4.5) L 10/22/22 04:45 Albumin/Globulin Ratio 1.1 Ratio (1.1-2.1) 10/22/22 04:45 Specimen Type Catherized urine 10/20/22 16:20 Urine Color Yellow (YELLOW) 10/20/22 16:20 Urine Appearance Clear (CLEAR) 10/20/22 16:20 Urine pH 5.0 (5.0 - 8.0) 10/20/22 16:20 Ur Specific [place] 1.015 (1.000-1.030) 10/20/22 16:20 Urine Protein Negative (NEGATIVE) 10/20/22 16:20 Urine Glucose (UA) Negative (NEGATIVE) 10/20/22 16:20 Urine Ketones Negative (NEGATIVE) 10/20/22 16:20 Urine Blood 4+ (NEGATIVE) 10/20/22 16:20 Urine Nitrite Negative (NEGATIVE) 10/20/22 16:20 Urine Bilirubin Negative (NEGATIVE) 10/20/22 16:20 Urine Urobilinogen Normal (NORMAL) 10/20/22 16:20 Ur Leukocyte Esterase 1+ (NEGATIVE) 10/20/22 16:20 Urine RBC 10-20 /HPF (0-3) A 10/20/22 16:20 Urine WBC 3-5 /HPF (0-5) 10/20/22 16:20 Ur Squamous Epith Cells Rare /HPF (NEGATIVE) 10/20/22 16:20 Amorphous Sediment Trace /HPF (NEGATIVE) 10/19/22 10:25 Urine Bacteria 1+ /HPF (NEGATIVE) 10/20/22 16:20 Urine Mucus Rare /HPF (NEGATIVE) 10/19/22 10:25 Ur Culture Indicated? Yes/culture set up 10/20/22 16:20 - Plan (1) Bilateral lower leg cellulitis Status: Acute Plan: WOUND CARE, LASIX 40MG IV BID (HOLD TODAY DUE TO ELEVATED BUN/CREAT), ALBUMIN 25% IV BID, LOVENOX 30MG SC DAILY, MEROPENEM 500MG IV Q8H, GENTAMICIN OINTMENT TO LEGS BID, LACTULOSE 30ML DAILY, VALIUM 2.5MG PO Q12H, OTBS ACHS, HUMULIN R SLIDING SCALE, ALBUTEROL NEBS PRN, PULMICORT NEBS BID (2) Cellulitis of right elbow Status: Acute (3) Anasarca Status: Acute (4) Acute on chronic renal failure Status: Acute Qualifiers: Acute renal failure type: unspecified Chronic kidney disease stage: stage 4 (severe) Qualified Code(s): N17.9 - Acute kidney failure, unspecified; N18.4 - Chronic kidney disease, stage 4 (severe) (5) Generalized weakness Status: Acute (6) Shortness of breath Status: Acute (7) Hyperlipidemia Status: Chronic Qualifiers: Hyperlipidemia type: mixed hyperlipidemia Qualified Code(s): E78.2 - Mixed hyperlipidemia (8) Diabetes mellitus, type 2 Status: Chronic Qualifiers: Diabetes mellitus usp insulin use: with moth exterminator use Diabetes mellitus complication status: with unspecified complications Plan: RESUME HOME MEDS (9) Essential hypertension Status: Chronic (10) CAD (coronary artery disease) Status: Chronic Qualifiers: Coronary Disease-Associated Artery/Lesion type: [place] artery [place] vs. transplanted heart: [place] heart Associated angina: without angina Qualified Code(s): I25.10 - Atherosclerotic heart disease of [place] coronary artery without angina pectoris Plan: RESUME HOME MEDS (11) COPD (chronic obstructive pulmonary disease) Status: Chronic Qualifiers: COPD type: chronic bronchitis Plan: RESUME HOME MEDS (12) CHF (congestive heart failure) Status: Chronic Plan: RESUME HOME MEDS
[2022-10-22] MEDS: NovoLIN R (or HumuLIN R) SUBCUT PRN (17:19)
[2022-10-22] MEDS: VALIUM PO PRN (20:19)
[2022-10-22] MEDS: SNACK - Diabetic Appropriate PO SCH (20:20)
[2022-10-23] MEDS: MERREM VIAL 500 MG in NS 100 ML IV 100 ML IV SCH ×3 (05:25→21:04)
[2022-10-23 05:42] LABS: BASOPHILS # (AUTO) 0.1 X10^3/uL (0.0-0.1); BASOPHILS % (AUTO) 0.9 % (0.2-1.0); EOSINOPHILS # (AUTO) 0.4 x10^3/uL (0.0-0.2); EOSINOPHILS % (AUTO) 2.4 % (0.9-2.9); HEMATOCRIT 39.5 % (42.0-54.0); HEMOGLOBIN 13.3 g/dL (13.5-18.0); LYMPHOCYTES # (AUTO) 1.2 X10^3/uL (1.3-2.9); MEAN CORPUSCULAR HEMOGLOBIN 32.5 pg (27.0-34.0); MEAN CORPUSCULAR HGB CONC 33.7 g/dL (33.0-35.0); MEAN CORPUSCULAR VOLUME 96.5 fL (80.0-100.0); MEAN PLATELET VOLUME 8.4 fL (7.4-11.0); MONOCYTES # (AUTO) 1.3 x10^3/uL (0.3-0.8); MONOCYTES % (AUTO) 8.9 % (0.0-13.0); NEUTROPHILS # (AUTO) 11.9 x10^3/uL (2.2-4.8); NEUTROPHILS % (AUTO) 79.8 % (42.0-75.0); PLATELET COUNT 191 X10^3/uL (150.0-450.0); RED BLOOD COUNT 4.09 X10^6/uL (4.7-6.0); RED CELL DISTRIBUTION WIDTH 15.2 % (11.6-16.5)
[2022-10-23 05:53] LABS: ALBUMIN 2.6 g/dL (3.4-5.0); CARBON DIOXIDE 23.4 mmol/L (21-32); COR CA(FOR HYPOALB) 9.1 mg/dL (8.5-10.1); CREATININE 2.62 mg/dL (0.70-1.30); POTASSIUM 4.8 mmol/L (3.5-5.1); TOTAL PROTEIN 4.9 g/dL (6.4-8.2)
[2022-10-23] MEDS: PULMICORT NEB TX 0.5 MG NEB SCH ×2 (08:15→21:05)
[2022-10-23] MEDS: ALBUMIN HUMAN 25%- 100 ML 100 ML IV SCH ×2 (08:38→20:34)
[2022-10-23] MEDS: LOVENOX INJ 30 MG SYR SC SCH (08:40)
[2022-10-23] MEDS: PROSCAR PO SCH (08:42)
[2022-10-23] MEDS: SINGULAIR TAB 10 MG PO SCH (08:42)
[2022-10-23] MEDS: COREG TAB 6.25 MG PO SCH ×2 (08:43→20:34)
[2022-10-23] MEDS: SODIUM BICARBONATE TAB 650MG PO SCH ×2 (08:43→20:34)
[2022-10-23] MEDS: COLACE CAP 100 MG PO SCH ×2 (08:43→20:34)
[2022-10-23] MEDS: IMDUR PO SCH (08:43)
[2022-10-23] MEDS: ASPIRIN EC 81 MG PO SCH (08:43)
[2022-10-23] MEDS: CHRONULAC PO SCH (08:44)
[2022-10-23] MEDS: HEMOCYTE-PLUS PO SCH ×2 (08:44→20:34)
[2022-10-23] MEDS: LANTUS SC SCH (08:44)
[2022-10-23] MEDS: NovoLIN R (or HumuLIN R) SUBCUT PRN (12:03)
[2022-10-23] MEDS: NS 1,000 ML IV 1,000 ML IV SCH (12:03)
--- NOTE | 2022-10-23 13:17 | PCM.PROG ---
Progress Note - Progress Note for Day of Date of Exam: 10/23/22 - Subjective Subjective: IS A 82 YEAR OLD PATIENT OF OURS. HE IS CURRENTLY INPATIENT STATUS FOR TREATMENT OF BILATERAL LOWER EXTREMITY CELLULITIS, CELLULITIS OF RIGHT ELBOW, E.COLI AND KLEBSIELLA UTI, ANASARCA, ACUTE ON CHRONIC RENAL FAILURE, AND GENERALIZED WEAKNESS. HE HAS A PMH OF TYPE 2 DM, HYPERLIPDEMI A, ESSENTIAL HYPERTENSION, CAD, COPD, AND CHF. TODAY, HE IS ALERT AND ORIENTED, SITTING ON THE SIDE OF THE BED ON MORNING ROUNDS. HE COMPLAINS OF PERSISTENT SWELLING AND WEEPING OF THE LOWER EXTREMITIES AND SCROTUM. HE DENIES SIGNIFICANT CHANGE IN SYMPTOMS SINCE WE SAW HIM YESTERDAY. HE CONTINUES WITH SEVERE WEAKNESS TO LOWER EXTREMITIES. HE HAS BEEN UNABLE TO AMBULATE OR STAND WITHOUT MAXIUMUM ASSISTANCE. UPON EXAMINATION, HE IS BRADYCARDIC WITH HR IN THE 50s. RHYTHM IS REGULAR. BILATERAL LUNGS ARE NOTED WITH DIMINISHED LUNG SOUNDS THROUGHOUT. ABDOMEN IS ROUND, SOFT, AND NON-TENDER WITH NORMAL BOWEL SOUNDS NOTED IN ALL QUADRANTS. TRACE EDEMA IS NOTED TO THE UPPER EXTREMITIES. DRESSING TO THE RIGHT ELBOW IS DRY AND INTACT. BILATERAL LOWER EXTREMITIES ARE NOTED WITH 1+ PITTING EDEMA. THERE CONTINUES TO BE ERYTHEMA AND WEEPING OF THE LOWER EXTREMITIES. MODERATE EDEMA OF THE SCROTUM IS NOTED. SMITH CATHETER NOTED TO BEDSIDE DRAINAGE. PATIENT DOES COMPLAIN OF TENDERNESS OF THE LOWER EXTREMITIES WITH PALPATION. HIS VITALS THIS MORNING ARE: 98.8-51-22-95%-136/65. LABS WERE OBTAINED. WBC WBC 15.0, RBC 4.09, HGB 13.3, HCT 39.5, PLT COUNT 191, SODIUM 138, POTASSIUM 4.8, CHLORIDE 104, BUN 125, CREATININE 2.62, GLUCOSE 134, CALCIUM 8.0, AST 18, ALT 18, ALK PHOS 74, TOTAL PROTEIN 4.9, ALBUMIN 2.6. HE IS CURRENTLY RECEIVING ALBUMIN 25% IV BID, LOVENOX 30MG SC DAILY, MEROPENEM 500MG IV Q8H, GENTAMICIN OINTMENT TO LEGS BID, LACTULOSE 30ML DAILY, VALIUM 2.5MG PO Q12H, OTBS ACHS, HUMULIN R SLIDING SCALE, ALBUTEROL NEBS PRN, PULMICORT NEBS BID. HIS HOME MEDICATIONS OF ASPIRIN, COREG, PROSCAR, LANTUS, IMDUR, SINGULAIR, HEMOCYTE PLUS, ALDACTONE, FUROSEMIDE, AND SODIUM BICARBONATE WERE RESUMED. WE HELD HIS LASIX AND ALDACTONE YESTERDAY DUE TO ELEVATED BUN AND CREATININE. BUN/CREAT ARE MORE ELEVATED TODAY DESPITE HOLDING LASIX AND ALDACTONE. WE WILL NOW NEED TO REHYDRATE HIM TO REVERSE SOME OF THE RENAL FAILURE. WE WILL ADD NORMAL SALINE AT 75 ML/HR. WE HAVE ENCOURAGED HIM TO PARTICIPATE WITH PHYSICAL THERAPY MUCH HE CAN. OTHERWISE, WE PLAN TO FOLLOW-UP WITH AM LABS AND CONTINUE TO MONITOR. TIME SPENT ON CLINICAL ASSESSMENT, REVIEWING LABS AND IMAGING, DECISION MAKING, AND DOCUMENTATION GREATER THAN 45 MINUTES. - Past Medical Family Social History Past Med/Fam/Surg Hx: No changes since H&P Allergies: Allergies acetaminophen Allergy (Verified 04/11/18 18:00) azithromycin Allergy (Verified 04/11/18 18:00) clindamycin Allergy (Verified 04/11/18 18:00) hydroxyzine [From Atarax] Allergy (Verified 04/11/18 18:00) pseudoephedrine Allergy (Verified 04/11/18 18:00) ramipril Allergy (Verified 04/11/18 18:00) rosiglitazone Allergy (Verified 04/11/18 18:00) VISTARIL Adverse Reaction (Uncoded 11/05/16 15:46) - Review of Systems ROS: No change since H&P - Vital Signs and I&O's Vital Signs: Temperature 98.7 F Temperature 97.5 F Pulse Rate [Left Brachial] 50 Pulse Rate 47 Pulse Rate 50 Respiratory Rate 22 Respiratory Rate 18 Blood Pressure [Left Arm] 136/65 Blood Pressure [Right Arm] 133/61 Blood Pressure 117/47 O2 Sat by Pulse Oximetry 96 O2 Sat by Pulse Oximetry 95 Intake and Output: Intake & Output 10/21/22 10/22/22 10/23/22 10/24/22 11:59 11:59 11:59 11:59 Intake Total 1843 / 1843 1485 / 1485 1172 / 1172 Output Total 985 / 985 775 / 775 775 / 775 Balance 858 / 858 710 / 710 397 / 397 - Physical Exam Oriented: Normal Eyes: Normal Ear: Normal Nose: Normal Throat: Normal Respiratory: Generalized, Diminished Cardiovascular: Edema (LOWER EXTREMITIES 1+ PITTING, UPPER EXTREMITIES TRACE PITTING ) : Normal, Other (SMITH CATHETER ) Auscultation: Bowel Sounds: Normal Palpation: Normal Tenderness: Normal Skin: Red (BILATERAL LOWER EXTREMITIES AND RIGHT ELBOW), Tender, Wound (DRAINING BLISTERS TO BILATERAL LOWER EXTREMITIES, LEFT HEEL ULCER, RIGHT ELBOW WOUND ) Musculoskeletal: Right, Left, Leg, Swelling, Tender Psychiatric: Anxiety Mood Description: Anxious Affect: Normal Speech Pattern: Clear, Appropriate - Laboratory and Diagnostics Result Diagrams: 10/23/22 05:17 10/23/22 05:17 Labs: 10/20/22 16:20 Urine,Catheterized Urine Culture - Final 10/14/22 15:15 Blood Blood Culture - Final 10/14/22 15:05 Blood Blood Culture - Final 10/14/22 18:30 Elbow - Right Wound Gram Stain - Final 10/14/22 18:30 Elbow - Right Wound Culture - Final 10/14/22 13:40 Urine,Clean Catch Urine Culture - Final Escherichia Coli Klebsiella Pneumoniae Laboratory WBC 15.0 X10^3/uL (3.6-10.0) H 10/23/22 05:17 RBC 4.09 X10^6/uL (4.7-6.0) L 10/23/22 05:17 Hgb 13.3 g/dL (13.5-18.0) L 10/23/22 05:17 Hct 39.5 % (42.0-54.0) L 10/23/22 05:17 MCV 96.5 fL (80.0-100.0) 10/23/22 05:17 MCH 32.5 pg (27.0-34.0) 10/23/22 05:17 MCHC 33.7 g/dL (33.0-35.0) 10/23/22 05:17 RDW 15.2 % (11.6-16.5) 10/23/22 05:17 Plt Count 191 X10^3/uL (150.0-450.0) 10/23/22 05:17 MPV 8.4 fL (7.4-11.0) 10/23/22 05:17 Neut % (Auto) 79.8 % (42.0-75.0) H 10/23/22 05:17 Lymph % (Auto) 8.0 % (21.0-51.0) L 10/23/22 05:17 [place] % (Auto) 8.9 % (0.0-13.0) 10/23/22 05:17 Eos % (Auto) 2.4 % (0.9-2.9) 10/23/22 05:17 Baso % (Auto) 0.9 % (0.2-1.0) 10/23/22 05:17 Neut # (Auto) 11.9 x10^3/uL (2.2-4.8) H 10/23/22 05:17 Lymph # (Auto) 1.2 X10^3/uL (1.3-2.9) L 10/23/22 05:17 [place] # (Auto) 1.3 x10^3/uL (0.3-0.8) H 10/23/22 05:17 Eos # (Auto) 0.4 x10^3/uL (0.0-0.2) H 10/23/22 05:17 Baso # (Auto) 0.1 X10^3/uL (0.0-0.1) 10/23/22 05:17 Absolute Nucleated RBC 0.0 /100WBC 10/23/22 05:17 Sodium 138 mmol/L (136-145) 10/23/22 05:17 Corrected Sodium 139 mmol/L (136-145) 10/23/22 05:17 Potassium 4.8 mmol/L (3.5-5.1) 10/23/22 05:17 Chloride 104 mmol/L (98-107) 10/23/22 05:17 Carbon Dioxide 23.4 mmol/L (21-32) 10/23/22 05:17 BUN 125 mg/dL (7-18) H 10/23/22 05:17 Creatinine 2.62 mg/dL (0.70-1.30) H 10/23/22 05:17 Est GFR (MDRD) Af Amer 30 (>60) L 10/23/22 05:17 Est GFR (MDRD) Non-Af 25 (>60) L 10/23/22 05:17 Glucose 134 mg/dL (65-99) H 10/23/22 05:17 POC Glucose (mg/dL) 183 mg/dL (65-99) H 10/23/22 11:19 Calcium 8.0 mg/dL (8.5-10.1) L 10/23/22 05:17 Corrected Calcium 9.1 mg/dL (8.5-10.1) 10/23/22 05:17 Total Bilirubin 0.80 mg/dL (0.2-1.0) 10/23/22 05:17 AST 18 Units/L (15-37) 10/23/22 05:17 ALT 18 Units/L (12-78) 10/23/22 05:17 Alkaline Phosphatase 74 Units/L (46-116) 10/23/22 05:17 Ammonia 29 umol/L (11-32) 10/14/22 15:05 Creatine Kinase 84 Units/L (39-308) 10/14/22 15:05 Troponin I High Sens 35.9 ng/L (4.0-60.0) 10/14/22 15:05 B-Natriuretic Peptide 305 pg/mL (0-79) H 10/14/22 15:05 Total Protein 4.9 g/dL (6.4-8.2) L 10/23/22 05:17 Albumin 2.6 g/dL (3.4-5.0) L 10/23/22 05:17 Globulin 2.3 g/dL (2.5-4.5) L 10/23/22 05:17 Albumin/Globulin Ratio 1.1 Ratio (1.1-2.1) 10/23/22 05:17 Specimen Type Catherized urine 10/20/22 16:20 Urine Color Yellow (YELLOW) 10/20/22 16:20 Urine Appearance Clear (CLEAR) 10/20/22 16:20 Urine pH 5.0 (5.0 - 8.0) 10/20/22 16:20 Ur Specific [place] 1.015 (1.000-1.030) 10/20/22 16:20 Urine Protein Negative (NEGATIVE) 10/20/22 16:20 Urine Glucose (UA) Negative (NEGATIVE) 10/20/22 16:20 Urine Ketones Negative (NEGATIVE) 10/20/22 16:20 Urine Blood 4+ (NEGATIVE) 10/20/22 16:20 Urine Nitrite Negative (NEGATIVE) 10/20/22 16:20 Urine Bilirubin Negative (NEGATIVE) 10/20/22 16:20 Urine Urobilinogen Normal (NORMAL) 10/20/22 16:20 Ur Leukocyte Esterase 1+ (NEGATIVE) 10/20/22 16:20 Urine RBC 10-20 /HPF (0-3) A 10/20/22 16:20 Urine WBC 3-5 /HPF (0-5) 10/20/22 16:20 Ur Squamous Epith Cells Rare /HPF (NEGATIVE) 10/20/22 16:20 Amorphous Sediment Trace /HPF (NEGATIVE) 10/19/22 10:25 Urine Bacteria 1+ /HPF (NEGATIVE) 10/20/22 16:20 Urine Mucus Rare /HPF (NEGATIVE) 10/19/22 10:25 Ur Culture Indicated? Yes/culture set up 10/20/22 16:20 - Plan (1) Bilateral lower leg cellulitis Status: Acute Plan: WOUND CARE, NORMAL SALINE AT 75 ML/HR, ALBUMIN 25% IV BID, LOVENOX 30MG SC DAILY, MEROPENEM 500MG IV Q8H, GENTAMICIN OINTMENT TO LEGS BID, LACTULOSE 30ML DAILY, VALIUM 2.5MG PO Q12H, OTBS ACHS, HUMULIN R SLIDING SCALE, ALBUTEROL NEBS PRN, PULMICORT NEBS BID (2) Cellulitis of right elbow Status: Acute (3) Anasarca Status: Acute (4) Acute on chronic renal failure Status: Acute Qualifiers: Acute renal failure type: unspecified Chronic kidney disease stage: stage 4 (severe) Qualified Code(s): N17.9 - Acute kidney failure, unspecified; N18.4 - Chronic kidney disease, stage 4 (severe) (5) Generalized weakness Status: Acute (6) Shortness of breath Status: Acute (7) Hyperlipidemia Status: Chronic Qualifiers: Hyperlipidemia type: mixed hyperlipidemia Qualified Code(s): E78.2 - Mixed hyperlipidemia (8) Diabetes mellitus, type 2 Status: Chronic Qualifiers: Diabetes mellitus residential insulin use: with residential use Diabetes mellitus complication status: with unspecified complications Plan: RESUME HOME MEDS (9) Essential hypertension Status: Chronic (10) CAD (coronary artery disease) Status: Chronic Qualifiers: Coronary Disease-Associated Artery/Lesion type: [place] artery [place] vs. transplanted heart: [place] heart Associated angina: without angina Qualified Code(s): I25.10 - Atherosclerotic heart disease of [place] coronary artery without angina pectoris Plan: RESUME HOME MEDS (11) COPD (chronic obstructive pulmonary disease) Status: Chronic Qualifiers: COPD type: chronic bronchitis Plan: RESUME HOME MEDS (12) CHF (congestive heart failure) Status: Chronic Plan: RESUME HOME MEDS
[2022-10-23 17:50] VITALS: BMI 36.6
[2022-10-23] MEDS: BENADRYL CAP/TAB 25 MG PO PRN (17:50)
[2022-10-23] MEDS: SNACK - Diabetic Appropriate PO SCH (20:34)
[2022-10-24] MEDS: MERREM VIAL 500 MG in NS 100 ML IV 100 ML IV SCH ×3 (05:16→21:52)
[2022-10-24] MEDS: NS 1,000 ML IV 1,000 ML IV SCH ×3 (05:17→17:36)
--- NOTE | 2022-10-24 06:31 | RAD ---
HISTORYShortness of breathSTUDYCHEST, 1 [id number] trachea is midline. The cardiac silhouette is enlarged with a tortuous thoracic aorta. Prior changes of median sternotomy and CABG are noted. A pacing device overlying the left hemithorax is observed. The lungs are clear without focal infiltrate or effusion. The bony thorax is unremarkable.IMPRESSIONNo acute cardiopulmonary disease.Electronically signed by: TAMI ALEXANDRA (Oct 24, 2022 06:30:07)
[2022-10-24 06:34] LABS: BASOPHILS # (AUTO) 0.1 X10^3/uL (0.0-0.1); BASOPHILS % (AUTO) 0.7 % (0.2-1.0); EOSINOPHILS # (AUTO) 0.4 x10^3/uL (0.0-0.2); EOSINOPHILS % (AUTO) 2.5 % (0.9-2.9); HEMATOCRIT 40.2 % (42.0-54.0); HEMOGLOBIN 13.4 g/dL (13.5-18.0); LYMPHOCYTES # (AUTO) 1.1 X10^3/uL (1.3-2.9); LYMPHOCYTES % (AUTO) 6.4 % (21.0-51.0); MEAN CORPUSCULAR HEMOGLOBIN 32.5 pg (27.0-34.0); MEAN CORPUSCULAR HGB CONC 33.3 g/dL (33.0-35.0); MEAN CORPUSCULAR VOLUME 97.6 fL (80.0-100.0); MEAN PLATELET VOLUME 8.8 fL (7.4-11.0); MONOCYTES # (AUTO) 1.3 x10^3/uL (0.3-0.8); MONOCYTES % (AUTO) 7.9 % (0.0-13.0); NEUTROPHILS # (AUTO) 13.5 x10^3/uL (2.2-4.8); NEUTROPHILS % (AUTO) 82.5 % (42.0-75.0); PLATELET COUNT 193 X10^3/uL (150.0-450.0); RED BLOOD COUNT 4.12 X10^6/uL (4.7-6.0); RED CELL DISTRIBUTION WIDTH 15.4 % (11.6-16.5); WHITE BLOOD COUNT 16.4 X10^3/uL (3.6-10.0)
[2022-10-24 06:43] LABS: ALBUMIN 2.6 g/dL (3.4-5.0); CALCIUM 7.7 mg/dL (8.5-10.1); CARBON DIOXIDE 22.3 mmol/L (21-32); COR CA(FOR HYPOALB) 8.8 mg/dL (8.5-10.1); CREATININE 2.62 mg/dL (0.70-1.30); POTASSIUM 4.9 mmol/L (3.5-5.1); TOTAL PROTEIN 4.9 g/dL (6.4-8.2)
[2022-10-24] MEDS: PULMICORT NEB TX 0.5 MG NEB SCH ×2 (08:24→20:32)
[2022-10-24] MEDS: ALBUMIN HUMAN 25%- 100 ML 100 ML IV SCH ×2 (08:51→20:07)
[2022-10-24] MEDS: HEMOCYTE-PLUS PO SCH ×2 (08:51→20:05)
[2022-10-24] MEDS: ASPIRIN EC 81 MG PO SCH (08:52)
[2022-10-24] MEDS: IMDUR PO SCH (08:52)
[2022-10-24] MEDS: SINGULAIR TAB 10 MG PO SCH (08:52)
[2022-10-24] MEDS: COLACE CAP 100 MG PO SCH ×2 (08:52→20:06)
[2022-10-24] MEDS: SODIUM BICARBONATE TAB 650MG PO SCH ×2 (08:52→20:06)
[2022-10-24] MEDS: PROSCAR PO SCH (08:52)
[2022-10-24] MEDS: LOVENOX INJ 30 MG SYR SC SCH (08:52)
[2022-10-24] MEDS: COREG TAB 6.25 MG PO SCH ×2 (08:53→20:06)
[2022-10-24] MEDS: LANTUS SC SCH (08:53)
[2022-10-24] MEDS: CHRONULAC PO SCH (08:54)
--- NOTE | 2022-10-24 10:55 | PCM.PROG ---
Progress Note - Progress Note for Day of Date of Exam: 10/24/22 - Subjective Subjective: IS A 82 YEAR OLD PATIENT OF OURS. HE IS CURRENTLY INPATIENT STATUS FOR TREATMENT OF BILATERAL LOWER EXTREMITY CELLULITIS, CELLULITIS OF RIGHT ELBOW, E.COLI AND KLEBSIELLA UTI, ANASARCA, ACUTE ON CHRONIC RENAL FAILURE, AND GENERALIZED WEAKNESS. HE HAS A PMH OF TYPE 2 DM, HYPERLIPDEMI A, ESSENTIAL HYPERTENSION, CAD, COPD, AND CHF. TODAY, HE IS ALERT AND ORIENTED, LYING IN BED ON MORNING ROUNDS. HE COMPLAINS OF PERSISTENT SWELLING LOWER EXTREMITIES AND SCROTUM. HE DENIES SIGNIFICANT CHANGE IN SYMPTOMS SINCE WE SAW HIM YESTERDAY. HE CONTINUES WITH SEVERE WEAKNESS TO LOWER EXTREMITIES WELL. HE HAS BEEN UNABLE TO AMBULATE OR STAND WITHOUT MAXIUMUM ASSISTANCE. UPON EXAMINATION, HE IS BRADYCARDIC WITH HR IN THE 50s. RHYTHM IS REGULAR. BILATERAL LUNGS ARE NOTED WITH DIMINISHED LUNG SOUNDS THROUGHOUT. ABDOMEN IS ROUND, SOFT, AND NON-TENDER WITH NORMAL BOWEL SOUNDS NOTED IN ALL QUADRANTS. TRACE EDEMA IS NOTED TO THE UPPER EXTREMITIES. DRESSING TO THE RIGHT ELBOW IS DRY AND INTACT. BILATERAL LOWER EXTREMITIES ARE NOTED WITH 1+ PITTING EDEMA. THERE CONTINUES TO BE ERYTHEMA OF THE LOWER EXTREMITIES. MODERATE EDEMA OF THE SCROTUM IS NOTED. SMITH CATHETER NOTED TO BEDSIDE DRAINAGE. PATIENT DOES COMPLAIN OF TENDERNESS OF THE LOWER EXTREMITIES WITH PALPATION. HIS VITALS THIS MORNING ARE: 98.7-51-22-96%-149/68. LABS WERE OBTAINED. WBC 16.4, RBC 4.12, HGB 13.4, HCT 40.2, PLT COUNT 193, SODIUM 138, POTASSIUM 4.9, CHLORIDE 104, BUN 134, CREATININE 2.62, GLUCOSE 140, CALCIUM 7.7, AST 20, ALT 20, ALK PHOS 81, BNP 497, TOTAL PROTEIN 4.9, ALBUMIN 2.6. HE IS CURRENTLY RECEIVING NORMAL SALINE AT 75 ML/HR, ALBUMIN 25% IV BID, LOVENOX 30MG SC DAILY, MEROPENEM 500MG IV Q8H, GENTAMICIN OINTMENT TO LEGS BID, LACTULOSE 30ML DAILY, VALIUM 2.5MG PO Q12H, OTBS ACHS, HUMULIN R SLIDING SCALE, ALBUTEROL NEBS PRN, PULMICORT NEBS BID. HIS HOME MEDICATIONS OF ASPIRIN, COREG, PROSCAR, LANTUS, IMDUR, SINGULAIR, HEMOCYTE PLUS, AND SODIUM BICARBONATE WERE RESUMED. WE HAVE BEEN HOLDING HIS LASIX AND ALDACTONE FOR THE PAST FEW DAYS DUE TO ELEVATED BUN AND CREATININE. BUN/CREAT ARE MORE ELEVATED TODAY DESPITE HOLDING LASIX AND ALDACTONE. WE WILL CONTINUE WITH CURRENT PLAN OF CARE TODAY. WE HAVE ENCOURAGED HIM TO PARTICIPATE WITH PHYSICAL THERAPY MUCH HE CAN. WE WILL REACH OUT TO HIS GED TUTOR, , TOMORROW. OTHERWISE, WE PLAN TO FOLLOW-UP WITH AM LABS AND CONTINUE TO MONITOR. TIME SPENT ON CLINICAL ASSESSMENT, REVIEWING LABS AND IMAGING, DECISION MAKING, AND DOCUMENTATION GREATER THAN 45 MINUTES. - Past Medical Family Social History Past Med/Fam/Surg Hx: No changes since H&P Allergies: Allergies acetaminophen Allergy (Verified 04/11/18 18:00) azithromycin Allergy (Verified 04/11/18 18:00) clindamycin Allergy (Verified 04/11/18 18:00) hydroxyzine [From Atarax] Allergy (Verified 04/11/18 18:00) pseudoephedrine Allergy (Verified 04/11/18 18:00) ramipril Allergy (Verified 04/11/18 18:00) rosiglitazone Allergy (Verified 04/11/18 18:00) VISTARIL Adverse Reaction (Uncoded 11/05/16 15:46) - Review of Systems ROS: No change since H&P - Vital Signs and I&O's Vital Signs: Temperature 98.7 F Temperature 97.5 F Pulse Rate [Left Brachial] 51 Pulse Rate 51 Pulse Rate 50 Respiratory Rate 22 Respiratory Rate 18 Blood Pressure [Left Arm] 131/63 Blood Pressure [Right Arm] 149/68 Blood Pressure 117/47 O2 Sat by Pulse Oximetry 96 O2 Sat by Pulse Oximetry 95 Intake and Output: Intake & Output 10/21/22 10/22/22 10/23/22 10/24/22 11:59 11:59 11:59 11:59 Intake Total 1843 / 1843 1485 / 1485 1172 / 1172 2223 / 2223 Output Total 985 / 985 775 / 775 775 / 775 650 / 650 Balance 858 / 858 710 / 710 397 / 397 1573 / 1573 - Physical Exam Oriented: Normal Eyes: Normal Ear: Normal Nose: Normal Throat: Normal Respiratory: Generalized, Diminished Cardiovascular: Edema (LOWER EXTREMITIES 1+ PITTING, UPPER EXTREMITIES TRACE PITTING ) : Normal, Other (SMITH CATHETER ) Auscultation: Bowel Sounds: Normal Palpation: Normal Tenderness: Normal Skin: Red (BILATERAL LOWER EXTREMITIES AND RIGHT ELBOW), Tender, Wound (DRAINING BLISTERS TO BILATERAL LOWER EXTREMITIES, LEFT HEEL ULCER, RIGHT ELBOW WOUND ) Musculoskeletal: Right, Left, Leg, Swelling, Tender Psychiatric: Anxiety Mood Description: Anxious Affect: Normal Speech Pattern: Clear, Appropriate - Laboratory and Diagnostics Result Diagrams: 10/24/22 06:15 10/24/22 06:15 Labs: 10/20/22 16:20 Urine,Catheterized Urine Culture - Final 10/14/22 15:15 Blood Blood Culture - Final 10/14/22 15:05 Blood Blood Culture - Final 10/14/22 18:30 Elbow - Right Wound Gram Stain - Final 10/14/22 18:30 Elbow - Right Wound Culture - Final 10/14/22 13:40 Urine,Clean Catch Urine Culture - Final Escherichia Coli Klebsiella Pneumoniae Laboratory WBC 16.4 X10^3/uL (3.6-10.0) H 10/24/22 06:15 RBC 4.12 X10^6/uL (4.7-6.0) L 10/24/22 06:15 Hgb 13.4 g/dL (13.5-18.0) L 10/24/22 06:15 Hct 40.2 % (42.0-54.0) L 10/24/22 06:15 MCV 97.6 fL (80.0-100.0) 10/24/22 06:15 MCH 32.5 pg (27.0-34.0) 10/24/22 06:15 MCHC 33.3 g/dL (33.0-35.0) 10/24/22 06:15 RDW 15.4 % (11.6-16.5) 10/24/22 06:15 Plt Count 193 X10^3/uL (150.0-450.0) 10/24/22 06:15 MPV 8.8 fL (7.4-11.0) 10/24/22 06:15 Neut % (Auto) 82.5 % (42.0-75.0) H 10/24/22 06:15 Lymph % (Auto) 6.4 % (21.0-51.0) L 10/24/22 06:15 [place] % (Auto) 7.9 % (0.0-13.0) 10/24/22 06:15 Eos % (Auto) 2.5 % (0.9-2.9) 10/24/22 06:15 Baso % (Auto) 0.7 % (0.2-1.0) 10/24/22 06:15 Neut # (Auto) 13.5 x10^3/uL (2.2-4.8) H 10/24/22 06:15 Lymph # (Auto) 1.1 X10^3/uL (1.3-2.9) L 10/24/22 06:15 [place] # (Auto) 1.3 x10^3/uL (0.3-0.8) H 10/24/22 06:15 Eos # (Auto) 0.4 x10^3/uL (0.0-0.2) H 10/24/22 06:15 Baso # (Auto) 0.1 X10^3/uL (0.0-0.1) 10/24/22 06:15 Absolute Nucleated RBC 0.1 /100WBC 10/24/22 06:15 Sodium 138 mmol/L (136-145) 10/24/22 06:15 Corrected Sodium 139 mmol/L (136-145) 10/24/22 06:15 Potassium 4.9 mmol/L (3.5-5.1) 10/24/22 06:15 Chloride 104 mmol/L (98-107) 10/24/22 06:15 Carbon Dioxide 22.3 mmol/L (21-32) 10/24/22 06:15 BUN 134 mg/dL (7-18) H 10/24/22 06:15 Creatinine 2.62 mg/dL (0.70-1.30) H 10/24/22 06:15 Est GFR (MDRD) Af Amer 30 (>60) L 10/24/22 06:15 Est GFR (MDRD) Non-Af 25 (>60) L 10/24/22 06:15 Glucose 140 mg/dL (65-99) H 10/24/22 06:15 POC Glucose (mg/dL) 134 mg/dL (65-99) H 10/24/22 05:36 Calcium 7.7 mg/dL (8.5-10.1) L 10/24/22 06:15 Corrected Calcium 8.8 mg/dL (8.5-10.1) 10/24/22 06:15 Total Bilirubin 0.70 mg/dL (0.2-1.0) 10/24/22 06:15 AST 20 Units/L (15-37) 10/24/22 06:15 ALT 20 Units/L (12-78) 10/24/22 06:15 Alkaline Phosphatase 81 Units/L (46-116) 10/24/22 06:15 Ammonia 29 umol/L (11-32) 10/14/22 15:05 Creatine Kinase 84 Units/L (39-308) 10/14/22 15:05 Troponin I High Sens 35.9 ng/L (4.0-60.0) 10/14/22 15:05 B-Natriuretic Peptide 497 pg/mL (0-79) H 10/24/22 06:15 Total Protein 4.9 g/dL (6.4-8.2) L 10/24/22 06:15 Albumin 2.6 g/dL (3.4-5.0) L 10/24/22 06:15 Globulin 2.3 g/dL (2.5-4.5) L 10/24/22 06:15 Albumin/Globulin Ratio 1.1 Ratio (1.1-2.1) 10/24/22 06:15 Specimen Type Catherized urine 10/20/22 16:20 Urine Color Yellow (YELLOW) 10/20/22 16:20 Urine Appearance Clear (CLEAR) 10/20/22 16:20 Urine pH 5.0 (5.0 - 8.0) 10/20/22 16:20 Ur Specific [place] 1.015 (1.000-1.030) 10/20/22 16:20 Urine Protein Negative (NEGATIVE) 10/20/22 16:20 Urine Glucose (UA) Negative (NEGATIVE) 10/20/22 16:20 Urine Ketones Negative (NEGATIVE) 10/20/22 16:20 Urine Blood 4+ (NEGATIVE) 10/20/22 16:20 Urine Nitrite Negative (NEGATIVE) 10/20/22 16:20 Urine Bilirubin Negative (NEGATIVE) 10/20/22 16:20 Urine Urobilinogen Normal (NORMAL) 10/20/22 16:20 Ur Leukocyte Esterase 1+ (NEGATIVE) 10/20/22 16:20 Urine RBC 10-20 /HPF (0-3) A 10/20/22 16:20 Urine WBC 3-5 /HPF (0-5) 10/20/22 16:20 Ur Squamous Epith Cells Rare /HPF (NEGATIVE) 10/20/22 16:20 Amorphous Sediment Trace /HPF (NEGATIVE) 10/19/22 10:25 Urine Bacteria 1+ /HPF (NEGATIVE) 10/20/22 16:20 Urine Mucus Rare /HPF (NEGATIVE) 10/19/22 10:25 Ur Culture Indicated? Yes/culture set up 10/20/22 16:20 - Plan (1) Bilateral lower leg cellulitis Status: Acute Plan: WOUND CARE, NORMAL SALINE AT 75 ML/HR, ALBUMIN 25% IV BID, LOVENOX 30MG SC DAILY, MEROPENEM 500MG IV Q8H, GENTAMICIN OINTMENT TO LEGS BID, LACTULOSE 30ML DAILY, VALIUM 2.5MG PO Q12H, OTBS ACHS, HUMULIN R SLIDING SCALE, ALBUTEROL NEBS PRN, PULMICORT NEBS BID (2) Cellulitis of right elbow Status: Acute (3) Anasarca Status: Acute (4) Acute on chronic renal failure Status: Acute Qualifiers: Acute renal failure type: unspecified Chronic kidney disease stage: stage 4 (severe) Qualified Code(s): N17.9 - Acute kidney failure, unspecified; N18.4 - Chronic kidney disease, stage 4 (severe) (5) Generalized weakness Status: Acute (6) Shortness of breath Status: Acute (7) Hyperlipidemia Status: Chronic Qualifiers: Hyperlipidemia type: mixed hyperlipidemia Qualified Code(s): E78.2 - Mixed hyperlipidemia (8) Diabetes mellitus, type 2 Status: Chronic Qualifiers: Diabetes mellitus correction insulin use: with intermediate frame tender use Diabetes mellitus complication status: with unspecified complications Plan: RESUME HOME MEDS (9) Essential hypertension Status: Chronic (10) CAD (coronary artery disease) Status: Chronic Qualifiers: Coronary Disease-Associated Artery/Lesion type: [place] artery [place] vs. transplanted heart: [place] heart Associated angina: without angina Qualified Code(s): I25.10 - Atherosclerotic heart disease of [place] coronary artery without angina pectoris Plan: RESUME HOME MEDS (11) COPD (chronic obstructive pulmonary disease) Status: Chronic Qualifiers: COPD type: chronic bronchitis Plan: RESUME HOME MEDS (12) CHF (congestive heart failure) Status: Chronic Plan: RESUME HOME MEDS
[2022-10-24] MEDS: BENADRYL CAP/TAB 25 MG PO PRN ×2 (17:32→22:30)
[2022-10-24] MEDS: SNACK - Diabetic Appropriate PO SCH (20:12)
[2022-10-25] MEDS: MERREM VIAL 500 MG in NS 100 ML IV 100 ML IV SCH ×3 (05:25→21:30)
[2022-10-25] MEDS: NS 1,000 ML IV 1,000 ML IV SCH ×3 (05:25→18:21)
[2022-10-25 06:31] LABS: BASOPHILS # (AUTO) 0.2 X10^3/uL (0.0-0.1); BASOPHILS % (AUTO) 1.1 % (0.2-1.0); EOSINOPHILS # (AUTO) 0.5 x10^3/uL (0.0-0.2); EOSINOPHILS % (AUTO) 3.2 % (0.9-2.9); HEMATOCRIT 40.3 % (42.0-54.0); HEMOGLOBIN 13.5 g/dL (13.5-18.0); LYMPHOCYTES # (AUTO) 1.1 X10^3/uL (1.3-2.9); LYMPHOCYTES % (AUTO) 6.8 % (21.0-51.0); MEAN CORPUSCULAR HEMOGLOBIN 32.7 pg (27.0-34.0); MEAN CORPUSCULAR HGB CONC 33.6 g/dL (33.0-35.0); MEAN CORPUSCULAR VOLUME 97.4 fL (80.0-100.0); MEAN PLATELET VOLUME 9.2 fL (7.4-11.0); MONOCYTES # (AUTO) 1.3 x10^3/uL (0.3-0.8); MONOCYTES % (AUTO) 7.9 % (0.0-13.0); NEUTROPHILS # (AUTO) 12.9 x10^3/uL (2.2-4.8); PLATELET COUNT 207 X10^3/uL (150.0-450.0); RED BLOOD COUNT 4.14 X10^6/uL (4.7-6.0); RED CELL DISTRIBUTION WIDTH 15.2 % (11.6-16.5); WHITE BLOOD COUNT 15.9 X10^3/uL (3.6-10.0)
[2022-10-25 06:49] LABS: ALBUMIN 2.7 g/dL (3.4-5.0); CALCIUM 7.9 mg/dL (8.5-10.1); CARBON DIOXIDE 19.9 mmol/L (21-32); COR CA(FOR HYPOALB) 8.9 mg/dL (8.5-10.1); CREATININE 2.66 mg/dL (0.70-1.30); POTASSIUM 4.7 mmol/L (3.5-5.1)
[2022-10-25] MEDS: SODIUM BICARBONATE TAB 650MG PO SCH ×3 (08:48→20:29)
[2022-10-25] MEDS: COLACE CAP 100 MG PO SCH ×2 (08:48→20:27)
[2022-10-25] MEDS: ASPIRIN EC 81 MG PO SCH (08:48)
[2022-10-25] MEDS: PROSCAR PO SCH (08:48)
[2022-10-25] MEDS: IMDUR PO SCH (08:48)
[2022-10-25] MEDS: COREG TAB 6.25 MG PO SCH ×2 (08:48→20:27)
[2022-10-25] MEDS: SINGULAIR TAB 10 MG PO SCH (08:48)
[2022-10-25] MEDS: LOVENOX INJ 30 MG SYR SC SCH (08:49)
[2022-10-25] MEDS: HEMOCYTE-PLUS PO SCH ×2 (08:49→20:28)
[2022-10-25] MEDS: ALBUMIN HUMAN 25%- 100 ML 100 ML IV SCH ×2 (08:50→20:24)
[2022-10-25] MEDS: LANTUS SC SCH (08:51)
[2022-10-25] MEDS: CHRONULAC PO SCH ×2 (08:52→09:09)
[2022-10-25] MEDS: PULMICORT NEB TX 0.5 MG NEB SCH ×2 (09:45→20:37)
[2022-10-25] MEDS: PROVENTIL NEB TX 0.083% 2.5MG/ 3ML NEB PRN (09:45)
[2022-10-25] MEDS ORDERED: MAALOX or MYLANTA PO PRN (10:32)
[2022-10-25] MEDS: GENTAMICIN TOPICAL CRM TOP SCH ×2 (10:41→20:29)
[2022-10-25] MEDS: BENADRYL CAP/TAB 25 MG PO PRN ×2 (15:20→21:55)
--- NOTE | 2022-10-25 19:49 | PCM.PROG ---
Progress Note - Progress Note for Day of Date of Exam: 10/25/22 - Subjective Subjective: IS A 82 YEAR OLD PATIENT OF OURS. HE IS CURRENTLY INPATIENT STATUS FOR TREATMENT OF BILATERAL LOWER EXTREMITY CELLULITIS, CELLULITIS OF RIGHT ELBOW, E.COLI AND KLEBSIELLA UTI, ANASARCA, ACUTE ON CHRONIC RENAL FAILURE, AND GENERALIZED WEAKNESS. HE HAS A PMH OF TYPE 2 DM, HYPERLIPDEMI A, ESSENTIAL HYPERTENSION, CAD, COPD, AND CHF. TODAY, HE IS ALERT AND ORIENTED, LYING IN BED ON MORNING ROUNDS. HE COMPLAINS OF PERSISTENT WEAKNESS AND SWELLING TO LOWER EXTREMITIES AND SCROTUM. HE DENIES SIGNIFICANT CHANGE IN SYMPTOMS SINCE WE SAW HIM YESTERDAY. HE HAS BEEN UNABLE TO AMBULATE OR STAND WITHOUT MAXIUMUM ASSISTANCE. UPON EXAMINATION, HE IS BRADYCARDIC WITH HR IN THE 50s. RHYTHM IS R EGULAR. BILATERAL LUNGS ARE NOTED WITH DIMINISHED LUNG SOUNDS THROUGHOUT. ABDOMEN IS ROUND, SOFT, AND NON-TENDER WITH NORMAL BOWEL SOUNDS NOTED IN ALL QUADRANTS. TRACE EDEMA IS NOTED TO THE UPPER EXTREMITIES. DRESSING TO THE RIGHT ELBOW IS DRY AND INTACT. BILATERAL LOWER EXTREMITIES ARE NOTED WITH 1+ PITTING EDEMA. THERE CONTINUES TO BE ERYTHEMA OF THE LOWER EXTREMITIES. MODERATE EDEMA OF THE SCROTUM IS NOTED. SMITH CATHETER NOTED TO BEDSIDE DRAINAGE. PATIENT DOES COMPLAIN OF TENDERNESS OF THE LOWER EXTREMITIES WITH PALPATION. HIS VITALS THIS MORNING ARE: 97.9-54-20-90%-122/58. LABS WERE OBTAINED. WBC 15.9, RBC 4.14, HGB 13.5, HCT 40.3, PLT COUNT 207, SODIUM 138, POTASSIUM 4.7, CHLORIDE 104, CARBON DIOXIDE 19.9, BUN 145, CREATININE 2.66, GLUCOSE 119, CALCIUM 7.9, TOTAL BILI 0.70, AST 21, ALT 18, ALK PHOS 87, TOTAL PROTEIN 5.0, ALBUMIN 2.7. HE IS CURRENTLY RECEIVING NORMAL SALINE AT 75 ML/HR, ALBUMIN 25% IV BID, LOVENOX 30MG SC DAILY, MEROPENEM 500MG IV Q8H, GENTAMICIN OINTMENT TO LEGS BID, LACTULOSE 30ML DAILY, VALIUM 2.5MG PO Q12H, OTBS ACHS, HUMULIN R SLIDING SCALE, ALBUTEROL NEBS PRN, PULMICORT NEBS BID. HIS HOME MEDICATIONS OF ASPIRIN, COREG, PROSCAR, LANTUS, IMDUR, SINGULAIR, HEMOCYTE PLUS, AND SODIUM BICARBONATE WERE RESUMED. WE HAVE BEEN HOLDING HIS LASIX AND ALDACTONE FOR THE PAST FEW DAYS DUE TO ELEVATED BUN AND CREATININE. BUN/CREAT ARE MORE ELEVATED TODAY DESPITE HOLDING LASIX AND ALDACTONE. WE SPOKE WITH . HE HAS ACCEPTED PATIENT FOR ADMISSION AT [facility] IN [place], [place]. WE ARE WAITING ON A BED ASSIGNMENT, BUT WE HAVE BEEN TOLD THAT IT MAY BE TOMORROW BEFORE A BED IS AVAILABLE. WE WILL CONTINUE WITH CURRENT PLAN OF CARE TODAY. OTHERWISE, WE PLAN TO FOLLOW-UP WITH AM LABS AND CONTINUE TO MONITOR. TIME SPENT ON CLINICAL ASSESSMENT, REVIEWING LABS AND IMAGING, DECISION MAKING, ARRANGING TRANSFER, SPEAKING WITH PHYSICIAN, AND DOCUMENTATION GREATER THAN 75 MINUTES. - Past Medical Family Social History Past Med/Fam/Surg Hx: No changes since H&P Allergies: Allergies acetaminophen Allergy (Verified 04/11/18 18:00) azithromycin Allergy (Verified 04/11/18 18:00) clindamycin Allergy (Verified 04/11/18 18:00) hydroxyzine [From Atarax] Allergy (Verified 04/11/18 18:00) pseudoephedrine Allergy (Verified 04/11/18 18:00) ramipril Allergy (Verified 04/11/18 18:00) rosiglitazone Allergy (Verified 04/11/18 18:00) VISTARIL Adverse Reaction (Uncoded 11/05/16 15:46) - Review of Systems ROS: No change since H&P - Vital Signs and I&O's Vital Signs: Temperature 98.1 F Temperature 97.5 F Pulse Rate [Left Brachial] 50 Pulse Rate 50 Pulse Rate 50 Respiratory Rate 20 Respiratory Rate 18 Blood Pressure [Left Arm] 131/63 Blood Pressure [Right Arm] 165/72 Blood Pressure 117/47 O2 Sat by Pulse Oximetry 96 O2 Sat by Pulse Oximetry 95 Intake and Output: Intake & Output 10/23/22 10/24/22 10/25/22 10/26/22 11:59 11:59 11:59 11:59 Intake Total 1172 / 1172 2223 / 2223 2400 / 2400 833 / 833 Output Total 775 / 775 650 / 650 600 / 600 200 / 200 Balance 397 / 397 1573 / 1573 1800 / 1800 633 / 633 - Physical Exam Oriented: Normal Eyes: Normal Ear: Normal Nose: Normal Throat: Normal Respiratory: Generalized, Diminished Cardiovascular: Edema (LOWER EXTREMITIES 1+ PITTING, UPPER EXTREMITIES TRACE PITTING ) : Normal, Other (SMITH CATHETER ) Auscultation: Bowel Sounds: Normal Tenderness: Normal Skin: Red (BILATERAL LOWER EXTREMITIES AND RIGHT ELBOW), Tender, Wound (DRAINING BLISTERS TO BILATERAL LOWER EXTREMITIES, LEFT HEEL ULCER, RIGHT ELBOW WOUND ) Musculoskeletal: Right, Left, Leg, Swelling, Tender Psychiatric: Anxiety Mood Description: Anxious Affect: Normal Speech Pattern: Clear, Appropriate - Laboratory and Diagnostics Result Diagrams: 10/25/22 05:10 10/25/22 05:10 Labs: 10/20/22 16:20 Urine,Catheterized Urine Culture - Final 10/14/22 15:15 Blood Blood Culture - Final 10/14/22 15:05 Blood Blood Culture - Final 10/14/22 18:30 Elbow - Right Wound Gram Stain - Final 10/14/22 18:30 Elbow - Right Wound Culture - Final 10/14/22 13:40 Urine,Clean Catch Urine Culture - Final Escherichia Coli Klebsiella Pneumoniae Laboratory WBC 15.9 X10^3/uL (3.6-10.0) H 10/25/22 05:10 RBC 4.14 X10^6/uL (4.7-6.0) L 10/25/22 05:10 Hgb 13.5 g/dL (13.5-18.0) 10/25/22 05:10 Hct 40.3 % (42.0-54.0) L 10/25/22 05:10 MCV 97.4 fL (80.0-100.0) 10/25/22 05:10 MCH 32.7 pg (27.0-34.0) 10/25/22 05:10 MCHC 33.6 g/dL (33.0-35.0) 10/25/22 05:10 RDW 15.2 % (11.6-16.5) 10/25/22 05:10 Plt Count 207 X10^3/uL (150.0-450.0) 10/25/22 05:10 MPV 9.2 fL (7.4-11.0) 10/25/22 05:10 Neut % (Auto) 81.0 % (42.0-75.0) H 10/25/22 05:10 Lymph % (Auto) 6.8 % (21.0-51.0) L 10/25/22 05:10 [place] % (Auto) 7.9 % (0.0-13.0) 10/25/22 05:10 Eos % (Auto) 3.2 % (0.9-2.9) H 10/25/22 05:10 Baso % (Auto) 1.1 % (0.2-1.0) H 10/25/22 05:10 Neut # (Auto) 12.9 x10^3/uL (2.2-4.8) H 10/25/22 05:10 Lymph # (Auto) 1.1 X10^3/uL (1.3-2.9) L 10/25/22 05:10 [place] # (Auto) 1.3 x10^3/uL (0.3-0.8) H 10/25/22 05:10 Eos # (Auto) 0.5 x10^3/uL (0.0-0.2) H 10/25/22 05:10 Baso # (Auto) 0.2 X10^3/uL (0.0-0.1) H 10/25/22 05:10 Absolute Nucleated RBC 0.1 /100WBC 10/25/22 05:10 Sodium 138 mmol/L (136-145) 10/25/22 05:10 Corrected Sodium 138 mmol/L (136-145) 10/25/22 05:10 Potassium 4.7 mmol/L (3.5-5.1) 10/25/22 05:10 Chloride 104 mmol/L (98-107) 10/25/22 05:10 Carbon Dioxide 19.9 mmol/L (21-32) L 10/25/22 05:10 BUN 145 mg/dL (7-18) H 10/25/22 05:10 Creatinine 2.66 mg/dL (0.70-1.30) H 10/25/22 05:10 Est GFR (MDRD) Af Amer 30 (>60) L 10/25/22 05:10 Est GFR (MDRD) Non-Af 25 (>60) L 10/25/22 05:10 Glucose 119 mg/dL (65-99) H 10/25/22 05:10 POC Glucose (mg/dL) 73 mg/dL (65-99) 10/25/22 19:23 Calcium 7.9 mg/dL (8.5-10.1) L 10/25/22 05:10 Corrected Calcium 8.9 mg/dL (8.5-10.1) 10/25/22 05:10 Total Bilirubin 0.70 mg/dL (0.2-1.0) 10/25/22 05:10 AST 21 Units/L (15-37) 10/25/22 05:10 ALT 18 Units/L (12-78) 10/25/22 05:10 Alkaline Phosphatase 87 Units/L (46-116) 10/25/22 05:10 Ammonia 29 umol/L (11-32) 10/14/22 15:05 Creatine Kinase 84 Units/L (39-308) 10/14/22 15:05 Troponin I High Sens 35.9 ng/L (4.0-60.0) 10/14/22 15:05 B-Natriuretic Peptide 497 pg/mL (0-79) H 10/24/22 06:15 Total Protein 5.0 g/dL (6.4-8.2) L 10/25/22 05:10 Albumin 2.7 g/dL (3.4-5.0) L 10/25/22 05:10 Globulin 2.3 g/dL (2.5-4.5) L 10/25/22 05:10 Albumin/Globulin Ratio 1.2 Ratio (1.1-2.1) 10/25/22 05:10 Specimen Type Catherized urine 10/20/22 16:20 Urine Color Yellow (YELLOW) 10/20/22 16:20 Urine Appearance Clear (CLEAR) 10/20/22 16:20 Urine pH 5.0 (5.0 - 8.0) 10/20/22 16:20 Ur Specific [place] 1.015 (1.000-1.030) 10/20/22 16:20 Urine Protein Negative (NEGATIVE) 10/20/22 16:20 Urine Glucose (UA) Negative (NEGATIVE) 10/20/22 16:20 Urine Ketones Negative (NEGATIVE) 10/20/22 16:20 Urine Blood 4+ (NEGATIVE) 10/20/22 16:20 Urine Nitrite Negative (NEGATIVE) 10/20/22 16:20 Urine Bilirubin Negative (NEGATIVE) 10/20/22 16:20 Urine Urobilinogen Normal (NORMAL) 10/20/22 16:20 Ur Leukocyte Esterase 1+ (NEGATIVE) 10/20/22 16:20 Urine RBC 10-20 /HPF (0-3) A 10/20/22 16:20 Urine WBC 3-5 /HPF (0-5) 10/20/22 16:20 Ur Squamous Epith Cells Rare /HPF (NEGATIVE) 10/20/22 16:20 Amorphous Sediment Trace /HPF (NEGATIVE) 10/19/22 10:25 Urine Bacteria 1+ /HPF (NEGATIVE) 10/20/22 16:20 Urine Mucus Rare /HPF (NEGATIVE) 10/19/22 10:25 Ur Culture Indicated? Yes/culture set up 10/20/22 16:20 - Plan (1) Acute on chronic renal failure Status: Acute Qualifiers: Acute renal failure type: unspecified Chronic kidney disease stage: stage 4 (severe) Qualified Code(s): N17.9 - Acute kidney failure, unspecified; N18.4 - Chronic kidney disease, stage 4 (severe) Plan: TRANSFER TO TERTIARY CARE FACILITY UNDER CARE OF (2) Bilateral lower leg cellulitis Status: Acute Plan: WOUND CARE, NORMAL SALINE AT 75 ML/HR, ALBUMIN 25% IV BID, LOVENOX 30MG SC DAILY, MEROPENEM 500MG IV Q8H, GENTAMICIN OINTMENT TO LEGS BID, LACTULOSE 30ML DAILY, VALIUM 2.5MG PO Q12H, OTBS ACHS, HUMULIN R SLIDING SCALE, ALBUTEROL NEBS PRN, PULMICORT NEBS BID (3) Cellulitis of right elbow Status: Acute (4) Anasarca Status: Acute (5) Generalized weakness Status: Acute (6) Shortness of breath Status: Acute (7) Hyperlipidemia Status: Chronic Qualifiers: Hyperlipidemia type: mixed hyperlipidemia Qualified Code(s): E78.2 - Mixed hyperlipidemia (8) Diabetes mellitus, type 2 Status: Chronic Qualifiers: Diabetes mellitus terminal manager insulin use: with terminal manager use Diabetes mellitus complication status: with unspecified complications Plan: RESUME HOME MEDS (9) Essential hypertension Status: Chronic (10) CAD (coronary artery disease) Status: Chronic Qualifiers: Coronary Disease-Associated Artery/Lesion type: [place] artery [place] vs. transplanted heart: [place] heart Associated angina: without angina Qualified Code(s): I25.10 - Atherosclerotic heart disease of [place] coronary artery without angina pectoris Plan: RESUME HOME MEDS (11) COPD (chronic obstructive pulmonary disease) Status: Chronic Qualifiers: COPD type: chronic bronchitis Plan: RESUME HOME MEDS (12) CHF (congestive heart failure) Status: Chronic Plan: RESUME HOME MEDS
[2022-10-25] MEDS: SNACK - Diabetic Appropriate PO SCH (20:24)
[2022-10-26] MEDS: VALIUM PO PRN (01:46)
[2022-10-26] MEDS: MERREM VIAL 500 MG in NS 100 ML IV 100 ML IV SCH (05:03)
[2022-10-26 06:26] LABS: BASOPHILS # (AUTO) 0.2 X10^3/uL (0.0-0.1); BASOPHILS % (AUTO) 1.3 % (0.2-1.0); EOSINOPHILS # (AUTO) 0.5 x10^3/uL (0.0-0.2); EOSINOPHILS % (AUTO) 3.1 % (0.9-2.9); HEMATOCRIT 40.9 % (42.0-54.0); HEMOGLOBIN 13.5 g/dL (13.5-18.0); LYMPHOCYTES # (AUTO) 1.2 X10^3/uL (1.3-2.9); LYMPHOCYTES % (AUTO) 7.5 % (21.0-51.0); MEAN CORPUSCULAR HEMOGLOBIN 32.1 pg (27.0-34.0); MEAN CORPUSCULAR VOLUME 97.4 fL (80.0-100.0); MONOCYTES # (AUTO) 1.3 x10^3/uL (0.3-0.8); NEUTROPHILS # (AUTO) 13.2 x10^3/uL (2.2-4.8); NEUTROPHILS % (AUTO) 80.1 % (42.0-75.0); PLATELET COUNT 206 X10^3/uL (150.0-450.0); RED CELL DISTRIBUTION WIDTH 14.9 % (11.6-16.5); WHITE BLOOD COUNT 16.5 X10^3/uL (3.6-10.0)
[2022-10-26] MEDS: NS 1,000 ML IV 1,000 ML IV SCH ×2 (06:33→08:59)
[2022-10-26 06:50] LABS: ALANINE AMINOTRANSFERASE 16 Units/L (12-78); ALBUMIN 2.6 g/dL (3.4-5.0); ALKALINE PHOSPHATASE 84 Units/L (46-116); ASPARTATE AMINO TRANSFERASE 18 Units/L (15-37); BLOOD UREA NITROGEN 150 mg/dL (7-18); CALCIUM 7.9 mg/dL (8.5-10.1); CARBON DIOXIDE 20.8 mmol/L (21-32); CHLORIDE 105 mmol/L (98-107); CREATININE 2.72 mg/dL (0.70-1.30); GLUCOSE 79 mg/dL (65-99); POTASSIUM 4.6 mmol/L (3.5-5.1); SODIUM 139 mmol/L (136-145); TOTAL PROTEIN 4.8 g/dL (6.4-8.2); eGFR NON BLACK RACES 24 (>60)
[2022-10-26] MEDS: PROVENTIL NEB TX 0.083% 2.5MG/ 3ML NEB PRN (08:15)
[2022-10-26] MEDS: PULMICORT NEB TX 0.5 MG NEB SCH (08:15)
[2022-10-26] MEDS: COREG TAB 6.25 MG PO SCH (08:59)
[2022-10-26] MEDS: CHRONULAC PO SCH (08:59)
[2022-10-26] MEDS: LANTUS SC SCH (09:00)
[2022-10-26] MEDS: IMDUR PO SCH (10:08)
[2022-10-26] MEDS: PROSCAR PO SCH (10:09)
[2022-10-26] MEDS: COLACE CAP 100 MG PO SCH (10:09)
[2022-10-26] MEDS ORDERED: NS 1,000 ML IV 1,000 ML with SODIUM BICARBONATE 8.4% INJ ADULT 50 ML IV SCH ×2 (10:09)
[2022-10-26] MEDS: SINGULAIR TAB 10 MG PO SCH (10:09)
[2022-10-26] MEDS: ASPIRIN EC 81 MG PO SCH (10:10)
[2022-10-26] MEDS: HEMOCYTE-PLUS PO SCH (10:11)
[2022-10-26] MEDS: ALBUMIN HUMAN 25%- 100 ML 100 ML IV SCH (10:11)
[2022-10-26] MEDS: LOVENOX INJ 30 MG SYR SC SCH (10:11)
[2022-10-26] MEDS: GENTAMICIN TOPICAL CRM TOP SCH (10:11)
[2022-10-26] MEDS: SODIUM BICARBONATE TAB 650MG PO SCH (10:12)
[2022-10-26] MEDS ORDERED: NS 1,000 ML IV 1,000 ML ONE (11:37)
[2022-10-26 16:54] VITALS: BP 94/52; PULSE 48; TEMP 97.6; O2SAT 98
--- NOTE | 2022-10-26 18:53 | PCM.PROG ---
Progress Note - Progress Note for Day of Date of Exam: 10/26/22 - Subjective Subjective: IS A 82 YEAR OLD PATIENT OF OURS. HE IS CURRENTLY INPATIENT STATUS FOR TREATMENT OF BILATERAL LOWER EXTREMITY CELLULITIS, CELLULITIS OF RIGHT ELBOW, E.COLI AND KLEBSIELLA UTI, ANASARCA, ACUTE ON CHRONIC RENAL FAILURE, AND GENERALIZED WEAKNESS. HE HAS A PMH OF TYPE 2 DM, HYPERLIPDEMI A, ESSENTIAL HYPERTENSION, CAD, COPD, AND CHF. TODAY, HE IS ALERT AND ORIENTED, LYING IN BED ON MORNING ROUNDS. HE COMPLAINS OF PERSISTENT WEAKNESS AND SWELLING TO LOWER EXTREMITIES AND SCROTUM. HE DENIES SIGNIFICANT CHANGE IN SYMPTOMS SINCE WE SAW HIM YESTERDAY. HE HAS BEEN UNABLE TO AMBULATE OR STAND WITHOUT MAXIUMUM ASSISTANCE. UPON EXAMINATION, HE IS BRADYCARDIC WITH HR IN THE 50s. RHYTHM IS R EGULAR. BILATERAL LUNGS ARE NOTED WITH DIMINISHED LUNG SOUNDS THROUGHOUT. ABDOMEN IS ROUND, SOFT, AND NON-TENDER WITH NORMAL BOWEL SOUNDS NOTED IN ALL QUADRANTS. TRACE EDEMA IS NOTED TO THE UPPER EXTREMITIES. DRESSING TO THE RIGHT ELBOW IS DRY AND INTACT. BILATERAL LOWER EXTREMITIES ARE NOTED WITH 1+ PITTING EDEMA. THERE CONTINUES TO BE ERYTHEMA OF THE LOWER EXTREMITIES. MODERATE EDEMA OF THE SCROTUM IS NOTED. SMITH CATHETER NOTED TO BEDSIDE DRAINAGE. PATIENT DOES COMPLAIN OF TENDERNESS OF THE LOWER EXTREMITIES WITH PALPATION. HIS VITALS THIS MORNING ARE: 98.1-51-22-95%-89/40. IT LOOKS LIKE HE HAS BEEN HYPOTENSIVE THROUGHOUT THE NIGHT. LABS WERE OBTAINED. WBC 16.5, RBC 4.20, HGB 13.5, HCT 40 .9, PLT COUNT 206, SODIUM 139, POTASSIUM 4.6, CHLORIDE 105, CARBON DIOXIDE 20.8, BUN 150, CREATININE 2.72, CALCIUM 7.9, GLUCOSE 79, AST 18, ALT 19, ALK PHOS 84, TOTAL PROTEIN 4.8, ALBUMIN 2.6. HE IS CURRENTLY RECEIVING NORMAL SALINE AT 100 ML/HR, ALBUMIN 25% IV BID, LOVENOX 30MG SC DAILY, MEROPENEM 500MG IV Q8H, GENTAMICIN OINTMENT TO LEGS BID, LACTULOSE 30ML DAILY, VALIUM 2.5MG PO Q12H, OTBS ACHS, HUMULIN R SLIDING SCALE, ALBUTEROL NEBS PRN, PULMICORT NEBS BID. HIS HOME MEDICATIONS OF ASPIRIN, COREG, PROSCAR, LANTUS, IMDUR, SINGULAIR, HEMOCYTE PLUS, AND SODIUM BICARBONATE WERE RESUMED. WE HAVE BEEN HOLDING HIS LASIX AND ALDACTONE FOR THE PAST FEW DAYS DUE TO ELEVATED BUN AND CREATININE. BUN/CREAT ARE MORE ELEVATED TODAY DESPITE HOLDING LASIX AND ALDACTONE. WE SPOKE WITH . HE HAS ACCEPTED PATIENT FOR ADMISSION AT [facility] IN [place], [place]. WE ARE STILL WAITING ON A BED ASSIGNMENT. WE WILL CONTINUE WITH CURRENT PLAN OF CARE TODAY. OTHERWISE, WE PLAN TO FOLLOW-UP WITH AM LABS AND CONTINUE TO MONITOR. TIME SPENT ON CLINICAL ASSESSMENT, REVIEWING LABS AND IMAGING, DECISION MAKING, ARRANGING TRANSFER, SPEAKING WITH PHYSICIAN, AND DOCUMENTATION GREATER THAN 45 MINUTES. - Past Medical Family Social History Past Med/Fam/Surg Hx: No changes since H&P Allergies: Allergies acetaminophen Allergy (Verified 04/11/18 18:00) azithromycin Allergy (Verified 04/11/18 18:00) clindamycin Allergy (Verified 04/11/18 18:00) hydroxyzine [From Atarax] Allergy (Verified 04/11/18 18:00) pseudoephedrine Allergy (Verified 04/11/18 18:00) ramipril Allergy (Verified 04/11/18 18:00) rosiglitazone Allergy (Verified 04/11/18 18:00) VISTARIL Adverse Reaction (Uncoded 11/05/16 15:46) - Review of Systems ROS: No change since H&P - Vital Signs and I&O's Vital Signs: Temperature 97.6 F Temperature 97.5 F Pulse Rate [Left Brachial] 48 Pulse Rate 50 Pulse Rate 50 Respiratory Rate 20 Respiratory Rate 18 Blood Pressure [Left Arm] 131/63 Blood Pressure [Right Arm] 94/52 Blood Pressure 117/47 O2 Sat by Pulse Oximetry 98 O2 Sat by Pulse Oximetry 95 Intake and Output: Intake & Output 10/24/22 10/25/22 10/26/22 10/27/22 11:59 11:59 11:59 11:59 Intake Total 2223 / 2223 2400 / 2400 2313 / 2313 1334 / 1334 Output Total 650 / 650 600 / 600 600 / 600 250 / 250 Balance 1573 / 1573 1800 / 1800 1713 / 1713 1084 / 1084 - Physical Exam Oriented: Normal Eyes: Normal Ear: Normal Nose: Normal Throat: Normal Respiratory: Generalized, Diminished Cardiovascular: Edema (LOWER EXTREMITIES 1+ PITTING, UPPER EXTREMITIES TRACE PITTING ) : Normal, Other (SMITH CATHETER ) Auscultation: Bowel Sounds: Normal Tenderness: Normal Skin: Red (BILATERAL LOWER EXTREMITIES AND RIGHT ELBOW), Tender, Wound (DRAINING BLISTERS TO BILATERAL LOWER EXTREMITIES, LEFT HEEL ULCER, RIGHT ELBOW WOUND ) Musculoskeletal: Right, Left, Leg, Swelling, Tender Psychiatric: Anxiety Mood Description: Anxious Affect: Normal Speech Pattern: Clear, Appropriate - Laboratory and Diagnostics Result Diagrams: 10/26/22 05:25 10/26/22 05:25 Labs: 10/20/22 16:20 Urine,Catheterized Urine Culture - Final 10/14/22 15:15 Blood Blood Culture - Final 10/14/22 15:05 Blood Blood Culture - Final 10/14/22 18:30 Elbow - Right Wound Gram Stain - Final 10/14/22 18:30 Elbow - Right Wound Culture - Final 10/14/22 13:40 Urine,Clean Catch Urine Culture - Final Escherichia Coli Klebsiella Pneumoniae Laboratory WBC 16.5 X10^3/uL (3.6-10.0) H 10/26/22 05:25 RBC 4.20 X10^6/uL (4.7-6.0) L 10/26/22 05:25 Hgb 13.5 g/dL (13.5-18.0) 10/26/22 05:25 Hct 40.9 % (42.0-54.0) L 10/26/22 05:25 MCV 97.4 fL (80.0-100.0) 10/26/22 05:25 MCH 32.1 pg (27.0-34.0) 10/26/22 05:25 MCHC 33.0 g/dL (33.0-35.0) 10/26/22 05:25 RDW 14.9 % (11.6-16.5) 10/26/22 05:25 Plt Count 206 X10^3/uL (150.0-450.0) 10/26/22 05:25 MPV 9.0 fL (7.4-11.0) 10/26/22 05:25 Neut % (Auto) 80.1 % (42.0-75.0) H 10/26/22 05:25 Lymph % (Auto) 7.5 % (21.0-51.0) L 10/26/22 05:25 [place] % (Auto) 8.0 % (0.0-13.0) 10/26/22 05:25 Eos % (Auto) 3.1 % (0.9-2.9) H 10/26/22 05:25 Baso % (Auto) 1.3 % (0.2-1.0) H 10/26/22 05:25 Neut # (Auto) 13.2 x10^3/uL (2.2-4.8) H 10/26/22 05:25 Lymph # (Auto) 1.2 X10^3/uL (1.3-2.9) L 10/26/22 05:25 [place] # (Auto) 1.3 x10^3/uL (0.3-0.8) H 10/26/22 05:25 Eos # (Auto) 0.5 x10^3/uL (0.0-0.2) H 10/26/22 05:25 Baso # (Auto) 0.2 X10^3/uL (0.0-0.1) H 10/26/22 05:25 Absolute Nucleated RBC 0.0 /100WBC 10/26/22 05:25 Sodium 139 mmol/L (136-145) 10/26/22 05:25 Corrected Sodium TNP 10/26/22 05:25 Potassium 4.6 mmol/L (3.5-5.1) 10/26/22 05:25 Chloride 105 mmol/L (98-107) 10/26/22 05:25 Carbon Dioxide 20.8 mmol/L (21-32) L 10/26/22 05:25 BUN 150 mg/dL (7-18) H 10/26/22 05:25 Creatinine 2.72 mg/dL (0.70-1.30) H 10/26/22 05:25 Est GFR (MDRD) Af Amer 29 (>60) L 10/26/22 05:25 Est GFR (MDRD) Non-Af 24 (>60) L 10/26/22 05:25 Glucose 79 mg/dL (65-99) 10/26/22 05:25 POC Glucose (mg/dL) 98 mg/dL (65-99) 10/26/22 11:43 Calcium 7.9 mg/dL (8.5-10.1) L 10/26/22 05:25 Corrected Calcium 9.0 mg/dL (8.5-10.1) 10/26/22 05:25 Total Bilirubin 0.50 mg/dL (0.2-1.0) 10/26/22 05:25 AST 18 Units/L (15-37) 10/26/22 05:25 ALT 16 Units/L (12-78) 10/26/22 05:25 Alkaline Phosphatase 84 Units/L (46-116) 10/26/22 05:25 Ammonia 29 umol/L (11-32) 10/14/22 15:05 Creatine Kinase 84 Units/L (39-308) 10/14/22 15:05 Troponin I High Sens 35.9 ng/L (4.0-60.0) 10/14/22 15:05 B-Natriuretic Peptide 497 pg/mL (0-79) H 10/24/22 06:15 Total Protein 4.8 g/dL (6.4-8.2) L 10/26/22 05:25 Albumin 2.6 g/dL (3.4-5.0) L 10/26/22 05:25 Globulin 2.2 g/dL (2.5-4.5) L 10/26/22 05:25 Albumin/Globulin Ratio 1.2 Ratio (1.1-2.1) 10/26/22 05:25 Specimen Type Catherized urine 10/20/22 16:20 Urine Color Yellow (YELLOW) 10/20/22 16:20 Urine Appearance Clear (CLEAR) 10/20/22 16:20 Urine pH 5.0 (5.0 - 8.0) 10/20/22 16:20 Ur Specific [place] 1.015 (1.000-1.030) 10/20/22 16:20 Urine Protein Negative (NEGATIVE) 10/20/22 16:20 Urine Glucose (UA) Negative (NEGATIVE) 10/20/22 16:20 Urine Ketones Negative (NEGATIVE) 10/20/22 16:20 Urine Blood 4+ (NEGATIVE) 10/20/22 16:20 Urine Nitrite Negative (NEGATIVE) 10/20/22 16:20 Urine Bilirubin Negative (NEGATIVE) 10/20/22 16:20 Urine Urobilinogen Normal (NORMAL) 10/20/22 16:20 Ur Leukocyte Esterase 1+ (NEGATIVE) 10/20/22 16:20 Urine RBC 10-20 /HPF (0-3) A 10/20/22 16:20 Urine WBC 3-5 /HPF (0-5) 10/20/22 16:20 Ur Squamous Epith Cells Rare /HPF (NEGATIVE) 10/20/22 16:20 Amorphous Sediment Trace /HPF (NEGATIVE) 10/19/22 10:25 Urine Bacteria 1+ /HPF (NEGATIVE) 10/20/22 16:20 Urine Mucus Rare /HPF (NEGATIVE) 10/19/22 10:25 Ur Culture Indicated? Yes/culture set up 10/20/22 16:20 - Plan (1) Acute on chronic renal failure Status: Acute Qualifiers: Acute renal failure type: unspecified Chronic kidney disease stage: stage 4 (severe) Qualified Code(s): N17.9 - Acute kidney failure, unspecified; N18.4 - Chronic kidney disease, stage 4 (severe) Plan: TRANSFER TO TERTIARY CARE FACILITY UNDER CARE OF (2) Bilateral lower leg cellulitis Status: Acute Plan: WOUND CARE, NORMAL SALINE AT 100 ML/HR, ALBUMIN 25% IV BID, LOVENOX 30MG SC DAILY, MEROPENEM 500MG IV Q8H, GENTAMICIN OINTMENT TO LEGS BID, LACTULOSE 30ML DAILY, VALIUM 2.5MG PO Q12H, OTBS ACHS, HUMULIN R SLIDING SCALE, ALBUTEROL NEBS PRN, PULMICORT NEBS BID (3) Cellulitis of right elbow Status: Acute (4) Anasarca Status: Acute (5) Generalized weakness Status: Acute (6) Shortness of breath Status: Acute (7) Hyperlipidemia Status: Chronic Qualifiers: Hyperlipidemia type: mixed hyperlipidemia Qualified Code(s): E78.2 - Mixed hyperlipidemia (8) Diabetes mellitus, type 2 Status: Chronic Qualifiers: Diabetes mellitus atv mechanic insulin use: with atv mechanic use Diabetes mellitus complication status: with unspecified complications Plan: RESUME HOME MEDS (9) Essential hypertension Status: Chronic (10) CAD (coronary artery disease) Status: Chronic Qualifiers: Coronary Disease-Associated Artery/Lesion type: [place] artery [place] vs. transplanted heart: [place] heart Associated angina: without angina Qualified Code(s): I25.10 - Atherosclerotic heart disease of [place] coronary artery wi thout angina pectoris Plan: RESUME HOME MEDS (11) COPD (chronic obstructive pulmonary disease) Status: Chronic Qualifiers: COPD type: chronic bronchitis Plan: RESUME HOME MEDS (12) CHF (congestive heart failure) Status: Chronic Plan: RESUME HOME MEDS
[2022-10-26] MEDS ORDERED: MERREM VIAL 500 MG in NS 100 ML IV 100 ML IV SCH (21:00)
== END 2022-10-26 17:40 | disposition home or self-care (01) | DRG 603 ==
LOC: MED/SURG → OBSVTOIN 13:09
PROVIDERS: ADMIT Internal Medicine; ATTEND Internal Medicine
DX: N18.4 Chronic kidney disease, stage 4 (severe); J90 Pleural effusion, not elsewhere classified; E11.65 Type 2 diabetes mellitus with hyperglycemia; N17.8 Other acute kidney failure; R00.1 Bradycardia, unspecified; B96.29 Other Escherichia coli [E. coli] as the cause of diseases classified elsewhere; L03.115 Cellulitis of right lower limb; E78.2 Mixed hyperlipidemia; J44.9 Chronic obstructive pulmonary disease, unspecified; Z79.4 Long term (current) use of insulin; K74.60 Unspecified cirrhosis of liver; K59.09 Other constipation; I13.0 Hypertensive heart and chronic kidney disease with heart failure and stage 1 through stage 4 chronic kidney disease, or unspecified chronic kidney disease; R53.1 Weakness; L03.113 Cellulitis of right upper limb; Z95.0 Presence of cardiac pacemaker; I25.10 Atherosclerotic heart disease of native coronary artery without angina pectoris; N50.89 Other specified disorders of the male genital organs; R26.89 Other abnormalities of gait and mobility; I48.20 Chronic atrial fibrillation, unspecified; L89.629 Pressure ulcer of left heel, unspecified stage; L03.116 Cellulitis of left lower limb; N39.0 Urinary tract infection, site not specified; I50.9 Heart failure, unspecified; R60.1 Generalized edema; R06.02 Shortness of breath; E11.22 Type 2 diabetes mellitus with diabetic chronic kidney disease; B96.1 Klebsiella pneumoniae [K. pneumoniae] as the cause of diseases classified elsewhere